=== PATIENT | male | born 1945 | race Caucasian/White ===

== ENCOUNTER 2024-10-06 10:55 | Outpatient (AMB) | payer MEDICARE, MEDICAID, SELFPAY ==
--- NOTE | 2024-10-06 10:57 | A.OFFPC_ITS ---
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 Note: patient here for new patient visit Feather Separator Required: No Accompanied by: Sister Allergies latex Allergy (Intermediate, Verified 10/06/24 11:12) Rash Penicillins Allergy (Intermediate, Verified 10/06/24 11:12) Swelling Medication List - Last Reviewed 10/06/24 by Erika Chicas MA albuterol sulfate 90 mcg/actuation 2 puffs inhalation Q4-6H PRN atorvastatin 80 mg PO DAILY benzonatate 100 mg PO BID PRN cetirizine (All Day Allergy (cetirizine)) 10 mg PO DAILY esomeprazole magnesium (Nexium) 40 mg PO DAILY fluoxetine (Prozac) 20 mg PO DAILY lorazepam 0.5 mg PO BID PRN pregabalin (Lyrica) 75 mg PO BID sucralfate 1 g PO DAILY tamsulosin 0.4 mg PO DAILY Tobacco use date assessed: 10/06/24 Fall risk assessment: 2 + Falls in past year Last assessed Fall Risk: 10/06/24 Dental Screening Dental Screen Date: 10/06/24 Did you have a dental visit in the last 12 months?: Yes Did you have a dental problem in the last 6 months where you did not have access to dental care?: No Was dental information given to patient?: Patient has dentist HPI HPI Comments History of Present Illness Details 79-year-old male, accompanied by his sis angel, presents to [facility]. He was followed by the [place] in [place] but does not recall the last time he was seen. Prior PCP? - Dr. Ortiz, [facility] Last office visit - 20 years ago Last CPE - About 1.5 years ago Last labs - 6-7 months ago Acute issue(s) - Hyperlipidemia: He is on atorvastatin 80 mg daily. - GERD: He is Nexium 40 mg daily and suc ralfate 1 g daily. - BPH: He is on tamsulosin 0.4 mg daily. - BLE neuropathy: He is on pregabalin 75 mg twice daily. - Anxiety and depression: He is on fluox etine 20 mg daily and lorazepam 0.5 mg twice daily as needed. He is followed a psychiatrist every 6 months. - Seasonal allergies: He is on cetirizin e 10 mg daily and Flonase 2 spray in each nostril daily. He is on albuterol inhaler for difficulty breathing during an allergy flare. He has been experiencing frontal headache, runny nose, and cough since yesterday. - Sleep apnea: He is on CPAP. - Chronic low back pain. He had L4-5 fus ion. He takes Tylenol as needed. He did not want opioid prescribed. - Unsteady gait: He uses cane and walker for ambulation. Past Medical History - Hyperlipidemia, GERD, sinusitis, back disorder, BPH, brain aneurysm (2mm), BLE neuropathy, unsteady gait, sleep apnea, anxiety, depression Surgical History - Rotator cuff repair bilateral shoulder , left ankle repair with metal plate, laminectomy with L4-5 fusion, cervical spine fusion Family History - PGF: Alcohol abuse - MGF: Committed suicide Social History - Former smoker, smoked 1/2 pack daily x 15 years. Does not vape. Does not drink alcohol. Denies recreational drug use - Has been making healthy dietary choice s. Exercises routinely. Generally sleep well Health maintenance - Last eye exam was 4 months ago with dieudonne SCHOFIELD in [place]. He was on a release for his PCP to obtain his ophthalmology record - Last dental visit was 6 moths ago - He has never had a tetanus vaccine; he will schedule an appointment for Tdap vaccine when he comes in for blood work - He notes that he is up-date on the isa ngles and pneumonia vaccines. He will obtain his immunization record for his PCP to review - HE notes that he is up-to-date on the flu vaccine - Last colonoscopy was 12 years ago: rob mal. [place] [facility] [place] a [place] Specialists - [facility] Neurology (aneurysm and spine issu es) - Dr. Cedric Paul, psychiatrist [facility] Medical History (Updated 10/06/24 @ 12:21 by Denver Mckinley CNP) Brain aneurysm Depression Anxiety Imbalance Neuropathy Enlarged prostate Acid reflux Back disorder High cholesterol Sinusitis Surgical History (Updated 10/06/24 @ 14:10 by Denver Mckinley CNP) Status post ORIF of fracture of ankle History of repair of left rotator cuff History of repair of right rotator cuff History of laminectomy Family History (Updated 10/06/24 @ 12:55 by Erika Chicas MA) Paternal Grandfather Alcohol abuse Maternal Grandfather Suicide Social History Housing: House Patient Tobacco Use Status: Former Tobacco user Cigarette Packs Per Day: 0.5 Cigarettes Per Day: 10 Years Smoked: 15 e-Cigarette/Vaping Use: Never Used Second Hand Smoke Exposure: No service: No Current occupational status: disabled Current occupational exposures/hazards: No Cognitive needs: Yes (cane) Hearing needs: No Vision needs: Yes Questionnaire PHQ-9 Over the last 2 weeks, how often have you been bothered by any of the following problems? 1. Little interest or pleasure in doing things: not at all 2. Feeling down, depressed, or hopeless: not at all 3. Trouble falling or staying asleep, or sleeping too much: not at all 4. Feeling tired or having little energy: not at all 5. Poor appetite or overeating: not at all 6. Feeling bad about yourself - or that you are a failure or have let yourself or your family down: not at all 7. Trouble concentrating on things, such as reading the newspaper or watching television: not at all 8. Moving or speaking so slowly that other people could have noticed. Or the opposite - being so fidgety or restless that you have been moving around a lot more than usual: not at all 9. Thoughts that you would be better off or of hurting yourself in some way: not at all Total score: 0 Depression Screening Interpretation: Negative Depression Screening Done: Yes 14151 - PHQ-9 Billing: Yes Source: Developed by Drs. Orlando Bowen, Dorys Monae, Luan Bonilla and colleagues, with an educational josé miguel from [email or web address]. Thrive Questionnaire Date Thrive assessed: 10/06/24 I am a: Patient What is your living situation today?: I have a steady place to live Within the past 12 months, did the food you bought not last and you didn't have the money to get more?: Never true Within the past 12 months, did you worry whether your food would run out before you got money to buy more?: Never true Do you have trouble paying for medicines?: No Do you have trouble getting transportation to medical appointments?: No Do you have trouble paying your heating and electricity bill?: No Do you have trouble taking care of your child, family member or friend?: No Do you have trouble with day-to-day activities such as bathing, preparing meals, shopping, managing finances, etc.?: Yes Are you currently unemployed and looking for a job?: No Are you interested in more education?: No Please select the resources that you would like help with: None Currently or been in a relationship where the following occur: No concerns reported THRIVE Score: 0 AUDIT C Alcohol Use Questionnaire (AUDIT-C) 1. How often do you have a drink containing alcohol?: Never 2. How many drinks containing alcohol do you have on a typical day when you are drinking?: 1 or 2 3. How often do you have six or more drinks on one occasion?: Never Total Score: 0 Score Reviewed/Action Taken: Yes TUAN-7 AMB Questionnaire TUAN-7 Date TUAN - 7 assessed: 10/06/24 Feeling nervous, anxious, or on edge: 0 = Not at all Not being able to stop or control worryin = Not at all Worrying too much about different things: 0 = Not at all Trouble relaxin = Not at all Being so restless that it is hard to sit still: 0 = Not at all Becoming easily annoyed or irritable: 0 = Not at all Feeling afraid as if something awful might happen: 0 = Not at all Total TUAN-7 score (0-4 normal; 5-9 mild; 10-14 moderate; 15-21 severe): 0 Source: Developed by Drs. Orlando Bowen, Dorys Monae, Luan Bonilla and colleagues, with an educational josé miguel from [email or web address]. TUAN-7 Assessment Billing TUAN-7 Assessment Tool: TUAN-7 Assessment 83177 Review of Systems Const Details: Denies chills, Denies fatigue, Denies fever(s), Reports headache(s) and Denies weakness HEENT Denies change in vision, Denies dizziness, Reports headache(s), Denies hearing loss, Denies nasal congestion, Denies sinus pain, Denies sinus pressure and Den ies sore throat Card Denies chest pain, Denies lightheadedness, Denies dyspnea and Denies other (palpitations) Resp Reports cough, Denies dyspnea and Denies wheezing GI Denies abdominal pain, Denies melena, Denies hematochezia, Denies change in bowel habits, Denies dyspepsia and Denies nausea Denies hematuria and Denies dysuria Musc Reports low back pain, Denies abnormal gait, Denies numbness and Denies tingling Skin/Breast Denies rash, Denies unusual bruising and Denies wounds Neuro Reports abnormal gait, Denies dizziness, Reports headache(s), Denies memory loss, Denies numbness, Denies Sensory deficit (Neuro), Denies tingling and Denies weakness Psych Denies anxiety, Denies depression and Denies memory loss Endo Denies cold intolerance, Denies fatigue, Denies heat intolerance, Denies polydipsia and Denies polyuria Jayce/Lymph Denies easy bleeding and Denies easy bruising Aller/Immun Denies wheezing Physical exam (Primary Care) Vital Signs: Last Vital Signs Temp 97.7 F 10/06/24 11:11 Pulse 66 10/06/24 11:11 Resp 16 10/06/24 11:11 BP 129/61 10/06/24 11:11 Pulse Ox 96 10/06/24 11:11 Oxygen Delivery Method Room Air 10/06/24 11:11 BMI result Body Mass Index 28.2 Tobacco/Smoking Status: Tobacco use Status Tobacco use date assessed 10/06/24 10/06/24 11:11 Patient Tobacco Use Status Never used Tobacco 10/06/24 11:11 e-Cigarette/Vaping Use Never Used 10/06/24 11:11 PHQ-9: PHQ-9 Score PHQ-9: Total score 0 10/06/24 12:11 Depression Screening Interpretation: Negative Thrive Assessment: Date of Thrive Assessment Date Thrive assessed 10/06/24 10/06/24 11:00 Currently or been in a relationship where the following occur: No concerns reported Const Other: General: no acute distress, well developed, alert and awake Nutritional Appearance: well nourished Orientation/consciousness: patient oriented x3 HENMT Head: Yes normocephalic and Yes atraumatic Ears: hearing grossly normal bilaterally and TM's normal bilaterally General nose exam: Normal external nose present and Normal nares present Mouth: Normal oral and palatal mucosa present and moist mucous membranes Teeth and gingiva: Full top and bottom denture Throat: Yes oropharynx normal Eyes Pupils: Equal, round and reactive pupils present and Pupil accommodation reflex normal EOM: EOMs intact bilaterally Neck Neck: Yes normal visual inspection, Yes no lymphadenopathy and Yes trachea midline Thyroid: Thyroid normal Carotids: no bruits Lymphatic: no lymphadenopathy noted Chest Chest palpation & inspection: normal inspection of the chest Resp Effort & Inspection: normal respiratory effort Auscultation: clear to auscultation bilaterally Cardio Rate: regular rate Rhythm: regular rhythm Heart sounds: S1 normal heart sound present, S2 normal heart sound present, no gallops, no murmurs and no rubs Bruits: no abdominal aortic bruits and no carotid bruits GI Palpation (GI): No Abdominal aortic bruit present, Soft to palpation, nontender, No hepatosplenomegaly present and No Rebound tenderness present Auscultation: normal bowel sounds General: Yes no CVA tenderness Back/Spine/Pelvis Back: no CVA tenderness Cervical Spine: cervical ROM normal and No Cervical spine tenderness Thoracic/Lumbar Spine: thoraco-lumbar ROM normal, No pain with thoraco-lumbar ROM, No thoracic spinal tenderness and positive lumbar spinal tenderness Skin General: warm and dry. Normal skin color. Normal skin turgor Lesions: no lesions Rashes: no rashes Trauma: no lacerations or abrasions Wounds: no wounds Nails: normal Neuro General: patient oriented x3, gait normal and CN's II-XI intact bilaterally Cranial nerves: Yes Equal, round and reactive pupils present Cognition (Neuro): normal cognition Gait exam (Neuro): Normal gait present Motor exam (neuro): 5/5 motor strength present throughout Sensory Exam: No Sensory deficit (Neuro) Deep tendon reflexes (DTR's): Right patellar reflex intensity grade: 2+ and Left patellar reflex intensity grade: 2+ Extrem General: Yes normal to inspection, No edema and No calf tenderness Psych Appearance: grossly normal Affect: normal affect Attitude: cooperative Thought process: Normal thought process present Coding Level of Care Code New Pt Level 3 (02813) New Pt Prev Care >65yr (58397) Diagnoses Normal physical examination, routine Z00.00 High cholesterol E78.00 Acid reflux K21.9 Enlarged prostate N40.0 Neuropathic pain of both legs G57.93 Unsteady gait R26.81 Brain aneurysm I67.1 Sleep apnea treated with continuous positive airway pressure (CPAP) G47.30 Anxiety F41.9 Depression F32.A Viral upper respiratory illness J06.9 Chronic low back pain M54.50; G89.29 Prostate cancer screening Z12.5 Colon cancer screening Z12.11 Laboratory tests ordered as part of a complete physical exam (CPE) Z00.00 Additional Codes TUAN-7 Assessment Billing - TUAN-7 Assessment Tool: TUAN-7 Assessment 15638 ([id number]) PHQ-9 - 22129 - PHQ-9 Billing: Yes ([id number]) Assessment & Plan Assessment & Plan (1) Normal physical examination, routine: Code(s): Z00.00 - Encounter for general adult medical examination without abnormal findings Category: Medical Plan: Normal physical exam except for positive tandem gait using his cane. Encouraged to use his assistive devices at all times for ambulation. Continue current treatment regimen. Perform lab work 2-3 days before next visit. Follow-up for telehealth visit in 2-3 weeks for labs review or sooner with symptoms or concerns. Verbalized understanding and agreed with treatment plan. (2) High cholesterol: Code(s): E78.00 - Pure hypercholesterolemia, unspecified Category: Medical Plan: He is on atorvastatin 80 mg daily. Will check lipid panel levels and make changes as needed. (3) Acid reflux: Code(s): K21.9 - Gastro-esophageal reflux disease without esophagitis Category: Medical Plan: He is Nexium 40 mg daily sucralfate 1 g daily. Follow-up with symptoms or concerns. Verbalized understanding and agreed with the plan. (4) Enlarged prostate: Code(s): N40.0 - Benign prostatic hyperplasia without lower urinary tract symptoms Category: Medical Plan: He is on tamsulosin 0.4 mg daily. Follow-up with symptoms or concerns. Verbalized understanding and agreed with the plan. (5) Neuropathic pain of both legs: Code(s): G57.93 - Unspecified mononeuropathy of bilateral lower limbs Category: Medical Plan: He is pregabalin 75 mg twice daily. Encouraged to use assistive devices for ambulation to prevent fall. Follow-up as needed. Verbalized understanding and agreed with treatment plan. (6) Unsteady gait: Code(s): R26.81 - Unsteadiness on feet Category: Medical Plan: Likely related to bilateral lower extremity neuropathy. Continue to take pregabalin as prescribed. Encouraged to use assistive devices for ambulation at all times. Verbalized understanding and agreed with treatment plan. (7) Brain aneurysm: Code(s): I67.1 - Cerebral aneurysm, nonruptured Category: Medical Plan: Reports 2 mm brain aneurysm. No acute symptoms at this time. Followed by [facility] Neu[facility]. (8) Sleep apnea treated with continuous positive airway pressure (CPAP): Code(s): G47.30 - Sleep apnea, unspecified Category: Medical Plan: Continue current treatment regimen. Follow-up as needed. Verbalized understanding and agreed with the plan. (9) Anxiety: Code(s): F41.9 - Anxiety disorder, unspecified Category: Medical Plan: Controlled anxiety and depressive symptoms. PHQ-9 and TUAN-7 scores are normal. Continue to take fluoxetine and lorazepam as prescribed. Routine exercise encouraged. Follow-up with psychiatrist as planned. Verbalized understanding and agreed with treatment plan. (10) Depression: Code(s): F32.A - Depression, unspecified Category: Medical Plan: Plan as above. (11) Viral upper respiratory illness: Code(s): J06.9 - Acute upper respiratory infection, unspecified Category: Medical Plan: Likely viral illness though possibly allergies No exam evidence of bacterial infection Viral illness There is no antibiotic medication for viruses.? They must run their course.? Most average 5-7 days but 7-10 days is not uncommon and up to 14 days is still possible.? A cough is often the last symptom to resolve and this can last for weeks in some cases. Rest Hydrate well -? Drink plenty of fluids.? Especially water. Tylenol or ibuprofen for muscle aches, headache, fever/discomfort Benzonatate as prescribed for cough. Cannot rule out COVID-19/RSV/Flu infection Nasal swab acquired and will be sent to the lab Return for new or worsening symptoms Verbalized understanding and agreed with treatment plan. (12) Chronic low back pain: Code(s): M54.50 - Low back pain, unspecified; G89.29 - Other chronic pain Category: Medical Plan: Reports chronic low back pain. He had L4-5 fusion. He takes Tylenol as needed. He did not want opioid prescribed. Lumbar spine tenderness to palpation. Continue to take Tylenol as needed. Warm/cool compresses encouraged. Follow-up with Neurology as planned. Verbalized understanding and agreed with treatment plan. (13) Prostate cancer screening: Code(s): Z12.5 - Encounter for screening for malignant neoplasm of prostate Category: Medical Plan: PSA lab ordered. (14) Colon cancer screening: Code(s): Z12.11 - Encounter for screening for malignant neoplasm of colon Category: Medical Plan: Last colonoscopy was 12 years ago: normal. [place] [facility] [place]. (15) Laboratory tests ordered as part of a complete physical exam (CPE): Code(s): Z00.00 - Encounter for general adult medical examination without abnormal findings Category: Medical Plan: Fasting labs ordered as part of a complete physical exam. Advised to fast for at least 10 hours before getting labs drawn. May drink water Verbalized understanding and agreed with treatment plan. Orders: Orders Complete Blood Count Auto Diff Today Z00.00 - Encounter for general adult medical examination without abnormal findings Vitamin D 25-OH Total Today Z00.00 - Encounter for general adult medical examination without abnormal findings Comprehensive [place]. Panel Fast Today Z00.00 - Encounter for general adult medical examination without abnormal findings Lipid Panel Today Z00.00 - Encounter for general adult medical examination without abnormal findings Microalbumin, Random (w Creat) Today Z00.00 - Encounter for general adult medical examination without abnormal findings PSA, Ultra Sensitive Today Z00.00 - Encounter for general adult medical examination without abnormal findings TSH reflex Free T4 Today Z00.00 - Encounter for general adult medical examination without abnormal findings UA CC w/rflx Micro + Cult Today Z00.00 - Encounter for general adult medical examination without abnormal findings SARS-CoV2/FLU/RSV Today J06.9 - Acute upper respiratory infection, unspecified Referrals Gastroenterology Referral Z12.11 - Encounter for screening for malignant neoplasm of colon Medications: New benzonatate 100 mg PO BID PRN 10 caps 0RF cough
[2024-10-06 11:11] VITALS: BP 129/61; PULSE 66; RESP 16; TEMP 36.5; O2SAT 96; BMI 28.2
== END 2024-10-06 12:08 | disposition home or self-care (01) ==
LOC: HO.HMCFM 10:56
PROVIDERS: PCP Nurse Practitioner Family; Visit Provider Nurse Practitioner Family
DX: Z00.00 Encounter for general adult medical examination without abnormal findings (principal); E78.00 Pure hypercholesterolemia, unspecified; K21.9 Gastro-esophageal reflux disease without esophagitis; N40.0 Benign prostatic hyperplasia without lower urinary tract symptoms; G57.93 Unspecified mononeuropathy of bilateral lower limbs; R26.81 Unsteadiness on feet; I67.1 Cerebral aneurysm, nonruptured; G47.30 Sleep apnea, unspecified; F41.9 Anxiety disorder, unspecified; F32.A Depression, unspecified; J06.9 Acute upper respiratory infection, unspecified; M54.50 Low back pain, unspecified

== ENCOUNTER 2024-10-06 10:55 | Outpatient (REF) | payer MEDICARE, MEDICAID, SELFPAY ==
[2024-10-06 16:45] LABS: Influenza A PCR NEGATIVE (Negative); Influenza B PCR NEGATIVE (Negative); Resp Syncy Virus RNA Qual PCR NEGATIVE (Negative); SARS COV2 PCR INHOUSE NEGATIVE (Negative)
== END 2024-10-06 10:56 | disposition home or self-care (01) ==
LOC: HO.LAB 10:55
PROVIDERS: PCP Nurse Practitioner Family; Visit Provider Nurse Practitioner Family
DX: Z00.00 Encounter for general adult medical examination without abnormal findings (principal); J06.9 Acute upper respiratory infection, unspecified; E78.00 Pure hypercholesterolemia, unspecified; K21.9 Gastro-esophageal reflux disease without esophagitis; N40.0 Benign prostatic hyperplasia without lower urinary tract symptoms; G57.93 Unspecified mononeuropathy of bilateral lower limbs; R26.81 Unsteadiness on feet; I67.1 Cerebral aneurysm, nonruptured; G47.30 Sleep apnea, unspecified; F41.9 Anxiety disorder, unspecified; F32.A Depression, unspecified; M54.50 Low back pain, unspecified; G89.29 Other chronic pain; Z79.899 Other long term (current) drug therapy
CPT/HCPCS: 0241U; 96127; 99202; 99387

== ENCOUNTER 2024-10-07 10:01 | Outpatient (REF) | payer MEDICARE, MEDICAID, SELFPAY ==
[2024-10-07 11:28] LABS: MANUAL DIFF FLAG NO
[2024-10-07 11:42] LABS: Basophils Percent Auto 0.3 % (0-2); Eosinophils Absolute Auto 0.2 X10*3/uL (0.0-0.4); Eosinophils Percent Auto 3.3 % (0-4); Hematocrit 32.8 % (42.0-52.0); Hemoglobin 10.7 g/dl (14.0-18.0); Imm Gran Abs Auto 0.02 X10*3/uL (0.00-0.03); Imm Gran Pct Auto 0.3 % (0.0-0.4); Lymphocytes Absolute Auto 1.9 X10*3/uL (1.2-4.9); Lymphocytes Percent Auto 29.4 % (20-40); Mean Corpuscular HGB Conc 32.6 g/dl (31.0-36.0); Mean Corpuscular Hemoglobin 26.2 pg (27.0-33.0); Mean Corpuscular Volume 80.4 fL (80.0-98.0); Mean Platelet Volume 9.9 fL (9.4-12.4); Monocytes Absolute Auto 0.7 X10*3/uL (0.1-1.2); Monocytes Percent Auto 11.3 % (2-11); Neutrophils Absolute Auto 3.5 x10*3/uL (2.0-8.3); Neutrophils Percent Auto 55.4 % (45-73); Platelet Count 269 X10*3/uL (160-400); Red Blood Count 4.08 X10*6/uL (4.60-5.80); Red Cell Distribution Width 14.5 % (11.0-16.0); White Blood Count 6.3 X10*3/uL (4.8-10.8)
[2024-10-07 12:35] LABS: Alanine Aminotransferase 18 U/L (0-40); Albumin Level 3.9 g/dL (3.5-5.0); Alkaline Phosphatase 70 U/L (39-117); Anion Gap 11 (12-20); Aspartate Amino Transferase 31 U/L (5-37); Bilirubin Total 0.4 mg/dL (0.0-1.0); Blood Urea Nitrogen 15 mg/dL (9-16); Calcium 9.2 mg/dL (8.4-10.2); Carbon Dioxide 26 mmol/L (22-29); Chloride 109 mmol/L (96-108); Cholesterol 154 mg/dL (<200); Estimated Glomerular Filt Rate > 60; Glucose Fasting 87 mg/dL (60-99); HDL Cholesterol 37 mg/dL (>40); LDL Cholesterol Calculated 94 mg/dL (<100); Sodium 142 mmol/L (135-145); Total Protein 7.7 g/dL (6.5-8.0); Triglycerides 119 mg/dL (<150)
[2024-10-07 12:40] LABS: TSH reflex Free T4 1.21 uIU/mL (0.32-4.0); Vitamin D 25-OH Total 31.6 ng/mL (>30)
[2024-10-07 14:36] LABS: Appearance Urine Clear; Color Urine Yellow; Glucose Urine UA Negative (Negative); Leukocyte Esterase Urine Negative (Negative); Nitrite Urine Negative (Negative); Specific Gravity - Urine 1.015 (1.005-1.025); Urine Blood Negative (Negative); Urine Ketones Negative (Negative); Urine Protein Negative (Neg-Trace)
[2024-10-07 15:15] LABS: Creatinine Urine 124.62 mg/dL
== END 2024-10-07 10:02 | disposition home or self-care (01) ==
LOC: HO.WFDLDS 10:01
PROVIDERS: Visit Provider Nurse Practitioner Family
DX: Z00.00 Encounter for general adult medical examination without abnormal findings (principal); Z12.5 Encounter for screening for malignant neoplasm of prostate; Z13.29 Encounter for screening for other suspected endocrine disorder; Z13.220 Encounter for screening for lipoid disorders; Z13.1 Encounter for screening for diabetes mellitus; Z13.228 Encounter for screening for other metabolic disorders
CPT/HCPCS: 36415; 80053; 80061; 81003; 82043; 82306; 82570; 84153; 84443; 85025

== ENCOUNTER 2024-10-11 08:55 | Outpatient (AMB) | payer MEDICARE, MEDICAID, SELFPAY ==
--- NOTE | 2024-10-11 09:07 | AM.OFFVISNUR ---
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 Maker Required: No Accompanied by: Self / Same As Patient Allergies latex Allergy (Intermediate, Verified 10/06/24 11:12) Rash Penicillins Allergy (Intermediate, Verified 10/06/24 11:12) Swelling Immunizations Boostrix Tdap 2.5 Lf unit-8 mcg-5 Lf/0.5 mL intramuscular syringe Performing Provider: Denver Mckinley CNP Performing Location: [facility] [place] Administered by: Katie Patterson RN on 10/11/24 09:07 Dose Route Admin Location Dispensed Lot Number Expiration Date [employer] Power Transformer Repairer 0.5 mL IM Left Deltoid 0.5 mL [id number] 05/17/25 [id number] Berg VIS Given Date VIS Provided VIS Publication Date 10/11/24 Single Vaccine 21 Eligibility Eligibility Date Funding Source Not [facility] Eligible 10/11/24 Private Assessment & Plan Assessment & Plan Orders: Orders TDaP Immunization Today Z23 - Encounter for immunization Medications: New Boostrix Tdap (diphth,pertus(acell),tetanus) 0.5 mL IM ONCE 0.5 mL 0RF NS Z23 - Encounter for immunization Coding Level of Care Code Established Pt Est Pt Level 1 (65249) Patient Type Established History Problem Focused Exam Problem Focused Medical Decision Making Straight Forward Time Spent (min) 5
== END 2024-10-11 09:09 | disposition home or self-care (01) ==
LOC: HO.HMCFM 08:55
PROVIDERS: PCP Nurse Practitioner Family; Visit Provider Nurse Practitioner Family
DX: Z23 Encounter for immunization (principal)

== ENCOUNTER → 2024-10-11 08:55 | Outpatient (BNVA) | payer MEDICARE, MEDICAID, SELFPAY | PROVIDERS: PCP Nurse Practitioner Family; Visit Provider Nurse Practitioner Family | DX: Z23 Encounter for immunization (principal) | CPT/HCPCS: 90471; 90715; 99211 ==

== ENCOUNTER 2024-10-20 08:14 | Outpatient (REF) | payer MEDICARE, MEDICAID, SELFPAY ==
--- OUTSIDE RECORDS SUMMARY | 2024-10-20 08:23 | XMS_ITS | Clinical Summary ---
Author Organization [facility] Address [address] [place] [address] Care Team Providers Care Sexual Abuse Counsellor Name Role Phone Ernie Ortiz MD Primary Care Provider [phone] Allergies Active Allergy Reactions Severity Noted Date Comments Latex 12/10/2012 Penicillin G 12/10/2012 Medications Medication Sig Dispensed Refills Start Date End Date Status diazepam (VALIUM) 5 MG tablet Take 5 mg by mouth every 8 hours as needed. 0 Active atorvastatin (LIPITOR) 40 MG tablet Take 40 mg by mouth daily. 0 Active Probiotic Product (PRO-BIOTIC BLEND OR) Take by mouth. 0 Active paroxetine (PAXIL) 20 MG tablet Take 20 mg by mouth every morning. 0 Active omeprazole (PRILOSEC) 20 MG capsule TAKE 1 CAPSULE BY MOUTH 2 TIMES DAILY. 60 Cap 2 09/18/2016 Active Active Problems Problem Noted Date Neuropathy 08/10/2015 Overview: Both legs. Martin to be spinal stenosis and neuropathy GERD (gastroesophageal reflux disease) 0 08/10/2015 Vitamin D deficiency 11/23/2014 Tobacco use 09/13/2014 Overview: 1 ppd x 50 yrs. Stopped 08/03 Screening for AAA (abdominal aortic aneu rysm) 09/13/2014 Overview: [facility]. Hypercholesteremia 09/13/2014 Colon cancer screening 09/13/2014 Overview[facility]. Repeat 10 yrs Spinal stenosis 12/10/2013 Overview: [facility]. Multilevel degenerative changes with spinal canal stenosis, most severe L4-5. Similar to 2014 Obesity, unspecified 12/11/2012 Social History Tobacco Use Types Packs/Day Years Used Date Smoking Tobacco: Former Cigarettes 1 45 Q uit: 07/25/2013 Comments:quit 3 months ago Alcohol Use Standard Drinks/Week Comments Yes 0 (1 standard drink = 0.6 oz pur e alcohol) occ Sex Assigned at Date Recorded Not on file Last Filed Vital Signs Vital Sign Reading Time Taken Comments Blood Pressure 130/68 11/14/2015 1:01 PM EDT Pulse 70 11/14/2015 1:01 PM EDT Temperature 36.6 ??C (97.8 ??F) 10/16/2015 10:48 AM E DT Respiratory Rate 14 10/16/2015 10:48 AM EDT Oxygen Saturation - - Inhaled Oxygen Concentration - - Weight 91.4 kg (201 lb 6.4 oz) 11/14/2015 1:01 P M EDT Height 167.6 cm (5' 6 ) 11/14/2015 1:01 PM EDT Body Mass Index 32.51 11/14/2015 1:01 PM EDT Plan of Treatment Health Maintenance Due Date Last Done Comments Covid-19 Vaccine (#1) 1945 HEPATITIS C SCREENING 1965 TOBACCO CHECK/ADVISE 1965 DTAP/TDAP/TD (1 - Tdap) 1966 SHINGLES VACCINE (1 of 2) 1997 Lung Cancer Screening (Low Dose CT) 2002 PNEUMOCOCCAL VACCINE (1 - PCV) 2012 CHOLESTEROL SCREENING 08/10/2020 08/10/2015 BMI CHECK/ADVISE 07/21/2024 INFLUENZA (Season Ended) 2025 Care Teams Sexual Abuse Counsellor Relationship Specialty Start Date End Date Ernie Ortiz MD [address] [place] [address] PCP - General Internal Medicine 04/12/14
--- OUTSIDE RECORDS SUMMARY | 2024-10-20 08:23 | XMS_ITS | Encounter Summary ---
Author Name [facility] [place] [facility] [place] [facility] [place] Address [address] [place] [address] Care Team Providers Care Ui Programmer Name Role Phone RICHARD OTOOLE Primary Care Provider Unavailabl e Insurance Providers: All historical and current Section Date Range: From patient's date of to the date document was created. This section includes the names of all active insurance providers for the patient. Insurance Provider Type of Coverage Plan Name Start of Policy Coverage End of Policy Coverage Group Number Member ID Insurance Provider's Telephone Number Policy Ascencio's Name Patient's Relationship to Policy Ascencio [facility] MEDICAID MEDICAID [facility] Jul 21, 2020 [id number] MARITZA POZO PATIENT [facility]ICAID [facility] Jul 21, 2020 [id number] MARITZA POZO PATIENT MEDICAID MEDICAID [facility] Jul 21, 2012 MEDICAI D [id number] MARITZA POZO PATIENT MEDICARE (WNR) MEDICARE (M) PART A Mar 21, 1997 PART A [id number] MARITZA POZO PATIENT MEDICARE (WNR) MEDICARE (M) PART B Mar 21, 1997 PART B [id number] [phone] MARITZA POZO PATIENT MEDICARE (WNR) MEDICARE (M) PART A Mar 21, 1997 PART A [id number] MARITZA POZO PATIENT MEDICARE (WNR) MEDICARE (M) PART B Mar 21, 1997 PART B [id number] MARITZA POZO PATIENT MEDICARE (WNR) MEDICARE (M) PART A Mar 21, 1997 PART A [id number] MARITZA POZO PATIENT MEDICARE (WNR) MEDICARE (M) PART B Mar 21, 1997 PART B [id number] MARITZA POZO PATIENT MEDICARE (WNR) MEDICARE (M) PART B Mar 21, 1997 PART B [id number] MARITZA POZO PATIENT MEDICARE (WNR) MEDICARE (M) PART A Mar 21, 1997 PART A [id number] MARITZA POZO PATIENT MEDICARE (WNR) MEDICARE (M) PART B Mar 21, 1997 PART B [id number] MARITZA POZO PATIENT Selected Encounter This section includes the information on record at [place] for the Encounter. Date/Time Encounter Type Encounter Description Reason Pro vider Source Oct 18, 2024 12:00 AM Outpatient Encounter EVENT (HISTORICAL) I[facility] Encounter Template Text not used by [place] Plan of Treatment: Future Appointments (+ 6 months) and Future Tests (+/- 45 days) The Plan of Treatment section includes future care activities for the patient from all [place] treatmentfacilities. This section includes future appointments and future orders which are active, pending or scheduled. Future Appointments This section includes appointments that were scheduled to occur 6 months from the date of the Encounter, up to a maximum of 20 appointments. The data comes from all [place] treatment facilities. Appointment Date/Time Appointment Type Appointme nt Facility Name Nov 09, 2024 09:30 AM AMBULATORY - PSYCHIATRY [facility] December 16, 2024 01:00 PM AMBULATORY - MEDICINE [facility] Social History: Smoking Status (Most current) and Tobacco Use (All prior to encounter date) This section includes the most current, and the historical, smoking and tobacco- related health factors from the [facility] facility where the Encounter took place. Current Smoking Status This section includes the most current smoking, or tobacco-related health factor, from the [place] facility where the Encounter took place. Date/Time Current Smoking Status Comment Facil ity Mar 23, 2021 09:02 AM VA-TOBACCO FORMER USER [facility] Tobacco Use History This section includes a history of the smoking, or tobacco-related health factors, that were collected on or before the date of the Encounter. The data comes from the [place] facility where the Encounter took place. Date/Time Smoking Status/Tobacco Use Comment F acility Mar 23, 2021 09:02 AM [place]-TOBACCO QUIT 5 TO < 15 YRS [facility]
--- OUTSIDE RECORDS SUMMARY | 2024-10-20 08:24 | XMS_ITS | Clinical Summary ---
Author Organization [address] [facility] Address [address] [place] [address] Phone Care Team Providers Care Food Safety Field Specialist Name Role Phone Jovany Watkins Primary Care Provider [phone] Allergies Active Allergy Reactions Criticality Noted Date Comments Latex 12/10/2012 Penicillin G 12/10/2012 Medications omeprazole (PriLOSEC) [address] capsule Take 1 capsule (20 mg total) by mouth 2 (two) times a day. 09/18/2016 Active L.acid/L.casei/ B.bif/B.melissa/FOS (PROBIOTIC BLEND ORAL) Take by mouth. Active PARoxetine (PAXIL) 20 mg tablet Take 1 tablet (20 mg total) by mouth 1 (one) time each day in the morning. Active atorvastatin (LIPITOR) 40 mg tablet Take 1 tablet (40 mg total) by mouth 1 (one) time each day. Active diazePAM (VALIUM) 5 mg tablet Take 1 tablet (5 mg total) by mouth every 8 (eight) hours if needed. Max Daily Amount: 15 mg Active FLUoxetine (PROzac) 20 mg capsule Take 1 capsule (20 mg total) by mouth 1 (one) time each day. Active pantoprazole (PROTONIX) 40 mg EC tablet Take 1 tablet (40 mg total) by mouth 1 (one) time each day before breakfast. Do not crush, chew, or split. Active LORazepam (ATIVAN) 0.5 mg tablet Take 1 tablet (0.5 mg total) by mouth every 6 (six) hours if needed for anxiety. Max Daily Amount: 2 mg Active esomeprazole (NexIUM) [address] capsule Take 1 capsule (40 mg total) by mouth 1 (one) time each day before breakfast. Do not open capsule. 30 each 3 08/16/2024 Active Active Problems Problem Noted Date Diagnosed Date GERD (gastroesophageal reflux disease) 6 Neuropathy 08/10/2015 Overview (08/03/2024): Both legs. [place] to be spinal stenosis and neuropathy Vitamin D deficiency 11/23/2014 Hypercholesteremia 09/13/2014 Spinal stenosis 12/10/2013 Overview (08/03/2024): [facility] Multilevel degenerative changes with spinal canal stenosis, most severe L4-5. Similar to 2013 Obesity, unspecified 12/11/2012 Encounters Date Type Department Care Team Description 08/18/2024 8:19 AM EST - 08/18/2024 11:59 PM EST Hospital Encounter [facility] Xray [address] [place] [phone] Gastroesophageal reflux disease, unspecified whether esophagitis present Discharge Disposition: Home or Self Care 08/16/2024 9:20 AM EST Consult Gastroenterology - [place] 175 [facility] [address] [phone] Mishel Chang PA Gastroesophageal reflux disease, unspecified whether esophagitis present (Primary Dx) 08/11/2024 Telephone Gastroenterology [facility] 175 [facility] [address] [phone] Madiha Humphreys MD Appointment from Last 3 Months Social History Tobacco Use Types Packs/Day Years Used Date Smoking Tobacco: Never Assessed Sex and Gender Information Value Date Recorded Sex Assigned at Male 08/17/2024 3:27 PM EST Legal Sex Male 1:11 PM EST Gender Identity Male 08/17/2024 3:27 PM EST Sexual Orientation Straight 08/17/2024 3: 27 PM EST Last Filed Vital Signs Vital Sign Reading Time Taken Comments Blood Pressure 122/82 08/16/2024 9:15 AM EST Pulse 78 08/16/2024 9:15 AM EST Temperature - - Respiratory Rate - - Oxygen Saturation - - Inhaled Oxygen Concentration - - Weight 87.1 kg (192 lb) 08/16/2024 9:15 AM EST Height 175.3 cm (5' 9 ) 08/16/2024 9:15 AM EST Body Mass Index 28.35 08/16/2024 9:15 AM EST Plan of Treatment Upcoming Encounters Date Type Department Care Team (Late st Contact Info) Description 11/17/2024 10:30 AM EDT Office Visit Gastroenterology - [place] [address] [place] [phone] Mishel Chang PA [address] [place] [address] Health Maintenance Due Date Last Done Comments RSV Immunization Adult Patients (1 - 1-dose 75+ series) 2022 Cholesterol Screening (Lipid Panel) 06/18/2022 08/10/2015 Depression Screening 06/18/2022 Falls Risk Assessment 06/18/2022 Hepatitis C Screening 06/18/2022 Lung Cancer Screening (Low Dose CT) 06/18/2022 Social Influencers of Health Screening 06/18/2022 DTaP,Tdap,and Td Vaccines (4 - Td or Tdap) 03/23/2031 03/23/2021, 02/04/2011, 05/07/2006 Zoster Vaccines Completed 10/19/2021, 09/2020, 04/01/2012 Pneumococcal Vaccine: 50+ Years Completed 01/23/2022, 06/20/2015, 06/08/2013 COVID-19 Vaccine Completed 04/21/2024, , 04/29/2022, Additional history exists Influenza Vaccine Completed 04/23/2024, , 04/20/2023, Additional history exists HIB Vaccines Aged Out No longer eligi ble based on patient's age to complete this topic HPV Vaccines Aged Out No longer eligi ble based on patient's age to complete this topic Hepatitis A Vaccines Aged Out No long er eligible based on patient's age to complete this topic Hepatitis B Vaccines Aged Out No long er eligible based on patient's age to complete this topic IPV Vaccines Aged Out No longer eligi ble based on patient's age to complete this topic MMR Vaccines Aged Out No longer eligi ble based on patient's age to complete this topic Meningococcal ACWY Vaccine Aged Out N o longer eligible based on patient's age to complete this topic Meningococcal B Vacine Aged Out No lo nger eligible based on patient's age to complete this topic RSV Immunization Patients Under 20 months Aged Out No longer eligible based on patient's age to complete this topic Varicella Vaccines Aged Out No longer eligible based on patient's age to complete this topic Procedures Procedure Name Priority Date/Time Associated Diagnosis Comments XR UGI W AIR CONTRAST Routine 08/18/2024 10:04 AM EST Gastroesophageal reflux disease, unspecified whether esophagitis present LIPID PANEL Routine 08/10/2015 from Last 3 Months or Most Recently Relevant to Health Maintenance Results * XR UGI w Air Contrast (08/18/2024 10:04 AM EST) Anatomical Region Laterality Modality Body Radiographic Ana ging 08/18/2024 11:5 8 AM EST Impressions 08/18/2024 12:02 PM EST Mild distal esophageal dysmotility with small sliding hiatal hernia. -------- FINAL REPORT -------- Dictated By: Koki Samano Dictated Date: 08/18/2024 11:58 ET Assigned Physician: Koki Samano Reviewed and Electronically Signed By: Koki Samano Signed Date: 08/18/2024 12:02 ET Workstation ID: [id number] Transcribed By: Self Edit Transcribed Date: 08/18/2024 11:58 ET Narrative 08/18/2024 12:02 PM EST INDICATION: Abdominal pain FINDINGS: Double-contrast upper GI examination was performed. CT scan of the abdomen and pelvis from March 10, 2023 reviewed. Esophagus: Normal distensibility and mucosal pattern. Mild dysmotility noted along the distal esophagus. There is no evidence of obstruction or hiatal hernia. Stomach: Normal distensibility and motility. Prompt passage of contrast from the stomach into the duodenal bulb and sweep. No gastric mass or ulceration. With the patient prone a small sliding hiatal hernia is noted. With the patient upright there is mild esophageal retention with partial decompression of the sliding hernia. Gastroesophageal reflux: Not visualized during the examination. Total patient dose: 72 mGy Procedure Note Koki Samano MD - 08/18/2024 INDICATION: Abdominal pain FINDINGS: Double-contrast upper GI examination was performed. CT scan ofthe abdomen and pelvis from March 10, 2023 reviewed. Esophagus: Normal distensibility and mucosal pattern. Mild dysmotilitynoted along the distal esophagus. There is no evidence of obstruction orhiatal hernia. Stomach: Normal distensibility and motility. Prompt passage of contrastfrom the stomach into the duodenal bulb and sweep. No gastric mass orulceration. With the patient prone a small sliding hiatal hernia isnoted. With the patient upright there is mild esophageal retention with partialdecompression of the sliding hernia. Gastroesophageal reflux: Not visualized during the examination. Total patient dose: 72 mGy IMPRESSION: Mild distal esophageal dysmotility with small sliding hiatal hernia. -------- FINAL REPORT -------- Dictated By: Koki Samano Dictated Date: 08/18/2024 11:58 ET Assigned Physician: Koki Samano Reviewed and Electronically Signed By: Koki Samano Signed Date: 08/18/2024 12:02 ET Workstation ID: [id number] Transcribed By: Self Edit Transcribed Date: 08/18/2024 11:58 ET Mishel [facility] IMG FLUOROSCOPY PROCEDURES Fi nal Result * (ABNORMAL) Lipid panel (08/10/2015) LDL/HDL Ratio 5(A) 0 - 4 Triglycerides 334(A) 0 - 150 mg/dL Cholesterol 199(A) 0 - 0 mg/dL HDL 44 >=40 mg/dL LDL Cholesterol 89 0 - 100 mg/dL Blood Venous blood specimen / Unknown Historical Provider LAB BLOOD ORDERABLES Tammy l Result from Last 3 Months or Most Recently Relevant to Health Maintenance Insurance [facility] Care Teams Food Safety Field Specialist Relationship Specialty Start Date End Date Jovany Watkins PA [address] [place] [phone] PCP - General Internal Medicine 08/11/24
--- OUTSIDE RECORDS SUMMARY | 2024-10-20 08:24 | XMS_ITS | Encounter Summary ---
Author Organization [facility] Address [address] [place] [address] Care Team Providers Care Lacquerer Name Role Phone Ernie Ortiz MD Primary Care Provider [phone] Encounter Details Date Type Department Care Team Description 09/12/2014 [facility] Report Medical Records [address] [place] [address] Abstract, Provider Social History Tobacco Use Types Packs/Day Years Used Date Smoking Tobacco: Former Cigarettes Q uit: 07/25/2013 Comments:quit 3 months ago Alcohol Use Standard Drinks/Week Comments Not Asked 0 (1 standard drink = 0.6 oz pur e alcohol) Sex Assigned at Date Recorded Not on file documented as of this encounter Plan of Treatment Not on file documented as of this encounter Visit Diagnoses Not on filedocumented in this encounter Care Teams Lacquerer Relationship Specialty Start Date End Date Ernie Ortiz MD [address] [place] [id number] PCP - General Internal Medicine 04/12/14 documented as of this encounter
--- OUTSIDE RECORDS SUMMARY | 2024-10-20 08:24 | XMS_ITS | Encounter Summary ---
Author Name [facility] Organization [facility] Address [address] [place] [id number] Care Team Providers Care Music Therapist Name Role Phone RICHARD WATKINS Primary Care Provider Unavailabl e Insurance Providers: [...] Ascencio's Name Patient's Relationship to Policy Ascencio [facility] MEDICAID MEDICAID [facility] Jul 21, 2020 [id number] MARITZA POZO PATIENT [facility]ICAID [facility] Jul 21, 2020 [id number] MARITZA POZO PATIENT MEDICAID MEDICAID [facility] Jul 21, 2012 MEDICAI D [id number] MARITZA POZO PATIENT MEDICARE (WNR) MEDICARE (M) PART A Mar 21, 1997 PART A [id number] MARITZA POZO PATIENT MEDICARE (WNR) MEDICARE (M) PART B Mar 21, 1997 PART B [id number] [phone] MARITZA POZO PATIENT MEDICARE (WNR) MEDICARE (M) PART A Mar 21, 1997 PART A [id number] [id number] MARITZA POZO PATIENT MEDICARE (WNR) MEDICARE (M) PART B Mar 21, 1997 PART B [id number] [phone] [id number] MARITZA POZO MEDICARE (WNR) MEDICARE (M) PART A Mar 21, 1997 PART A [id number] MARITZA POZO PATIENT MEDICARE (WNR) MEDICARE (M) PART B Mar 21, 1997 PART B [id number] MARITZA POZO PATIENT MEDICARE (WNR) MEDICARE (M) PART B Mar 21, 1997 PART B [id number] MARITZA POZO PATIENT MEDICARE (WNR) MEDICARE (M) PART A Mar 21, 1997 PART A [id number] MARITZA POZO MEDICARE (WNR) MEDICARE (M) PART B Mar 21, 1997 PART B [id number] [phone] MARITZA POZO PATIENT Selected Encounter This section includes the information on record at [place] for the Encounter. Date/Time Encounter Type Encounter Description Reason Provider Source Aug 04, 2024 10:00 AM OFFICE O/P EST MOD 30 MIN PRIMARY CARE/MEDICINE ICD-10-CM K21.00 Gastro-esophag eal reflux dis with esophagitis, without bleed RICHARD WATKINS [place] Encounter Template Text not used by [place] Assessments - Encounter Diagnoses This section includes the primary and secondary diagnoses documented for the Encounter. Date/Time Primary/Secondary Diagnosis Diagnosis Name Provider Source Aug 04, 2024 10:28 AM PRIMARY Gastro-esophageal reflux dis with esophagitis, without bleed RICHARD WATKINS [place] Plan of Treatment: Future Appointments (+ 6 months) and Future Tests (+/- 45 days) The Plan of Treatment section includes future care activities for the patient from all [place] treatmentfacilities. This section includes future appointments and future orders which are active, pending or scheduled. Future Appointments This section includes appointments that were scheduled to occur 6 months from the date of the Encounter, up to a maximum of 20 appointments. The data comes from all [place] treatment facilities. Appointment Date/Time Appointment Type Appointme nt Facility Name Aug 16, 2024 09:20 AM AMBULATORY - [place]ICINE [place] [facility] [facility] Aug 23, 2024 01:00 PM AMBULATORY - NONE [place] Nov 09, 2024 09:30 AM AMBULATORY - PSYCHIATRY [facility] December 16, 2024 01:00 PM AMBULATORY - MEDICINE [facility] Vital Signs: All taken on the encounter date This section contains inpatient and outpatient Vital Signs collected on the date of the Encounter. Date/Time Temperature Pulse Blood Pressure Respiratory Rate SP02 Pain Height Weight Body Mass Index Source Aug 04, 2024 10:17 AM 97 79 148/73 [address] [facility] [place] Social History: Smoking Status (Most current) and Tobacco Use (All prior to encounter date) This section includes the most current, and the historical, smoking and tobacco- related health factors from the [place] facility where the Encounter took place. Current Smoking Status This section includes the most current smoking, or tobacco-related health factor, from the [place] facility where the Encounter took place. Date/Time Current Smoking Status Comment [place] May 19, 2024 01:00 PM VA-TOBACCO NEVER USED [place] Tobacco Use History This section includes a history of the smoking, or tobacco-related health factors, that were collected on or before the date of the Encounter. The data comes from the [place] facility where the Encounter took place. Date/Time Smoking Status/Tobacco Use Comment F acility May 28, 2023 10:00 AM VA-TOBACCO NEVER USED [place] Apr 24, 2022 09:00 AM VA-TOBACCO FORMER USER [place] Apr 24, 2022 09:00 AM VA-TOBACCO QUIT 15 YRS OR MORE [place] Mar 23, 2021 09:00 AM VA-TOBACCO FORMER USER [place] Mar 23, 2021 09:00 AM VA-TOBACCO QUIT 15 YRS OR MORE [place] Apr 04, 2020 01:00 PM VA-TOBACCO NEVER USED [place] Apr 14, 2019 11:41 AM VA-TOBACCO FORMER USER [place] Apr 14, 2019 11:41 AM VA-TOBACCO QUIT 1 TO < 5 YRS [place] Apr 14, 2019 11:41 AM VA-TOBACCO QUIT 15 YRS OR MORE [place] Feb 27, 2018 02:04 PM QUIT TOBACCO USE 1 -7 YEARS AGO [place] Sep 22, 2017 09:24 AM QUIT TOBACCO USE 1 -7 YEARS AGO [place] Oct 09, 2016 10:57 AM QUIT TOBACCO USE > 7 YEARS AGO [place] Jan 15, 2016 01:07 PM QUIT TOBACCO USE 1 -7 YEARS AGO [place] Jun 20, 2015 02:04 PM QUIT TOBACCO USE I N PAST YEAR [place] Jul 22, 2014 10:51 AM CURRENT SMOKER advise stop [place] Jul 22, 2014 10:51 AM V1-PT DECLINES REF TO TOBACCO CESS [facility] Jul 22, 2014 10:51 AM V1-PT THINKING ABO UT QUIT TOBACCO USE [place] Aug 10, 2013 10:58 AM V1-PT DECLINES REF TO TOBACCO CESS [facility] Aug 10, 2013 10:58 AM V1-PT THINKING ABO UT QUIT TOBACCO USE [place] Feb 22, 2013 08:20 AM CURRENT SMOKER Pt. stated he smokes half a pack a day. [place] Aug 04, 2012 03:41 PM V1-PT DECLINES REF TO TOBACCO CESS [facility] Aug 04, 2012 03:41 PM V1-PT DECLINES TOB ACCO CESSATION [facility] Aug 04, 2012 03:41 PM V1-PT THINKING ABO UT QUIT TOBACCO USE [place] Feb 21, 2012 08:52 AM CURRENT SMOKER Pt. stated he is down to half a pack a day! [place] Feb 21, 2012 08:52 AM QUIT TOBACCO USE I N PAST YEAR [place] Aug 23, 2011 02:42 PM V1-PT DECLINES REF TO TOBACCO CESS [facility] Aug 23, 2011 02:42 PM V1-PT DECLINES TOB ACCO CESSATION [facility] Aug 23, 2011 02:42 PM V1-PT THINKING ABO UT QUIT TOBACCO USE [place] Feb 04, 2011 01:41 PM CURRENT SMOKER half a pack a day [place] Feb 04, 2011 01:41 PM V1-PT DECLINES REF TO TOBACCO CESS [facility] Feb 04, 2011 01:41 PM V1-PT DECLINES TOB ACCO CESSATION [facility] Feb 04, 2011 01:41 PM V1-PT THINKING ABO UT QUIT TOBACCO USE [place] Jun 22, 2010 09:51 AM V1-PT DECLINES REF TO TOBACCO CESS [facility] Jun 22, 2010 09:51 AM V1-PT DECLINES TOB ACCO CESSATION [facility] Jun 22, 2010 09:51 AM V1-PT NOT INTEREST ED IN QUIT TOBACCO USE [place] Oct 02, 2009 02:48 PM QUIT TOBACCO USE I N PAST YEAR [place] Dec 23, 2008 02:56 PM CURRENT SMOKER Pt. smokes les then a pack a day!! [place] Dec 23, 2008 02:56 PM V1-PT DECLINES REF TO [facility]BACCO [facility] Dec 23, 2008 02:56 PM V1-PT DECLINES TOB ACCO CESSATION [facility] Dec 23, 2008 02:56 PM V1-PT THINKING ABO UT QUIT TOBACCO USE [place] Apr 11, 2008 08:04 AM V1-PT DECLINES REF TO TOBACCO CESS [facility] Apr 11, 2008 08:04 AM V1-PT DECLINES TOB ACCO CESSATION [facility] Apr 11, 2008 08:04 AM V1-PT NOT INTEREST ED IN QUIT TOBACCO USE [place] May 22, 2007 09:25 AM CURRENT SMOKER patient currently smokes 1 pk cigarettes daily. [place] Mar 26, 2007 08:47 AM V1-PT THINKING ABO UT QUIT TOBACCO USE [place] Aug 21, 2006 08:11 AM V1-PT THINKING ABO UT QUIT TOBACCO USE [place] May 07, 2006 10:39 AM CURRENT SMOKER pt. a smoker for 45 years. [place] Jul 31, 2004 10:48 AM CURRENT SMOKER [id number] [place] Mar 17, 2003 02:07 PM CURRENT SMOKER Less than a pack a day [place] Encounter Notes: All associated encounter notes This section contains the clinical notes associated to the Encounter. Date/Time Encounter Note(s) Provider Source Oct 18, 2024 10:58 AM PREVENTIVE MEDICIN E NURSING NOTE: LOCAL TITLE: CLINICAL REMINDERS/NURSING STANDARD TITLE: PREVENTIVE MEDICINE NURSING NOTE DATE OF NOTE: OCT 18, 2024@10:58 ENTRY DATE: OCT 18, 2024@10:59:01 AUTHOR: NATO PATRICIO EXP COSIGNER: URGENCY: STATUS: COMPLETED Colonoscopy GAP Reminder: Recommendations are needed in the clinical reminder system following the patient's most recent colorectal cancer screening/surveillance test (Colonoscopy, Sigmoidoscopy or CT Colonography) Colonoscopy reminder set 5 years from OCT 18, 2024. Comments (optional): Colonoscopy due 04/19/2030 if benefits outweigh risk per Dr Spicer Avg Risk Colorectal Cancer Screen: AVERAGE RISK colorectal cancer screening is due based on information available to this clinical reminder Prior/outside colonoscopy results: ..due 04/19/2030 if benefits outweigh risk per Dr Spicer Date: April 19, 2020 Colonoscopy reminder set 5 years from OCT 18, 2024. /david/ Nato Patricio RN Registered Nurse (RN) Signed: 10/18/2024 11:03 NATO PATRICIO Oct 06, 2024 08:41 AM ADDENDUM: LOCAL TITLE: Addendum STANDARD TITLE: ADDENDUM DATE OF NOTE: OCT 06, 2024@08:41:13 ENTRY DATE: OCT 06, 2024@08:41:14 AUTHOR: NATO PATRICIO EXP COSIGNER: URGENCY: STATUS: COMPLETED PCP--I do not see that this medication was previously prescribed, A1C is 5.0 on 05/17/24, no Dx of DM or CHF. Please advise. Thanks /david/ Nato Patricio RN Registered Nurse (RN) Signed: 10/06/2024 08:44 Receipt Acknowledged By: 10/06/2024 09:55 /es/ RICHARD WATKINS PA-C STAFF PHYSICIAN COMPOSITION MIXER --- Original Document --- 10/05/24 ADMINISTRATIVE NOTE: [facility] contacted by patient via [employer] re: (X) Preferred modality: Face 2 Face (X) Appointment Request: To go over my medications (X) Preferred dates: 10/15/2024 PM Action taken: (X) Message to [facility] for scheduling PATIENT PHONE - PHONE NUMBER [CELLULAR] - Upcoming Appointment: 11/09/2024 09:30 [facility] CERTIFIED ENDOSCOPY TECHNICIAN 1 12/16/2024 13:00 SPR PACT 3 PA WH 07/05/2025 15:30 [facility] OPTOMETRY 2 PM /es/ Dagmar Rowell Lead Radiation Protection Technician Signed: 10/05/2024 09:32 Receipt Acknowledged By: * AWAITING SIGNATURE * PARMENTIER,GABINO S 10/05/2024 ADDENDUM STATUS: COMPLETED Wound Care Physician left voice message with daughter Michell, pt will cb to schedule appt /es/ GABINO LITTLE Advanced Radiation Protection Technician Signed: 10/05/2024 10:17 10/05/2024 ADDENDUM STATUS: COMPLETED Patient returned writers call Patient stated that he is receiving medication EMPAGLIFLOZIN 10mg and does not know why because he does on not have diabetes Patient advise he is prescribed TAMSULOSIN for an enlarged prosate and TOLTERODINE TARTRATE for frequent urination Patient requesting call from RN to explain the reason for these medications , instead of scheduling an appt /es/ GABINO LITTLE Advanced Radiation Protection Technician Signed: 10/05/2024 10:46 Receipt Acknowledged By: * AWAITING SIGNATURE * NATO PATRICIO 10/06/2024 ADDENDUM STATUS: COMPLETED i called spoke to pt is ok to stop empagliflozin is ok to just take tamsulosin may stop tolterodine /es/ RICHARD WATKINS PA-C STAFF PHYSICIAN COMPOSITION MIXER Signed: 10/06/2024 09:51 NATO PATRICIO Oct 05, 2024 10:41 AM ADDENDUM: LOCAL TITLE: Addendum STANDARD TITLE: ADDENDUM DATE OF NOTE: OCT 05, 2024@10:41:42 ENTRY DATE: OCT 05, 2024@10:41:42 AUTHOR: TORRI LITTLE EXP COSIGNER: URGENCY: STATUS: COMPLETED Patient returned writers call Patient stated that he is receiving medication EMPAGLIFLOZIN 10mg and does not know why because he does on not have diabetes Patient advise he is prescribed TAMSULOSIN for an enlarged prosate and TOLTERODINE TARTRATE for frequent urination Patient requesting call from RN to explain the reason for these medications , instead of scheduling an appt /es/ GABINO LITTLE Advanced Radiation Protection Technician Signed: 10/05/2024 10:46 Receipt Acknowledged By: 10/06/2024 11:12 /david/ Nato Patricio RN Registered Nurse (RN) --- Original Document --- 10/05/24 ADMINISTRATIVE NOTE: [facility] contacted by patient via JESSICA re: (X) Preferred modality: Face 2 Face (X) Appointment Request: To go over my medications (X) Preferred dates: 10/15/2024 PM Action taken: (X) Message to [facility] for scheduling PATIENT PHONE - PHONE NUMBER [CELLULAR] - Upcoming Appointment: 11/09/2024 09:30 [facility] CERTIFIED ENDOSCOPY TECHNICIAN 1 12/16/2024 13:00 SPR PACT 3 PA WH 07/05/2025 15:30 [facility] OPTOMETRY 2 PM /es/ Dagmar Rowell Lead Radiation Protection Technician Signed: 10/05/2024 09:32 Receipt Acknowledged By: * AWAITING SIGNATURE * GABINO LITTLE 10/05/2024 ADDENDUM STATUS: COMPLETED Wound Care Physician left voice message with daughter Michell, pt will cb to schedule appt /david/ GABINO LITTLE Advanced Radiation Protection Technician Signed: 10/05/2024 10:17 10/06/2024 ADDENDUM STATUS: COMPLETED PCP--I do not see that this medication was previously prescribed, A1C is 5.0 on 05/17/24, no Dx of DM or CHF. Please advise. Thanks /es/ Nato Patricio, LENORA Registered Nurse (RN) Signed: 10/06/2024 08:44 Receipt Acknowledged By: 10/06/2024 09:55 /david/ RICHARD WATKINS PA-C STAFF PHYSICIAN COMPOSITION MIXER 10/06/2024 ADDENDUM STATUS: COMPLETED i called spoke to pt is ok to stop empagliflozin is ok to just take tamsulosin may stop tolterodine /david/ RICHARD WATKINS PA-C STAFF PHYSICIAN COMPOSITION MIXER Signed: 10/06/2024 09:51 GABINO LITTLE Oct 05, 2024 09:30 AM ADMINISTRATIVE NOT E: LOCAL TITLE: ADMINISTRATIVE NOTE STANDARD TITLE: ADMINISTRATIVE NOTE DATE OF NOTE: OCT 05, 2024@09:30 ENTRY DATE: OCT 05, 2024@09:30:15 AUTHOR: DAGMAR ROWELL EXP COSIGNER: URGENCY: STATUS: COMPLETED ADMINISTRATIVE NOTE Has ADDENDA [facility] contacted by patient via JESSICA re: (X) Preferred modality: Face 2 Face (X) Appointment Request: To go over my medications (X) Preferred dates: 10/15/2024 PM Action taken: (X) Message to [facility] for scheduling PATIENT PHONE - PHONE NUMBER [CELLULAR] - Upcoming Appointment: 11/09/2024 09:30 [facility] CERTIFIED ENDOSCOPY TECHNICIAN 1 12/16/2024 13:00 SPR PACT 3 PA WH 07/05/2025 15:30 NHM OPTOMETRY 2 PM /david/ Dagmar Rowell Lead Radiation Protection Technician Signed: 10/05/2024 09:32 Receipt Acknowledged By: 10/08/2024 14:15 /david/ GABINO LITTLE Advanced Radiation Protection Technician 10/05/2024 ADDENDUM STATUS: COMPLETED Wound Care Physician left voice message with daughter Michell, pt will cb to schedule appt /david/ GABINO LITTLE Advanced Radiation Protection Technician Signed: 10/05/2024 10:17 10/05/2024 ADDENDUM STATUS: COMPLETED Patient returned writers call Patient stated that he is receiving medication EMPAGLIFLOZIN 10mg and does not know why because he does on not have diabetes Patient advise he is prescribed TAMSULOSIN for an enlarged prosate and TOLTERODINE TARTRATE for frequent urination Patient requesting call from RN to explain the reason for these medications , instead of scheduling an appt /es/ GABINO LITTLE Advanced Radiation Protection Technician Signed: 10/05/2024 10:46 Receipt Acknowledged By: 10/06/2024 11:12 /david/ Nato Patricio RN Registered Nurse (RN) 10/06/2024 ADDENDUM STATUS: COMPLETED PCP--I do not see that this medication was previously prescribed, A1C is 5.0 on 05/17/24, no Dx of DM or CHF. Please advise. Thanks /david/ Nato Patricio RN Registered Nurse (RN) Signed: 10/06/2024 08:44 Receipt Acknowledged By: 10/06/2024 09:55 /david/ RICHARD WATKINS PA-C STAFF PHYSICIAN COMPOSITION MIXER 10/06/2024 ADDENDUM STATUS: COMPLETED i called spoke to pt is ok to stop empagliflozin is ok to just take tamsulosin may stop tolterodine /david/ RICHARD WATKINS PA-C STAFF PHYSICIAN COMPOSITION MIXER Signed: 10/06/2024 09:51 DAGMAR ROWELL Sep 17, 2024 08:25 AM ACCOUNTING OF DISC LOSURES NOTE: LOCAL TITLE: STATE PRESCRIPTION DRUG MONITORING PROGRAM STANDARD TITLE: ACCOUNTING OF DISCLOSURES NOTE DATE OF NOTE: SEP 17, 2024@08:25:22 ENTRY DATE: SEP 17, 2024@08:25:22 AUTHOR: NATO PATRICIO EXP COSIGNER: RICHARD WATKINS URGENCY: STATUS: COMPLETED This PDMP query was submitted by Nato Patricio on behalf of Richard Watkins. The clinical justification for this PDMP query is to review controlled substances prescribed outside of the [facility], and any additional information that may become available, as an important component of standard clinical care, and in accordance with [facility] policy. Patient information was shared with the PDMP [place]. The VA prescriber, for which I am a delegate, will be alerted of these PDMP findings through co-signature of this progress note. No prescription(s) for controlled substances outside the [facility] were found in the last 90 days. /jos Patricio RN Registered Nurse (RN) Signed: 09/17/2024 08:25 /david/ RICHARD WATKINS PA-C STAFF PHYSICIAN COMPOSITION MIXER Cosigned: 09/17/2024 08:32 NATO PATRICIO Aug 04, 2024 10:14 AM PREVENTIVE MEDICIN E NURSING NOTE: LOCAL TITLE: CLINICAL REMINDERS/NURSING STANDARD TITLE: PREVENTIVE MEDICINE NURSING NOTE DATE OF NOTE: AUG 04, 2024@10:14 ENTRY DATE: AUG 04, 2024@10:14:58 AUTHOR: DANAMAGDALENA F EXP COSIGNER: URGENCY: STATUS: COMPLETED RSV Immunization: Defer due to a PRECAUTION Reason: URI and stomach viral /es/ MAGDALENA CORTEZ LPN LICENSED PRACTICAL NURSE Signed: 08/04/2024 10:15 MAGDALENA CORTEZ [place] Aug 04, 2024 10:00 AM PHYSICIAN ASSISTAN T NOTE: LOCAL TITLE: PA NOTE STANDARD TITLE: PHYSICIAN COMPOSITION MIXER NOTE DATE OF NOTE: AUG 04, 2024@10:00 ENTRY DATE: AUG 04, 2024@10:00:44 AUTHOR: RICHARD WATKINS EXP COSIGNER: URGENCY: STATUS: COMPLETED S - c/o abd few days ago; went away but still has some burning epigastrum and migrates proximally to chest and throat +/- bolus sensation when swallowing pain was/is not sharp and not dull not referred elsewhere appetite unaffected and no wt loss no n/v/d no hematemesis some functional constipation no hematochezia or melena on PPI for GERD but, no so effective anymore regarding dyspepsia O - coop A&Ox3 NAD W-N/H/D LUNGS: resp full reg unlabored; CTA b/l COR: RRR, no M ABD: no diatention no guard or rigidity mild TTP epigastrum no rebound or other peritoneal signs no mass/megaly A/P - 1) Not Acute ABD 2) Not Surg ABD 3) GERD That is Worsening 4) I Doubt a Visceral Disease 5) I Doubt Ischemia, Inflammation or, Peritonitis - cont PPI BID - add Sucralfate Tab, Once Day - avoid offending foods (if any) - CON: Diagnost EGD RTC prn this issue Falls & Incontinence Screen: Falls Screen: 4. No falls within the past year. Incontinence Screen No incontinence. Medication Reconciliation: Outpatient: Has the patient been taking medications as documented in the EMLR? YES: The patient has been taking medications as documented in the EMLR. Essential Medication List for Review used to complete this medication reconciliation. INCLUDED IN THIS LIST: Alphabetical list of active outpatient prescriptions dispensed from this [place] (local) and dispensed from another VA or [facility]D facility (remote) as well as inpatient orders (local, pending and active), local clinic medications, locally documented non-VA medications, and local prescriptions that have or been discontinued in the past 90 days. - All changes in medications, including all non-VA/Herbal/OTC medications were entered into [facility]. Changes: nt - If there were any medications the patient should no longer take, they were discontinued. - The patient/caregiver was instructed to update this list, discard old lists, and take this list to the next appointment, whether with a VA or non-VA provider. /david/ RICHARD WATKINS PA-C STAFF PHYSICIAN COMPOSITION MIXER Signed: 08/04/2024 10:28 RICHARD WATKINS
--- OUTSIDE RECORDS SUMMARY | 2024-10-20 08:24 | XMS_ITS | Continuity of Care Document ---
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 PLASMA 165 ng/mL 20 - 300 05/17 Specimen Type: SERUM No comment entered. Ordering Provider: RICHARD OTOOLE Report Released Date/Time: May 11, 2024 02:17 PM Reporting Lab: [address] [address] Performing Lab: [facility] [address] [address] [place] TSH THYROTROPIN [UNITS/VOLU ME] IN SERUM OR PLASMA 2.38 u[IU]/ mL 0.35 - 5.00 05/17 Specimen Type: SERUM No comment entered. Ordering Provider: RICHARD OTOOLE Report Released Date/Time: May 11, 2024 02:17 PM Reporting Lab: [address] [address] Performing Lab: [address] [address] [place] LIPID PANEL FASTING CHOLESTEROL [MASS/VOLUM E] IN SERUM OR PLASMA 197 mg/dL 05/17 Specimen Type: SERUM No comment entered. Ordering Provider: RICHARD OTOOLE Report Released Date/Time: May 11, 2024 02:17 PM Reporting Lab: [address] [address] Performing Lab: [address] [address] [place] LIPID PANEL FASTING TRIGLYCERID E [MASS/VOLUM E] IN SERUM OR PLASMA 226 mg/dL 0 - 150 05/17 H Specimen Type: SERUM No comment entered. Ordering Provider: RICHARD OTOOLE Report Released Date/Time: May 11, 2024 02:17 PM Reporting Lab: [address] [address] Performing Lab: [address] [address] [place] LIPID PANEL FASTING CHOLESTEROL IN LDL [MASS/VOLUM E] IN SERUM OR PLASMA BY CALCULATION 89 mg/dL 0 - 129 05/17 Specimen Type: SERUM No comment entered. Ordering Provider: RICHARD OTOOLE Report Released Date/Time: May 11, 2024 02:17 PM Reporting Lab: [address] [address] Performing Lab: [address] [address] [place] LIPID PANEL FASTING CHOLESTEROL .TOTAL/CHOL ESTEROL IN HDL [MASS RATIO] IN SERUM OR PLASMA 3.1 05/17 Specimen Type: SERUM No comment entered. Ordering Provider: RICHARD OTOOLE Report Released Date/Time: May 11, 2024 02:17 PM Reporting Lab: [facility] [address] [facility] [address] Performing Lab: [address] [address] [place] LIPID PANEL FASTING CHOLESTEROL IN HDL [MASS/VOLUM E] IN SERUM OR PLASMA 63 mg/dL 40 - 60 05/17 H Specimen Type: SERUM No comment entered. Ordering Provider: RICHARD OTOOLE Report Released Date/Time: May 11, 2024 02:17 PM Reporting Lab: [address] [address] Performing Lab: [address] [address] [place] LIVER FUNCTION PROTEIN [MASS/VOLUM E] IN SERUM OR PLASMA 7.7 g/dL 6.0 - 8.3 05/17 Specimen Type: SERUM No comment entered. Ordering Provider: RICHARD OTOOLE Report Released Date/Time: May 11, 2024 02:17 PM Reporting Lab: [address] [address] Performing Lab: [address] [address] [place] LIVER FUNCTION ALBUMIN [MASS/VOLUM E] IN SERUM OR PLASMA 4.1 g/dL 3.5 - 5.0 05/17 Specimen Type: SERUM No comment entered. Ordering Provider: RICHARD OTOOLE Report Released Date/Time: May 11, 2024 02:17 PM Reporting Lab: [address] [address] Performing Lab: [address] [address] [place]IVER FUNCTION ALKALINE PHOSPHATASE [ENZYMATIC ACTIVITY/VO LUME] IN SERUM OR PLASMA 72 U/L 40 - 150 05/17 Specimen Type: SERUM No comment entered. Ordering Provider: RICHARD OTOOLE Report Released Date/Time: May 11, 2024 02:17 PM Reporting Lab: [facility]TR[facility] [address] [facility] [address] Performing Lab: [facility]ITALRATHENS-[facility]IMESTONE HOSPITALN [facility] [address] [facility] [address] [place] LIVER FUNCTION ASPARTATE AMINOTRANSF ERASE [ENZYMATIC ACTIVITY/VO LUME] IN SERUM OR PLASMA 26 U/L 5 - 34 05/17 Specimen Type: SERUM No comment entered. Ordering Provider: RICHARD OTOOLE Report Released Date/Time: May 11, 2024 02:17 PM Reporting Lab: [facility] [address] [address] Performing Lab: [facility]ITALRATHENS-[facility]IMEST[facility] HOSPITALN [address] [address] [place] LIVER FUNCTION ALANINE AMINOTRANSF ERASE [ENZYMATIC ACTIVITY/VO LUME] IN SERUM OR PLASMA 17 U/L 05/17 Specimen Type: SERUM No comment entered. Ordering Provider: RICHARD OTOOLE Report Released Date/Time: May 11, 2024 02:17 PM Reporting Lab: [facility] [address] [address] Performing Lab: [facility]ITALRATHENS-[facility]ST[facility] HOSPITALN [address] [address] [place] LIVER FUNCTION BILIRUBIN.T OTAL [MASS/VOLUM E] IN SERUM OR PLASMA 0.5 mg/dL 0.2 - 1.2 05/17 Specimen Type: SERUM No comment entered. Ordering Provider: RICHARD OTOOLE Report Released Date/Time: May 11, 2024 02:17 PM Reporting Lab: [facility]ITALRATHENS-[facility]IMEST[facility]OSPITALN [address] [address] Performing Lab: [address] [address] [place] BASIC METABOLIC PANEL (fasting) UREA NITROGEN [MASS/VOLUM E] IN SERUM OR PLASMA 13 mg/dL 7 - 25 05/17 Specimen Type: SERUM No comment entered. Ordering Provider: RICHARD OTOOLE Report Released Date/Time: May 11, 2024 02:17 PM Reporting Lab: [facility]ITALRST[facility] VINCENT[facility] CHILTONTRN [facility]ITALUSETS [facility] [address] [facility] [address] Performing Lab: [facility]ITALRATHENS-LIMESTONE HOSPITALN [facility]ITALUSEMEDISYS [facility] [address] [facility] [address] [place] BASIC METABOLIC PANEL (fasting) GLUCOSE [MASS/VOLUM E] IN SERUM OR PLASMA 101 mg/dL 65 - 100 05/17 H Specimen Type: SERUM No comment entered. Ordering Provider: RICHARD OTOOLE Report Released Date/Time: May 11, 2024 02:17 PM Reporting Lab: [facility] [address] [facility] [address] Performing Lab: [facility]ITALRATHENS-LIMESTONE HOSPITALN [facility]PITALUSEMEDISYS [facility] [address] [facility] [address] [place] BASIC METABOLIC PANEL (fasting) SODIUM [MOLES/VOLU ME] IN SERUM OR PLASMA 140 mmol/L 135 - 145 05/17 Specimen Type: SERUM No comment entered. Ordering Provider: RICHARD OTOOLE Report Released Date/Time: May 11, 2024 02:17 PM Reporting Lab: [facility]PITALUSEMEDISYS [facility] [address] [facility] [address] Performing Lab: [facility]ITALRATHENS-LIMESTONE HOSPITALN [facility]ITALUSEMEDIS[facility] [address] [facility] [address] [place] BASIC METABOLIC PANEL (fasting) POTASSIUM [MOLES/VOLU ME] IN SERUM OR PLASMA 4.5 mmol/L 3.5 - 5.0 05/17 Specimen Type: SERUM No comment entered. Ordering Provider: RICHARD OTOOLE Report Released Date/Time: May 11, 2024 02:17 PM Reporting Lab: [facility]ITALRST[facility] VINCENT'[facility] CHILTONTRN [facility]OSPITALUSEMEDISYS [facility] [address] [facility] [address] Performing Lab: [facility]ITALRATHENS-LIMESTONE HOSPITALN [facility]PITALUSEMEDIS[facility] [address] [facility] [address] [place] BASIC METABOLIC PANEL (fasting) CHLORIDE [MOLES/VOLU ME] IN SERUM OR PLASMA 104 mmol/L 100 - 110 05/17 Specimen Type: SERUM No comment entered. Ordering Provider: RICHARD OTOOLE Report Released Date/Time: May 11, 2024 02:17 PM Reporting Lab: [facility]OSPITALRL [facility] [address] [facility] [address] Performing Lab: [facility] [address] [facility] [address] [place] BASIC METABOLIC PANEL (fasting) CARBON DIOXIDE, TOTAL [MOLES/VOLU ME] IN SERUM OR PLASMA 24 meq/L 20 - 30 05/17 Specimen Type: SERUM No comment entered. Ordering Provider: RICHARD OTOOLE Report Released Date/Time: May 11, 2024 02:17 PM Reporting Lab: [facility] [address] [facility] [address] Performing Lab: [facility] [address] [facility] [address] [place] BASIC METABOLIC PANEL (fasting) CREATININE [MASS/VOLUM E] IN SERUM OR PLASMA 0.92 mg/dL 0.50 - 1.40 05/17 Specimen Type: SERUM No comment entered. Ordering Provider: RICHARD OTOOLE Report Released Date/Time: May 11, 2024 02:17 PM Reporting Lab: [facility] [address] [facility] [address] Performing Lab: [facility]N [facility]OSPITALUSEMEDISYS [facility] [address] [facility] [address] [place] BASIC METABOLIC PANEL (fasting) GLOMERULAR FILTRATION RATE/1.73 SQ M.PREDICTED [VOLUME RATE/AREA] IN SERUM, PLASMA OR BLOOD BY CREATININE- BASED FORMULA (CKD-EPI 2020) 86 mL/min 60 05/17 Specimen Type: SERUM No comment entered. Ordering Provider: RICHARD OTOOLE Report Released Date/Time: May 11, 2024 02:17 PM Reporting Lab: [facility]ITALRATHENS-LIMESTONE HOSPITALN [facility] [address] [facility] [address] Performing Lab: [facility]N [facility] HOSPITALUSE[address] [address] [place] VITAMIN B12 COBALAMIN (VITAMIN B12) [MASS/VOLUM E] IN SERUM OR PLASMA 761 pg/mL 200 - 900 05/17 Specimen Type: SERUM No comment entered. Ordering Provider: RICHARD OTOOLE Report Released Date/Time: May 11, 2024 02:17 PM Reporting Lab: [facility] [address] [facility] [address] Performing Lab: [facility] [address] [facility] [address] [employer] VITAMIN D (25-OH) 25-HYDROXYV ITAMIN D3 [MASS/VOLUM E] IN SERUM OR PLASMA 36 ng/mL 20 - 50 05/17 Specimen Type: SERUM No comment entered. Ordering Provider: RICHARD OTOOLE Report Released Date/Time: May 11, 2024 02:17 PM Reporting Lab: [facility] [address] [facility] [address] Performing Lab: [address] [address] [employer] URIC ACID URATE [MASS/VOLUM E] IN SERUM OR PLASMA 4.1 mg/dL 3.5 - 7.2 05/17 Specimen Type: SERUM No comment entered. Ordering Provider: RICHARD OTOOLE Report Released Date/Time: May 11, 2024 02:17 PM Reporting Lab: [address] [address] Performing Lab: [address] [address] [employer] HEMOGLOBI N A1C PANEL HEMOGLOBIN A1C/HEMOGLO BIN.TOTAL IN BLOOD BY HPLC 5.0 4.0 - 5.6 05/17 Specimen Type: BLOOD Comment: Values obtained from A1C measurement s can vary. For atypical A1C assays, a reported value of 7.0 could actually be between 6.72 and 7.28 if measured by a reference method. A reported value of 9.0 could actually be between 8.73 and 9.27. Ref: http://www. 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 Vital Sign Value Date Comments Source SYSTOLIC BLOOD PRESSURE 148 08/04/2024 10:17:06 [place] DIASTOLIC BLOOD PRESSURE 73 08/04/2024 10:17:06 [place] PULSE OXIMETRY 97 08/04/2024 10:17:06 [place] WEIGHT 170 08/04/2024 10:17:06 [place] BMI 27 kg/m2 08/04/2024 10:17:06 [place] TEMPERATURE 97 08/04/2024 10:17:06 [place] PULSE 79 08/04/2024 10:17:06 [place] RESPIRATION 18 08/04/2024 10:17:06 [facility] SYSTOLIC BLOOD PRESSURE 140 05/19/2024 13:26:31 [place] DIASTOLIC BLOOD PRESSURE 83 05/19/2024 13:26:31 [place] PULSE OXIMETRY 97 05/19/2024 13:26:31 [place] 173 05/19/2024 13:26:31 [place] BMI 27 kg/m2 05/19/2024 13:26:31 [place] PULSE 75 05/19/2024 13:26:31 [place] RESPIRATION 18 05/19/2024 13:26:31 [place] Encounters Combined list of: 1) Encounters from Department of Veterans Affairs facilities going backup to the last 18 months, not all [place] inpatient encounters are included; 2) Encounters from the Department of [facility] facilities going backup to 280 months. Location Location Details Encounter Type Encounter Number Reason For Visit Attending Provider ADM Date DC Date Status Disposition Source [facility] En[facility] [id number] 05/05 [facility] Encounter [id number] 05/07 [facility] [id number] 05/08 [facility] Outpatient Encounter [id number] 05/20 [facility] [place] OFFICE O/P EST LOW 20-29 MIN [id number] Diagnos is: ICD-10- CM 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 JUAN DHILLON OY F 05/20 [place] [facility] EYE EXAM&TX ESTAB PT 1/>VST [id number] Diagnos is: ICD-10- CM Z96.1 Presenc e of intraoc ular lens JONATHONFRANTZ 05/22 [facility] CMPTR OPHTH IMG OPTIC NERVE [id number] Diagnos is: ICD-10- CM H40.013 Open angle with borderl ine finding s, low risk, bilater al JONATHONRI JOE 05/22 [facility] FIT SPECTACLES MONOFOCAL [id number] Diagnos is: ICD-10- CM Z46.0 Encount er for fit/adj st of spectac les and contact lenses JONATHONFRANTZ 05/23 [facility] Outpatient Encounter [id number] 05/26 [facility]/P EST LOW 20-29 MIN [id number] Diagnos is: ICD-10- CM 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 JUAN DHILLON OY F 05/28 [place] [facility] Outpatient Encounter [id number] 07/18 [facility] Outpatient Encounter [id number] 08/11 [facility] Outpatient Encounter [id number] 08/14 [facility] [place] OFF[place] O/P EST LOW 20 MIN [id number] Diagnos is: ICD-10- CM F06.33 Mood disorde r due to known physiol cond w manic feature lissa JUAN DHILLON OY F 08/27 [place] [facility] Outpatient Encounter [id number] 08/27 [facility] [place] [id number] Diagnos is: ICD-10- CM K08.199 Complet e loss of teeth due to oth cause, unspeci fied class RAGHAVENDR A,SANGEETH A 09/01 [facility] O/P EST MOD 30 MIN [id number] Diagnos is: ICD-10- CM 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 TATI OTOOLE 09/28 [place] [facility] Outpatient Encounter [id number] 11/02 [facility] LD OFFICE O/P EST LOW 20 MIN [id number] Diagnos is: ICD-10- CM F06.33 Mood disorde r due to known physiol cond w manic feature lissa JUAN DHILLON OPetey F 11/25 [place] [facility] Outpatient Encounter [id number] 12/29 [facility] [place] OFFICE O/P EST LOW 20 MIN [id number] Diagnos is: ICD-10- CM 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 JUAN Antoine OY F 05/26 [place] [facility] [place] 1 [id number] Diagnos is: ICD-10- CM 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 FRANTZ HOLT 06/22 [facility] FIT SPECTACLES MONOFOCAL [id number] Diagnos is: ICD-10- CM Z46.0 Encount er for fit/adj st of spectac les and contact lenses FRANTZ HOLT 06/22 [facility] EDUCATION NOC INDIVID [id number] Diagnos is: ICD-10- CM G47.[address] AM,VITALY E P 06/28 [place] [facility] Outpatient Encounter [id number] 1.07/05 [facility] COLLJ & INTERPJ DATA EA 30 D [id number] Diagnos is: ICD-10- CM G47.30 Sleep apnea, unspeci fied ANNA DUDLEY A 07/05 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 JUAN DHILLON OY F 07/07 [place] [facility] Outpatient Encounter [id number] 07/12 [facility] COLLJ & INTERPJ DATA EA 30 D [id number] Diagnos is: ICD-10- CM G47.30 Sleep apnea, unspeci fied ST AMANT,VITALY E P 07/13 [facility] Outpatient Encounter [id number] 07/30 [facility] Outpatient Encounter [id number] 08/02 [facility] OFFICE O/P EST MOD 30 MIN [id number] Diagnos is: ICD-10- CM K21.00 Gastro- esophag eal reflux dis with esophag itis, without bleed OTOOLETATI 08/04 [facility] [place] [facility] Encounter [id number] 08/10 [facility] Encounter [id number] 08/10 [facility] Out[facility] Encounter [id number] 08/16 [facility] Encounter [id number] 08/18 [facility] PH1 ASSMT&MGMT NQHP 11-20 [id number] Diagnos is: ICD-10- CM G47.30 Sleep apnea, unspeci fied JARMOLOWIC Z,FRANC 08/19 [facility] En[facility] [id number] 08/20 [facility] Out[facility] Encounter [id number] 08/21 [facility] [place] [id number] Diagnos is: ICD-10- CM K08.199 Complet e loss of teeth due to oth cause, unspeci fied class RAGHAVENDR A,SANGEETH A 08/23 [place] [facility] [place] Outpatient Encounter [id number] 09/16 [facility] [place] [facility] [place] [facility] Outpatient Encounter [id number] 09/23 [facility] [place] [place] Outpatient Encounter [id number] 10/18 [facility] [place] [facility] Social History Combined list of available smoking, tobacco, and other social history from [facility] Defense and [facility] facilities. Social History Type Response Date Comment Source Tobacco smoking status [facility]-TOBACCO NEVER USED 05/19/2024 [place] History of tobacco use [facility]-TOBACCO NEVER USED 05/28/2023 [place] History of tobacco use NM-TOBACCO FORMER USER 04/24/2022 [place] History of tobacco use NM-TOBACCO QUIT 5 TO < 15 YRS 03/23/2021 [facility] [place] [facility] History of tobacco use [facility]-TOBACCO FORMER USER 03/23/2021 [place] History of tobacco use NM-TOBACCO NEVER USED 04/04/2020 [place] History of tobacco use NM-TOBACCO QUIT 15 YRS OR MORE 04/14/2019 [place] History of tobacco use QUIT TOBACCO USE 1-7 YEARS AGO 02/27/2018 [place] History of tobacco use QUIT TOBACCO USE 1-7 YEARS AGO 09/22/2017 [place] History of tobacco use QUIT TOBACCO USE > 7 YEARS AGO 10/09/2016 [place] History of tobacco use QUIT TOBACCO USE 1-7 YEARS AGO 01/15/2016 [place] History of tobacco use QUIT TOBACCO USE IN PAST YEAR 06/20/2015 [place] History of tobacco use CURRENT SMOKER 07/22/2014 advise stop [place] History of tobacco use V1-PT THINKING ABOUT QUIT TOBACCO USE 08/10/2013 [place] History of tobacco use CURRENT SMOKER 02/22/2013 Pt. stated he smokes half a pack a day. [place] History of tobacco use V1-PT DECLINES TOBACCO CESSATION MEDS 08/04/2012 [place] History of tobacco use CURRENT SMOKER 02/21/2012 Pt. stated he is down to half a pack a day! [place] History of tobacco use V1-PT DECLINES TOBACCO CESSATION MEDS 08/23/2011 [place] History of tobacco use CURRENT SMOKER 02/04/2011 half a pack a day [place] History of tobacco use V1-PT DECLINES TOBACCO CESSATION MEDS 06/22/2010 [place] History of tobacco use QUIT TOBACCO USE IN PAST YEAR 10/02/2009 [place] History of tobacco use CURRENT SMOKER 12/23/2008 Pt. smokes les then a pack a day!! [place] History of tobacco use V1-PT DECLINES TOBACCO CESSATION MEDS 04/11/2008 [place] History of tobacco use CURRENT SMOKER 05/22/2007 patient currently smokes 1 pk cigarettes daily. [place] History of tobacco use V1-PT THINKING ABOUT QUIT TOBACCO USE 03/26/2007 [place] History of tobacco use V1-PT THINKING ABOUT QUIT TOBACCO USE 08/21/2006 [place] History of tobacco use CURRENT SMOKER 05/07/2006 pt. a smoker for 45 years. [place] History of tobacco use CURRENT SMOKER 07/31/2004 [id number] [place] History of tobacco use CURRENT SMOKER 03/17/2003 Less than a pack a day [place] Plan of Care List of future care activities from [facility] facilities. Additional future care activities may be listed in the Assessment and Plan section. Date/Time Care Activity Care Activity Detail Facili ty 11/09/2024 AMBULATORY - PSYCHIATRY AMBULATORY - PSYC [facility]
--- OUTSIDE RECORDS SUMMARY | 2024-10-20 08:24 | XMS_ITS | Encounter Summary ---
Author Organization [facility] Address [address] [place] [address] Care Team Providers Care Concrete Handler Name Role Phone Ernie Ortiz MD Primary Care Provider [phone] Reason for Visit * Reason Onset Date Comments TEST RESULTS 03/06/2016 Encounter Details Date Type Department Care Team Description 03/06/2016 Telephone Adult Medicine - [place] [address] [place] [address] Ernie Ortiz MD [address] [place] [address] TEST RESULTS Social History Tobacco Use Types Packs/Day Years Used Date Smoking Tobacco: Former Cigarettes 1 45 Q uit: 07/25/2013 Comments:quit 3 months ago Alcohol Use Standard Drinks/Week Comments Yes 0 (1 standard drink = 0.6 oz pur e alcohol) occ Sex Assigned at Date Recorded Not on file documented as of this encounter Miscellaneous Notes * Telephone Encounter - Fallon Cowan - 03/06/2016 9:08 AM EDT Pt is calling. [facility] States that the hosp faxed results to [phone]. 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 Pt would also like to know if MRI has been sent to Dr. Musa. Please advise. documented in this encounter Plan of Treatment Not on file documented as of this encounter Visit Diagnoses Not on filedocumented in this encounter Care Teams Concrete Handler Relationship Specialty Start Date End Date Ernie Ortiz MD [address] [place] [address] PCP - General Internal Medicine 04/12/14 documented as of this encounter
--- OUTSIDE RECORDS SUMMARY | 2024-10-20 08:24 | XMS_ITS | Encounter Summary ---
Author Organization [facility] Address [address] [place] [address] Care Team Providers Care Fleece Tier Name Role Phone Holly Morgan DO Primary Care Pro vider Unavailable Ernie Ortiz MD Primary Care Provider [phone] Reason for Visit * Reason Onset Date Comments Follow-up Appt Unavailable 03/15/2014 Encounter Details Date Type Department Care Team Description 03/15/2014 Telephone Adult Medicine - [address] [address] Holly Morgan DO Follow-up Appt Unavailable Social History Tobacco Use Types Packs/Day Years Used Date Smoking Tobacco: Former Comments:quit 3 months ago Alcohol Use Standard Drinks/Week Comments Not Asked 0 (1 standard drink = 0.6 oz pur e alcohol) Sex Assigned at Date Recorded Not on file documented as of this encounter Miscellaneous Notes * Telephone Encounter - Sahil Logan - 03/15/2014 12:46 PM EDT Patient called. Would like to be seen lise. He would like to get an assessment on his spine, stating he is unable to work * Telephone Encounter - Malaika Rhodes L.P.N. - 03/15/2014 11:[address] book w/ first avail physical Opening.No guarantee that paperwork will be filled out. ? Should go back to his PCP?? * Telephone Encounter - Flaquita Rogers - 03/15/2014 11:13 AM EDT Follow up appointment not available. Please call patient to book-no open NON PUBLIC SLOTS. Appointment needed PT [facility] [place], he needs a pe too fill out some disability paperwork-pt states he doesn't care who he sees just needs it doneI documented in this encounter Plan of Treatment Not on file documented as of this encounter Visit Diagnoses Not on filedocumented in this encounter Care Teams Fleece Tier Relationship Specialty Start Date End Date Holly Morgan DO PCP - General Internal Medicine 12/09/13 04/11/14 Ernie Ortiz MD [address] [place] [id number] PCP - General Internal Medicine 04/12/14 documented as of this encounter
--- OUTSIDE RECORDS SUMMARY | 2024-10-20 08:24 | XMS_ITS | Encounter Summary ---
Author Organization [facility] Address [address] [place] [address] Care Team Providers Care Systems Eng Name Role Phone Holly Morgan DO Primary Care Pro vider Unavailable Chapis Thomson MD Primary Care Provider Unavaila ble Holly Morgan DO Primary Care Pro vider Unavailable Ernie Ortiz MD Primary Care Provider [phone] Encounter Details Date Type Department Care Team Description 12/15/2012 Release of Information Medical Records [address] [place] [id number] Abstract, Provider Social History Tobacco Use Types [...] on filedocumented in this encounter Care Teams Systems Eng Relationship Specialty Start Date End Date Holly Morgan DO PCP - General Internal Medicine 11/30/12 01/27/13 Chapis Thomson MD PCP - General Internal Medicine 01/28/13 12/08/13 Holly Morgan DO PCP - General Internal Medicine 12/09/13 04/11/14 Ernie Ortiz MD [address] [place] [id number] PCP - General Internal Medicine 04/12/14 documented as of this encounter
--- OUTSIDE RECORDS SUMMARY | 2024-10-20 08:24 | XMS_ITS | Encounter Summary ---
Author Organization [facility] Address [address] [place] [address] Care Team Providers Care Monkey Trainer Name Role Phone Ernie Ortiz MD Primary Care Provider [phone] Encounter Details Date Type Department Care Team Description 11/30/2014 Visualizer Report Medical Records [address] [place] [address] Augustus Johnson MD Social History Tobacco Use Types Packs/Day Years [...] on filedocumented in this encounter Care Teams Monkey Trainer Relationship Specialty Start Date End Date Ernie Ortiz MD [address] [place], [place] [id number] PCP - General Internal Medicine 04/12/14 documented as of this encounter
--- OUTSIDE RECORDS SUMMARY | 2024-10-20 08:24 | XMS_ITS | Encounter Summary ---
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
[2024-10-20 11:55] LABS: Iron 89 mcg/dL (45-160); Percent Iron Saturation 33 % (15-50); Total Iron Binding Capacity 267 mcg/dL (228-428); Unsaturated Iron Binding 178 ug/dL
[2024-10-20 12:19] LABS: Folate 12.5 ng/mL (> or = 4.0); Vitamin B12 862 pg/mL (200-900)
[2024-10-20 12:20] LABS: Ferritin 130 ng/mL (20-250)
== END 2024-10-20 08:15 | disposition home or self-care (01) ==
LOC: HO.WFDLDS 08:14
PROVIDERS: Visit Provider Nurse Practitioner Family
DX: D64.9 Anemia, unspecified (principal)
CPT/HCPCS: 36415; 82607; 82728; 82746; 83540

== ENCOUNTER 2024-10-29 13:43 | Outpatient (AMB) | payer MEDICARE, MEDICAID, SELFPAY ==
--- NOTE | 2024-10-29 13:37 | A.OFFPC_ITS ---
Intake Visit Reasons: Telehealth 2-3 wks labs review Intake Note: patient here for 2-3 weeks follow up for lab review. 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 Allergies latex Allergy (Intermediate, Verified 10/29/24 13:37) Rash Penicillins Allergy (Intermediate, Verified 10/29/24 13:37) Swelling Tobacco use date assessed: 10/29/24 Fall risk assessment: No Falls in past year Last assessed Fall Risk: 10/29/24 Dental Screening Dental Screen Date: 10/29/24 Did you have a dental visit in the last 12 months?: Yes Did you have a dental problem in the last 6 months where you did not have access to dental care?: No Was dental information given to patient?: Patient has dentist HPI HPI Comments History of Present Illness Details 79-year-old male presents for a [facility] visit for review of recent lab results. He admits to taking his medications as prescribed without adverse reactions. He offers no complaints and denies acute symptoms at this time. [facility] Medical History (Updated 10/07/24 @ 15:08 by Denver Mckinley CNP) Brain aneurysm Depression Anxiety Imbalance Neuropathy Enlarged prostate Acid reflux Back disorder High cholesterol Sinusitis Surgical History (Updated 10/06/24 @ 14:10 by Denver Mckinley CNP) Status post ORIF of fracture of ankle History of repair of left rotator cuff History of repair of right rotator cuff History of laminectomy Family History (Updated 10/06/24 @ 12:55 by Erika Chicas MA) Paternal Grandfather Alcohol abuse Maternal Grandfather Suicide Social History Housing: House Patient Tobacco Use Status: Former Tobacco user Cigarette Packs Per Day: 0.5 Cigarettes Per Day: 10 Years Smoked: 15 e-Cigarette/Vaping Use: Never Used Second Hand Smoke Exposure: No service: No Current occupational status: disabled Current occupational exposures/hazards: No Cognitive needs: Yes (cane) Hearing needs: No Vision needs: Yes Questionnaire Thrive Questionnaire Date Thrive assessed: 10/05/24 I am a: Patient What is your living situation today?: I have a steady place to live Within the past 12 months, did the food you bought not last and you didn't have the money to get more?: Never true Within the past 12 months, did you worry whether your food would run out before you got money to buy more?: Never true Do you have trouble paying for medicines?: No Do you have trouble getting transportation to medical appointments?: No Do you have trouble paying your heating and electricity bill?: No Do you have trouble taking care of your child, family member or friend?: No Do you have trouble with day-to-day activities such as bathing, preparing meals, shopping, managing finances, etc.?: Yes Are you currently unemployed and looking for a job?: No Are you interested in more education?: No Please select the resources that you would like help with: None Currently or been in a relationship where the following occur: No concerns reported THRIVE Score: 0 TUAN-7 AMB Questionnaire TUAN-7 Date TUAN - 7 assessed: 10/06/24 Source: Developed by Drs. Orlando Bowen, Dorys Monae, Luan Bonilla and colleagues, with an educational josé miguel from [employer]. Review of Systems Const Details: Denies chills, Denies fatigue, Denies fever(s), Denies headache(s) and Denies weakness Cardiac Denies chest pain, Denies claudication, Denies leg edema, Denies lightheadedness, Denies palpitations, Denies dyspnea, Denies dyspnea on exertion, Denies orthopnea and Denies other (Loss of consciousness) Resp Denies cough, Denies excessive phlegm production, Denies dyspnea, Denies dyspnea on exertion, Denies snoring and Denies wheezing Physical exam (Primary Care) Tobacco/Smoking Status: Tobacco use Status Tobacco use date assessed 10/29/24 10/29/24 13:39 Patient Tobacco Use Status Former Tobacco user 10/29/24 13:39 e-Cigarette/Vaping Use Never Used 10/29/24 13:39 Thrive Assessment: Date of Thrive Assessment Date Thrive assessed 10/05/24 10/29/24 13:39 Currently or been in a relationship where the following occur: No concerns reported Const Other: Patient is alert and oriented x3. Telehealth Telehealth Telehealth Platform: Telephone Location of provider rendering services: practice address Location of patient: address on file Patient Identification confirmed using: Name, : Yes Telehealth method: voice only Patient verbally consented to treatment: Yes Patient verbally consented to billing insurance company: Yes Patient informed of any privacy concerns related to visit: Yes Coding Level of Care Code Tele Est Pt Level 3 (09494) Diagnoses High cholesterol E78.00 Normocytic anemia D64.9 Time Spent (min) 10 Assessment & Plan Assessment & Plan (1) High cholesterol: Code(s): E78.00 - Pure hypercholesterolemia, unspecified Category: Medical Plan: Recent HDL level is slightly low, 37. Triglycerides, total cholesterol, and LDL levels are normal. Continue to take atorvastatin 80 mg daily. Advised to limit foods high in saturated fat and avoid foods high in trans fat. Routine exercise encouraged. Fast for 10-12 hours, may drink water, and perform lipid panel blood work 2-3 days before next visit. Follow-up for telehealth visit in 3 months. Return sooner with symptoms or concerns. Verbalized understanding and agreed with treatment plan. (2) Normocytic anemia: Code(s): D64.9 - Anemia, unspecified Category: Medical Plan: Recent RBC and H&H are slightly low, 4.08 and 10.7/32.8 respectively, MCV is normal. Iron profile, ferritin, vitamin B12, and folate levels are normal. Likely anemia of chronic disease such as inflammation. Will monitor CBC periodically or with associated symptoms. Orders: Orders Lipid Panel 3 Months E78.00 - Pure hypercholesterolemia, unspecified
--- OUTSIDE RECORDS SUMMARY | 2024-10-29 14:04 | XMS_ITS | Continuity of Care Document ---
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 BASIC METABOLIC PANEL (fasting) CHLORIDE [MOLES/VOLU ME] IN SERUM OR PLASMA 104 mmol/L 100 - 110 05/17 Specimen Type: SERUM No comment entered. Ordering Provider: RICHARD OTOOLE Report Released Date/Time: May 11, 2024 02:17 PM Reporting Lab: [facility] [address] [address] Performing Lab: [facility] [address] [address] [place] BASIC METABOLIC PANEL (fasting) CARBON DIOXIDE, TOTAL [MOLES/VOLU ME] IN SERUM OR PLASMA 24 meq/L 20 - 30 05/17 Specimen Type: SERUM No comment entered. Ordering Provider: RICHARD OTOOLE Report Released Date/Time: May 11, 2024 02:17 PM Reporting Lab: [address] [address] Performing Lab: [facility] [address] [address] [place] BASIC METABOLIC PANEL (fasting) CREATININE [MASS/VOLUM E] IN SERUM OR PLASMA 0.92 mg/dL 0.50 - 1.40 05/17 Specimen Type: SERUM No comment entered. Ordering Provider: RICHARD OTOOLE Report Released Date/Time: May 11, 2024 02:17 PM Reporting Lab: [facility] [address] [address] Performing Lab: [facility] [address] [address] [place] BASIC METABOLIC PANEL (fasting) GLOMERULAR FILTRATION RATE/1.73 SQ M.PREDICTED [VOLUME RATE/AREA] IN SERUM, PLASMA OR BLOOD BY CREATININE- BASED FORMULA (CKD-EPI 2020) 86 mL/min 60 05/17 Specimen Type: SERUM No comment entered. Ordering Provider: RICHARD OTOOLE Report Released Date/Time: May 11, 2024 02:17 PM Reporting Lab: [facility] [address] [address] Performing Lab: [facility] [address] [facility] [address] [place] VITAMIN D (25-OH) 25-HYDROXYV ITAMIN D3 [MASS/VOLUM E] IN SERUM OR PLASMA 36 ng/mL 20 - 50 05/17 Specimen Type: SERUM No comment entered. Ordering Provider: RICHARD OTOOLE Report Released Date/Time: May 11, 2024 02:17 PM Reporting Lab: [address] [address] Performing Lab: [address] [address] [place] URIC ACID URATE [MASS/VOLUM E] IN SERUM OR PLASMA 4.1 mg/dL 3.5 - 7.2 05/17 Specimen Type: SERUM No comment entered. Ordering Provider: RICHARD OTOOLE Report Released Date/Time: May 11, 2024 02:17 PM Reporting Lab: [address] [address] Performing Lab: [address] [address] [employer] HEMOGLOBI N A1C PANEL HEMOGLOBIN A1C/HEMOGLO BIN.TOTAL [...] May 11, 2024 02:17 PM Reporting Lab: [address] [address] Performing Lab: [address] [address] [place] [employer] Vital Signs Combined list of inpatient and outpatient Vital Signs from Department of Defense and Veterans Affairs, ranging from 12 months to all on record, depending upon the facility. Vital Sign Value Date Comments Source SYSTOLIC BLOOD PRESSURE 148 08/04/2024 10:17:06 [facility] DIASTOLIC BLOOD PRESSURE 73 08/04/2024 10:17:06 [facility] PULSE OXIMETRY 97 08/04/2024 10:17:06 [place] WEIGHT 170 08/04/2024 10:17:06 [place] BMI 27 kg/m2 08/04/2024 10:17:06 [place] TEMPERATURE 97 08/04/2024 10:17:06 [place] PULSE 79 08/04/2024 10:17:06 [place] RESPIRATION 18 08/04/2024 10:17:06 [place] SYSTOLIC BLOOD PRESSURE 140 05/19/2024 13:26:31 [facility] DIASTOLIC BLOOD PRESSURE 83 05/19/2024 13:26:31 [facility] PULSE OXIMETRY 97 05/19/2024 13:26:31 [place] WEIGHT 173 05/19/2024 13:26:31 [place] BMI 27 kg/m2 05/19/2024 13:26:31 [place] PULSE 75 05/19/2024 13:26:31 [place] RESPIRATION 18 05/19/2024 13:26:31 [place] Encounters Combined list of: 1) Encounters from Department of Veterans Affairs facilities going backup to the last 18 months, not all [place] inpatient encounters are included; 2) Encounters from the Department of Defense facilities going backup to 280 months. Location Location Details Encounter Type Encounter Number Reason For Visit Attending Provider ADM Date DC Date Status Disposition Source [facility] En[facility] [id number] 05/05 [facility] Encounter [id number] 05/07 [facility] Out[facility] Encounter [id number] 05/08 [facility] Out[facility] Encounter [id number] 05/20 [facility] LD OFFICE O/P EST LOW 20-29 MIN [id number] Diagnos is: ICD-10- CM 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 JUAN DHILLON OY F 05/20 [place] [facility] EYE EXAM&TX ESTAB PT 1/>VST [id number] Diagnos is: ICD-10- CM Z96.1 Presenc e of intraoc ular lens [facility] CMPTR OPHTH IMG OPTIC NERVE [id number] Diagnos is: ICD-10- CM H40.013 Open angle with borderl ine finding s, low risk, bilater al [facility] FIT SPECTACLES MONOFOCAL [id number] Diagnos is: ICD-10- CM Z46.0 Encount er for fit/adj st of spectac les and contact lenses JONATHON,IN JOE 05/23 [facility] Out[facility] Encounter [id number] 05/26 [facility] OFFICE O/P EST LOW 20-29 MIN [id number] Diagnos is: ICD-10- CM F06.33 Mood disorde r due to known physiol cond w manic feature JUAN Antoine OPetey F 05/28 [place] [facility] Out[facility] Encounter [id number] 07/18 [facility] En[facility] [id number] 08/11 [facility] Outpatient Encounter [id number] 08/14 [facility] [place] OFFICE O/P EST LOW 20 MIN [id number] Diagnos is: ICD-10- CM 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 JACQUIEJUAN OY F 08/27 [place] [facility] Outpatient Encounter [id number] 08/27 [facility] PERIODIC ORAL EVAL EST [id number] Diagnos is: ICD-10- CM K08.199 Complet e loss of teeth due to oth cause, unspeci fied class RAGHAVENDR A,SANGEETH A 09/01 [place] OFFICE O/P EST MOD 30 MIN [id number] Diagnos is: ICD-10- CM 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 TATI OTOOLE 09/28 [place] [facility] Outpatient Encounter [id number] 11/02 [facility] [place] OFFICE O/P EST LOW 20 MIN [id number] Diagnos is: ICD-10- CM 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 Diagnos is: ICD-10- CM G47.30 Sleep apnea, unspeci fied JARMOLOWIC ZFRANC 05/06 [facility] Outpatient Encounter [id number] 1.05/11 [facility] OFFICE O/P EST MOD 30 MIN [id number] Diagnos is: ICD-10- CM N18.30 Chronic kidney disease , stage 3 unspeci fied TATI OTOOLE 05/19 [facility] LD OFFICE O/P EST LOW 20 MIN [id number] Diagnos is: ICD-10- CM F06.33 Mood disorde r due to known physiol cond w manic feature JUAN Antoine OPetey F 05[facility]26 [facility] COMPRE OPH EXAM EST PT 1/> [id number] Diagnos is: ICD-10- CM 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 FRANTZ HOLT 06/22 [facility] FIT SPECTACLES MONOFOCAL [id number] Diagnos is: ICD-10- CM Z46.0 Encount er for fit/adj st of spectac les and contact lenses FRANTZ HOLT 06/22 [facility] PT EDUCATION NOC INDIVID [id number] Diagnos is: ICD-10- CM G47.[address] AMANT,VITALY E P 06/28 [place] [facility] Outpatient Encounter [id number] 07/05 [facility] COLLJ & INTERPJ DATA EA 30 D [id number] Diagnos is: ICD-10- CM G47.30 Sleep apnea, unspeci fied ANNA DUDLEY A 07/05 [facility] OFFICE O/P EST LOW 20 MIN [id number] Diagnos is: ICD-10- CM 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 JUAN DHILLON OY F 07/07 [place] [facility] Outpatient Encounter [id number] 07/12 [facility] COLLJ & INTERPJ DATA EA 30 D [id number] Diagnos is: ICD-10- CM G47.30 Sleep apnea, unspeci fied ST AMANT,VITALY E P 07/13 [facility] Outpatient Encounter [id number] 07/30 [facility] Outpatient Encounter [id number] 08/02 [facility] OFFICE O/P EST MOD 30 MIN [id number] Diagnos is: ICD-10- CM K21.00 Gastro- esophag eal reflux dis with esophag itis, without bleed TATI OTOOLE 08/04 [place] [facility] Out[facility] Encounter [id number] 08/10 [facility] En[facility] [id number] [facility] Encounter [id number] [facility] Encounter [id number] [facility] Out[facility] Encounter [id number] 08/18 [facility] PH1 ASSMT&MGMT NQHP 11-20 [id number] Diagnos is: ICD-10- CM G47.30 Sleep apnea, unspeci fied JARMOLOWIC Z,FRANC 08/19 [facility] En[facility] [id number] 08/20 [facility] Out[facility] Encounter [id number] 08/21 [facility] PERIODIC ORAL EVAL EST [id number] Diagnos is: ICD-10- CM K08.199 Complet e loss of teeth due to oth cause, unspeci fied class RAGHAVENDR A,SANGEETH A 08/23 [place] [facility] Out[facility] Encounter [id number] 09/16 [facility] Outpatient Encounter [id number] 09/23 [facility] Outpatient Encounter [id number] 10/18 [facility] Social History Combined list of available smoking, tobacco, and other social history from Department of Defense and Veterans Affairs facilities. Social History Type Response Date Comment Source Tobacco smoking status [facility]-TOBACCO NEVER USED 05/19/2024 [facility] History of tobacco use [place] NEVER USED 05/28/2023 [facility] History of tobacco use [place]AC[place] FORMER USER 04/24/2022 [facility] History of tobacco use [place] FORMER US[place] 03/23/2021 [facility] History of tobacco use [facility]-TO[facility]AC[facility] FORMER USER 03/23/2021 [facility] History of tobacco use [place]-TO[place]AC[place] NEVER USED 04/04/2020 [facility] History of tobacco use [place]-TOBACCO QUIT 15 YRS OR MORE 04/14/2019 [facility] History of tobacco use QUIT TOBACCO USE 1-7 YEARS AGO 02/27/2018 [facility] History of tobacco use QUIT TOBACCO USE 1-7 YEARS AGO 09/22/2017 [facility] History of tobacco use QUIT TOBACCO USE > 7 YEARS AGO 10/09/2016 [facility] History of tobacco use QUIT TOBACCO USE 1-7 YEARS AGO 01/15/2016 [facility] History of tobacco use QUIT TOBACCO USE IN PAST YEAR 06/20/2015 [facility] History of tobacco use CURRENT SMOKER 07/22/2014 advise stop [facility] History of tobacco use V1-PT THINKING ABOUT QUIT TOBACCO USE 08/10/2013 [facility] History of tobacco use CURRENT SMOKER 02/22/2013 Pt. stated he smokes half a pack a day. [facility] History of tobacco use V1-PT DECLINES TOBACCO CESSATION MEDS 08/04/2012 [facility] History of tobacco use CURRENT SMOKER 02/21/2012 Pt. stated he is down to half a pack a day! [facility] History of tobacco use V1-PT DECLINES TOBACCO CESSATION MEDS 08/23/2011 [facility] History of tobacco use CURRENT SMOKER 02/04/2011 half a pack a day [facility] History of tobacco use V1-PT DECLINES TOBACCO CESSATION MEDS 06/22/2010 [facility] History of tobacco use QUIT TOBACCO USE IN PAST YEAR 10/02/2009 [facility] History of tobacco use CURRENT SMOKER 12/23/2008 Pt. smokes les then a pack a day!! [facility] History of tobacco use V1-PT DECLINES TOBACCO CESSATION MEDS 04/11/2008 [facility] History of tobacco use CURRENT SMOKER 05/22/2007 patient currently smokes 1 pk cigarettes daily. [facility] History of tobacco use V1-PT THINKING ABOUT QUIT TOBACCO USE 03/26/2007 [facility] History of tobacco use V1-PT THINKING ABOUT QUIT TOBACCO USE 08/21/2006 [facility] History of tobacco use CURRENT SMOKER 05/07/2006 pt. a smoker for 45 years. [facility] History of tobacco use CURRENT SMOKER 07/31/2004 [id number] [facility] History of tobacco use CURRENT SMOKER 03/17/2003 Less than a pack a day [facility] Plan of Care List of future care activities from Department of Veterans Affairs facilities. Additional future care activities may be listed in the Assessment and Plan section. Date/Time Care Activity Care Activity Detail Facili ty 11/09/2024 AMBULATORY - PSYCHIATRY [facility]
--- OUTSIDE RECORDS SUMMARY | 2024-10-29 14:04 | XMS_ITS | Encounter Summary ---
Author Name [facility] [facility] [place] Address [address] [place] [address] Care Team Providers Care Road Worker Name Role Phone RICHARD OTOOLE Primary Care [...] Ascencio's Name Patient's Relationship to Policy Ascencio [facility] MEDICAID MEDICAID [facility] Jul 21, 2020 [id number] MARITZA POZO PATIENT [facility] MEDICAID ID DEPT HUMAN [facility] Jul 21, 2020 [id number] MARITZA POZO PATIENT MEDICAID MEDICAID [facility] [place] Jul 21, 2012 MEDICAI D [id number] MARITZA POZO PATIENT MEDICARE (WNR) MEDICARE (M) PART A Mar 21, 1997 PART A [id number] MARITZA POZO PATIENT MEDICARE (WNR) MEDICARE (M) PART B Mar 21, 1997 PART B [id number] MARITZA POZO PATIENT MEDICARE (WNR) MEDICARE (M) PART A Mar 21, 1997 PART A [id number] MARITZA POZO PATIENT MEDICARE (WNR) MEDICARE (M) PART B Mar 21, 1997 PART B [id number] MARITZA POZO PATIENT MEDICARE (WNR) MEDICARE (M) PART A Mar 21, 1997 PART A [id number] [phone] [id number] MARITZA POZO PATIENT MEDICARE (WNR) MEDICARE (M) PART B Mar 21, 1997 PART B [id number] MARITZA POZO PATIENT MEDICARE (WNR) MEDICARE (M) PART A Mar 21, 1997 PART A [id number] MARITZA POZO PATIENT MEDICARE (WNR) MEDICARE (M) PART B Mar 21, 1997 PART B [id number] MARITZA POZO PATIENT MEDICARE (WNR) MEDICARE (M) PART B Mar 21, 1997 PART B [id number] MARITZA POZO PATIENT Selected Encounter This section includes the information on record at [place] for the Encounter. Date/Time Encounter Type Encounter Description Reason Pro vider Source Jul 30, 2024 06:17 PM Outpatient Encounter ADMIN PAT ACTIVTIES (MASNONCT) IHE Encounter Template Text not used by [place] Plan of Treatment: Future Appointments (+ 6 months) and Future Tests (+/- 45 days) The Plan of Treatment section includes future care activities for the patient from all [place] treatmentfacilities. This section includes future appointments and future orders which are active, pending or scheduled. Future Appointments This section includes appointments that were scheduled to occur 6 months from the date of the Encounter, up to a maximum of 20 appointments. The data comes from all [place] treatment facilities. Appointment Date/Time Appointment Type Appointme nt Facility Name Aug 04, 2024 10:00 AM [facility]ORY [facility]ICINE [facility] Aug 16, 2024 09:20 AM [place] [facility] Aug 23, 2024 01:00 PM AMBULATORY - NONE [facility] Nov 09, 2024 09:30 AM AMBULATORY - PSYCHIATRY [facility] December 16, 2024 01:00 PM AMBULATORY - MEDICINE [facility] Social History: Smoking Status (Most current) and Tobacco Use (All prior to encounter date) This section includes the most current, and the historical, smoking and tobacco- related health factors from the [place] facility where the Encounter took place. Current Smoking Status This section includes the most current smoking, or tobacco-related health factor, from the [place] facility where the Encounter took place. Date/Time Current Smoking Status Comment Facil ity Mar 23, 2021 09:02 AM [facility]-TOBACCO FORMER USER [facility] Tobacco Use History This section includes a history of the smoking, or tobacco-related health factors, that were collected on or before the date of the Encounter. The data comes from the [place] facility where the Encounter took place. Date/Time Smoking Status/Tobacco Use Comment F acotilio Mar 23, 2021 09:02 AM [place]-TO[place]AC[place] QUIT 5 TO < 15 YRS [facility] Encounter Notes: All associated encounter notes This section contains the clinical notes associated to the Encounter. Date/Time Encounter Note(s) Provider Source Jul 30, 2024 06:17 PM PHARMACY NOTE: LOCAL TITLE: PHARMACY CUSTOMER CARE MEDICATION RENEWAL STANDARD TITLE: PHARMACY NOTE DATE OF NOTE: JUL 30, 2024@18:17 ENTRY DATE: JUL 30, 2024@18:17:54 AUTHOR: ROSE LEHAMN EXP COSIGNER: URGENCY: STATUS: COMPLETED Date: Jul Division: [place] Pt referred by Pharmacy Call Center for medication renewal: Non-controlled/maintenanc e medication Medications requested: [id number] TAMSULOSIN HCL 0.4MG CAP Defer to primary care provider To be mailed . Please review and renew if appropriate. *This note was generated by [facility]/MD Pharmacy Customer Care. If you have any questions or need assistance, do not contact this author. Please refer all questions to your local, on-site pharmacy departments. /david/ ROSE LEHMAN Electrical Design Engineer, MD/Pharmacy Customer Care Signed: 07/30/2024 18:18 Receipt Acknowledged By: 08/02/2024 08:33 /david/ Mulu Cole RN Registered Nurse (RN) 08/02/2024 08:16 /david/ RICHARD OTOOLE PA-C STAFF PHYSICIAN ROPE TOW OPERATOR ROSE LEHMAN [facility]
--- OUTSIDE RECORDS SUMMARY | 2024-10-29 14:05 | XMS_ITS | Encounter Summary ---
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 Trailhead Construction Worker Name Role Phone RICHARD OTOOLE Primary [...] Ascencio's Name Patient's Relationship to Policy Ascencio [facility] MEDICAID MEDICAID [facility] Jul 21, 2020 [id number] MARITZA POZO PATIENT [facility] Jul 21, 2020 [id number] MARITZA POZO PATIENT MEDICAID MEDICAID [facility] Jul 21, 2012 MEDICAI D [id number] MARITZA POZO PATIENT MEDICARE (WNR) MEDICARE (M) PART A Mar 21, 1997 PART A [id number] [phone] MARITZA POZO PATIENT MEDICARE (WNR) MEDICARE (M) PART B Mar 21, 1997 PART B [id number] MARITZA POZO PATIENT MEDICARE (WNR) MEDICARE (M) PART A Mar 21, 1997 PART A [id number] [phone] [id number] MARITZA POZO PATIENT MEDICARE (WNR) MEDICARE (M) PART B Mar 21, 1997 PART B [id number] MARITZA POZO PATIENT MEDICARE (WNR) MEDICARE (M) PART A Mar 21, 1997 PART A [id number] MARITZA POZO PATIENT MEDICARE (WNR) MEDICARE (M) PART B Mar 21, 1997 PART B [id number] [phone] MARITZA POZO PATIENT MEDICARE (WNR) MEDICARE (M) PART B Mar 21, 1997 PART B [id number] MARITZA POZO PATIENT MEDICARE (WNR) MEDICARE (M) PART A Mar 21, 1997 PART A [id number] MARITZA POZO PATIENT MEDICARE (WNR) MEDICARE (M) PART B Mar 21, 1997 PART B [id number] MARITZA POZO PATIENT Selected Encounter This section includes the information on record at [place] for the Encounter. 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 This section includes future appointments and future orders which are active, pending or scheduled. Future Appointments This section includes appointments that were scheduled to occur 6 months from the date of the Encounter, up to a maximum of 20 appointments. The data comes from all [place] treatment facilities. Appointment Date/Time Appointment Type Appointme nt Facility Name Aug 04, 2024 10:00 AM AMBULATORY - MEDICINE [facility] Aug 16, 2024 09:20 AM AMBULATORY - MEDICINE [facility] WSTR[facility] IBRAH[facility] Aug 23, 2024 01:00 PM AMBULATORY - NONE [facility] Nov 09, 2024 09:30 AM AMBULATORY - PSYCHIATRY [facility] December 16, 2024 01:00 PM AMBULATORY - MEDICINE [facility] Social History: Smoking Status (Most current) and Tobacco Use (All prior to encounter date) This section includes the most current, and the historical, smoking and tobacco- related health factors from the [place] facility where the Encounter took place. Current Smoking Status This section includes the most current smoking, or tobacco-related health factor, from the [place] facility where the Encounter took place. Date/Time Current Smoking Status Comment Facil [facility] May 19, 2024 01:00 PM VA-TOBACCO NEVER USED [facility] Tobacco Use History This section includes a history of the smoking, or tobacco-related health factors, that were collected on or before the date of the Encounter. The data comes from the [place] facility where the Encounter took place. Date/Time Smoking Status/Tobacco Use Comment F acility May 28, 2023 10:00 AM VA-TOBACCO NEVER USED [facility] Apr 24, 2022 09:00 AM VA-TOBACCO FORMER USER [facility] Apr 24, 2022 09:00 AM VA-TOBACCO QUIT 15 YRS OR MORE [facility] Mar 23, 2021 09:00 AM VA-TOBACCO FORMER USER [facility] Mar 23, 2021 09:00 AM VA-TOBACCO QUIT 15 YRS OR MORE [facility] Apr 04, 2020 01:00 PM VA-TOBACCO NEVER USED [facility] Apr 14, 2019 11:41 AM VA-TOBACCO FORMER USER [facility] Apr 14, 2019 11:41 AM VA-TOBACCO QUIT 1 TO < 5 YRS [facility] Apr 14, 2019 11:41 AM VA-TOBACCO QUIT 15 YRS OR MORE [facility] Feb 27, 2018 02:04 PM QUIT TOBACCO USE 1 -7 YEARS AGO [facility] Sep 22, 2017 09:24 AM QUIT TOBACCO USE 1 -7 YEARS AGO [facility] Oct 09, 2016 10:57 AM QUIT TOBACCO USE > 7 YEARS AGO [facility] Jan 15, 2016 01:07 PM QUIT TOBACCO USE 1 -7 YEARS AGO [facility] Jun 20, 2015 02:04 PM QUIT TOBACCO USE I N PAST YEAR [facility] Jul 22, 2014 10:51 AM CURRENT SMOKER advise stop [facility] Jul 22, 2014 10:51 AM V1-PT DECLINES REF TO TOBACCO CESS [facility] Jul 22, 2014 10:51 AM V1-PT THINKING ABO [place] QUIT TOBACCO USE [facility] Aug 10, 2013 10:58 AM V1-PT DECLINES REF TO TOBACCO CESS [facility] Aug 10, 2013 10:58 AM V1-PT THINKING ABO [place] QUIT TOBACCO USE [facility] Feb 22, 2013 08:20 AM CURRENT SMOKER Pt. stated he smokes half a pack a day. [facility] Aug 04, 2012 03:41 PM V1-PT DECLINES REF TO TOBACCO CESS [facility] Aug 04, 2012 03:41 PM V1-PT DECLINES TOB ACCO CESSATION [facility] Aug 04, 2012 03:41 PM V1-PT THINKING ABO [place] QUIT TOBACCO USE [facility] Feb 21, 2012 08:52 AM CURRENT SMOKER Pt. stated he is down to half a pack a day! [facility] Feb 21, 2012 08:52 AM QUIT TOBACCO USE I N PAST YEAR [facility] Aug 23, 2011 02:42 PM V1-PT DECLINES REF TO TOBACCO CESS [facility] Aug 23, 2011 02:42 PM V1-PT DECLINES TOB ACCO CESSATION [facility] Aug 23, 2011 02:42 PM V1-PT THINKING ABO [place] QUIT TOBACCO USE [facility] Feb 04, 2011 01:41 PM CURRENT SMOKER half a pack a day [facility] Feb 04, 2011 01:41 PM V1-PT DECLINES REF TO TOBACCO CESS [facility] Feb 04, 2011 01:41 PM V1-PT DECLINES TOB ACCO CESSATION [facility] Feb 04, 2011 01:41 PM V1-PT THINKING ABO [place] QUIT TOBACCO USE [facility] Jun 22, 2010 09:51 AM V1-PT DECLINES REF TO TOBACCO CESS [facility] Jun 22, 2010 09:51 AM V1-PT DECLINES TOB ACCO CESSATION [facility] Jun 22, 2010 09:51 AM V1-PT NOT INTEREST ED IN QUIT TOBACCO USE [facility] Oct 02, 2009 02:48 PM QUIT TOBACCO USE I N PAST YEAR [facility] Dec 23, 2008 02:56 PM CURRENT SMOKER Pt. smokes les then a pack a day!! [facility] Dec 23, 2008 02:56 PM V1-PT DECLINES REF TO TOBACCO CESS [facility] Dec 23, 2008 02:56 PM V1-PT DECLINES TOB ACCO CESSATION [facility] Dec 23, 2008 02:56 PM V1-PT THINKING ABO UT QUIT TOBACCO USE [facility] Apr 11, 2008 08:04 AM V1-PT DECLINES REF TO TOBACCO CESS [facility] Apr 11, 2008 08:04 AM V1-PT DECLINES TOB ACCO CESSATION [facility] Apr 11, 2008 08:04 AM V1-PT NOT INTEREST ED IN QUIT TOBACCO USE [facility] May 22, 2007 09:25 AM CURRENT SMOKER patient currently smokes 1 pk cigarettes daily. [facility] Mar 26, 2007 08:47 AM V1-PT THINKING ABO [place] QUIT TOBACCO USE [facility] Aug 21, 2006 08:11 AM V1-PT THINKING ABO [place] QUIT TOBACCO USE [facility] May 07, 2006 10:39 AM CURRENT SMOKER pt. a smoker for 45 years. [facility] Jul 31, 2004 10:48 AM CURRENT SMOKER [email or web address] [facility] Mar 17, 2003 02:07 PM CURRENT SMOKER Less than a pack a day [facility] Encounter Notes: All associated encounter notes This section contains the clinical notes associated to the Encounter. Date/Time Encounter Note(s) Provider Source Jul 07, 2024 09:47 AM CLINICAL NURSE SPE CIALIST NOTE: LOCAL TITLE: CLINICAL NURSE SPECIALIST/MENTAL HEALTH STANDARD TITLE: CLINICAL NURSE SPECIALIST NOTE DATE OF NOTE: JUL 07, 2024@09:47 ENTRY DATE: JUL 07, 2024@09:47:14 AUTHOR: CEDRIC DHILLON EXP COSIGNER: URGENCY: STATUS: COMPLETED [facility] [employer] [facility] (VVC) Standard Documentation VVC Clinician Resources Only: E911 (Emergency Call Relay Center): [phone] National Veterans Crisis Line - 988 then press #1. [facility] Suicide Coordinator [phone], Ext. [phone]; Back-up Ext. [phone] [place] Police, Sushant SCHWAB [phone] Introduction: Visit is being conducted by [employer] Gray identified with 2 identifiers: [X] Full Name [X] Date of [ ] VA ID Card Emergency Plan: confirmed and/or provided the following information in case of emergency or technology failure. PATIENT PHONE - PHONE NUMBER [CELLULAR] - Is patient phone number correct, if not, enter below: Gray's phone number: MARITZA CURRIE [address], [address] Gray's present location and address for appointment: at home Gray's emergency contact name and phone number: as listed reported that location is private and safe: Yes Informed Consent: Gray informed of the risks and benefits of Telehealth video care. has the right to refuse video services. If refuses video visit, a [id number] visit will be scheduled. Gray verbalized consent for this video visit: Yes Gray provided consent for any other persons present for visit: N/A If yes, who and relationship to patient: Secure visit: Visit was locked for security and privacy: Yes patient was seen today for treatment of the following diagnosis/diagnoses: Video visit - Pertinent symptoms: Depression / TUAN- medication management. Depression tied to chronic pain hx of lumbar stenosis and peripheral neuropathy. Medical history: [facility] October 19 2018, spinal fusion and he states that it has relieved back pain but still coping with neuropathic pain. . He has been taking medication nightly at prescribed dosage however he stopped Duloxatine because he thought it was making him dizzy. He reports mood is stable since last visit . A light box was ordered and he states that it helps him in the morning during the winter months The following VA and Non-VA medications were reconciled with the patient: Active Outpatient Medications (including Supplies): ATORVASTATIN CALCIUM 80MG TAB TAKE ONE-HALF TABLET BY ACTIVE MOUTH ONCE DAILY FOR CHOLESTEROL CARBOXYMETHYLCELLULOSE 0.5% OPH SOLN INSTILL 1 DROP INTO ACTIVE EACH EYE THREE TIMES DAILY NEEDED FOR DRY EYES CETIRIZINE HCL 10MG TAB TAKE ONE TABLET BY MOUTH ONCE ACTIVE DAILY FOR ALLERGIES DICLOFENAC NA 1% TOP GEL APPLY 4 GRAMS TOPICALLY FOUR ACTIVE TIMES A DAY FOR OSTEOARTHRITIS - USE DOSING CARD PROVIDED IN BOX DIPHENHYDRAMINE HCL 50MG CAP TAKE ONE CAPSULE BY MOUTH ACTIVE TWICE DAILY NEEDED DULOXETINE HCL 20MG EC CAP TAKE TWO CAPSULES BY MOUTH ACTIVE EVERY MORNING FOR MOODAND NEUROPATHIC PAIN EPINEPHRINE (EQV-EPI-PEN) 0.3MG/0.3ML INJECT DIRECTED ACTIVE INTRAMUSCULARLY DIRECTED FLUOXETINE HCL 20MG CAP TAKE TWO CAPSULES BY MOUTH ONCE ACTIVE (S) DAILY FOR DEPRESSION AND ANXIETY LORAZEPAM 1MG TAB TAKE ONE TABLET BY MOUTH AT BEDTIME FOR ACTIVE (S) ANXIETY/NERVES OMEPRAZOLE 20MG CAP,EC TAKE ONE CAPSULE BY MOUTH TWICE ACTIVE (S) DAILY NEEDED TAMSULOSIN HCL 0.4MG CAP TAKE ONE CAPSULE BY MOUTH BEDTME ACTIVE (S) Non-VA ASPIRIN 81MG EC TAB 81MG BY MOUTH EVERY DAY ACTIVE Non-VA NIACIN 500MG TAB 500MG BY MOUTH ONCE DAILY ACTIVE Non-VA OMEPRAZOLE 20MG CAP,EC 20MG BY MOUTH TWICE DAILY ACTIVE Relevant mental status exam or other objective findings: Well-groomed friendly in home Thought process- goal directed Speech : normal rate and tone No a/v hallucination/ delusions. Judgement and insight -intact Orientation- x 3 Associations intact Recent and remote memory- intact Attention and concentration- good Language- intact Good fund of knowledge Mood stable today ok tied to neck pain - No S/I- Dx with sleep apnea ,on Cpap,- and sleep has improved Assessment:- family is stable- close to his grandchildren. Discussed seasonal affective disorder that is his history- Plan: Renew Lorazepam .5 mg bid for anxiety x 30 days and to help with sleep initiation- good response. Continue Prozac 40mg for anxiety/depression- He reports good benefit for mood taking Prozac to 40 mg daily x 90 days now through [facility]. D/C Duloxetine Will monitor for lizzie Labs reviewed Labs/Radiology/Tests/Consultation _x_ none ordered __ obtained: labs reviewed Rt in 12 weeks /in person by request The rationale for the psychiatric medications and the alternatives to treatment were discussed with the patient. The side effect profile of the psychiatric medications was reviewed with the patient. Patient demonstrated reasonable understanding of the medication side effects and the above issues. The benefits of psychiatric medications outweigh risks for this patient. I educated the patient about the side effect profile of the benzodiazepine, including potential for sedation, for impaired coordination, for falling, and for impaired cognition. The patient was advised not to drive after taking the benzodiazepine -- The patient was advised about the potential for excessive sedation when the benzodiazepine is taken with other medications. The patient was advised not to take the benzodiazepine with alcohol. The patient was advised about the potential for addiction to the benzodiazepine. The concepts in the benzodiazepine treatment contract were reviewed with the patient and the patient agreed. The patient demonstrated good understanding of the benzodiazepine side effect profile. The benefits of benzodiazepine treatment outweigh risks for this patient. /david/ Cedric Dhillon APRN, STAFF CLINICAL NURSE SPECIALIST Signed: 07/07/2024 09:57 CEDRIC DHILLON [facility]
--- OUTSIDE RECORDS SUMMARY | 2024-10-29 14:05 | XMS_ITS | Encounter Summary ---
Author Name [facility] [place] Address [address] [place] [address] Care Team Providers Care Anode Worker Name Role Phone RICHARD OTOOLE Primary [...] Ascencio's Name Patient's Relationship to Policy Ascencio [facility] MEDICAID MEDICAID [facility]UM[facility] Jul 21, 2020 [id number] MARITZA POZO PATIENT [facility] [place]ICAID [place] [facility] Jul 21, 2020 [id number] MARITZA POZO PATIENT MEDICAID MEDICAID [facility] Jul 21, 2012 MEDICAI D [id number] MARITZA POZO PATIENT MEDICARE (WNR) MEDICARE (M) PART A Mar 21, 1997 PART A [id number] MARITZA POZO PATIENT MEDICARE (WNR) MEDICARE (M) PART B Mar 21, 1997 PART B [id number] MARITZA POZO PATIENT MEDICARE (WNR) MEDICARE (M) PART A Mar 21, 1997 PART A [id number] MARITZA POZO PATIENT MEDICARE (WNR) MEDICARE (M) PART B Mar 21, 1997 PART B [id number] [id number] MARITZA POZO PATIENT MEDICARE (WNR) MEDICARE (M) PART A Mar 21, 1997 PART A [id number] MARITZA POZO PATIENT MEDICARE (WNR) MEDICARE (M) PART B Mar 21, 1997 PART B [id number] MARITZA POZO PATIENT MEDICARE (WNR) MEDICARE (M) PART B Mar 21, 1997 PART B [id number] MARITZA POZO PATIENT MEDICARE (WNR) MEDICARE (M) PART A Mar 21, 1997 PART A [id number] MARITZA POZO PATIENT MEDICARE (WNR) MEDICARE (M) PART B Mar 21, 1997 PART B [id number] MARITZA POZO PATIENT Selected Encounter This section includes the information on record at [place] for the Encounter. Date/Time Encounter Type Encounter Description Reason Pro vider Source Aug 21, 2024 04:45 AM Outpatient Encounter ADMIN PAT ACTIVTIES (MASNONCT) [facility] Encounter Template Text not used by [place] Plan of Treatment: Future Appointments (+ 6 months) and Future Tests (+/- 45 days) The Plan of Treatment section includes future care activities for the patient from all [place] treatmentfacilities. This section includes future appointments and future orders which are active, pending or scheduled. Future Appointments This section includes appointments that were scheduled to occur 6 months from the date of the Encounter, up to a maximum of 20 appointments. The data comes from all [place] treatment facilities. Appointment Date/Time Appointment Type Appointme nt Facility Name Aug 23, 2024 01:00 PM AMBULATORY - NONE [facility] Nov 09, 2024 09:30 AM AMBULATORY - PSYCHIATRY [facility] December 16, 2024 01:00 PM AMBULATORY - MEDICINE [facility] Social History: Smoking Status (Most current) and Tobacco Use (All prior to encounter date) This section includes the most current, and the historical, smoking and tobacco- related health factors from the [place] facility where the Encounter took place. Current Smoking Status This section includes the most current smoking, or tobacco-related health factor, from the [place] facility where the Encounter took place. Date/Time Current Smoking Status Comment Facil ity Mar 23, 2021 09:02 AM VA-TOBACCO FORMER USER [facility] Tobacco Use History This section includes a history of the smoking, or tobacco-related health factors, that were collected on or before the date of the Encounter. The data comes from the [place] facility where the Encounter took place. Date/Time Smoking Status/Tobacco Use Comment F acility Mar 23, 2021 09:02 AM [place]-TOBACCO QUIT 5 TO < 15 YRS [facility] Encounter Notes: All associated encounter notes This section contains the clinical notes associated to the Encounter. Date/Time Encounter Note(s) Provider Source Aug 21, 2024 04:45 AM PHARMACY NOTE: LOCAL TITLE: PHARMACY CUSTOMER CARE MEDICATION RENEWAL STANDARD TITLE: PHARMACY NOTE DATE OF NOTE: AUG 21, 2024@04:45 ENTRY DATE: AUG 21, 2024@04:45:35 AUTHOR: ALEX SOLORIO EXP COSIGNER: URGENCY: STATUS: COMPLETED Date: Aug Division: [facility] referred by Pharmacy Call Center for medication renewal: Non-controlled/maintenanc e medication Medications requested: [id number] ALBUTEROL 90MCG (CFC-F) 200D ORAL INHL Defer to primary care provider To be mailed . Please review and renew if appropriate. *This note was generated by [facility]/ID Pharmacy Customer Care. If you have any questions or need assistance, do not contact this author. Please refer all questions to your local, on-site pharmacy departments. /david/ ALEX SOLORIO CPhT [place] [facility] Director, ID/Pharmacy Customer Care Signed: 08/21/2024 04:45 Receipt Acknowledged By: 08/23/2024 08:07 /david/ Mulu Cole, RN Registered Nurse (RN) 08/23/2024 08:13 /david/ RICHARD OTOOLE PA-C STAFF PHYSICIAN GALVANOMETER ASSEMBLER ALEX SOLORIO [facility]
--- OUTSIDE RECORDS SUMMARY | 2024-10-29 14:05 | XMS_ITS | Encounter Summary ---
Author Name [facility] [place] Organization [place] Address [address] [place] [id number] Care Team Providers [employer] Art Teacher Name Role Phone RICHARD WATKINS Primary Care [...] Ascencio's Name Patient's Relationship to Policy Ascencio [facility] MEDICAID MEDICAID [facility] Jul 21, 2020 [id number] MARITZA POZO PATIENT [facility]ICAID [facility] Jul 21, 2020 [id number] MRAITZA POZO PATIENT MEDICAID MEDICAID [facility] Jul 21, 2012 MEDICAI D [id number] MARITZA POZO PATIENT MEDICARE (WNR) MEDICARE (M) PART A Mar 21, 1997 PART A [id number] [phone] MARITZA POZO PATIENT MEDICARE (WNR) MEDICARE (M) PART B Mar 21, 1997 PART B [id number] [phone] MARITZA POZO PATIENT MEDICARE (WNR) MEDICARE (M) PART A Mar 21, 1997 PART A [id number] MARITZA POZO PATIENT MEDICARE (WNR) MEDICARE (M) PART B Mar 21, 1997 PART B [id number] [id number] MARITZA POZO MEDICARE (WNR) MEDICARE (M) PART A Mar 21, 1997 PART A [id number] MARITZA POZO PATIENT MEDICARE (WNR) MEDICARE (M) PART B Mar 21, 1997 PART B [id number] MARITZA POZO PATIENT MEDICARE (WNR) MEDICARE (M) PART B Mar 21, 1997 PART B [id number] MARITZA POZO PATIENT MEDICARE (WNR) MEDICARE (M) PART A Mar 21, 1997 PART A [id number] MARITZA POZO MEDICARE (WNR) MEDICARE (M) PART B Mar 21, 1997 PART B [id number] MARITZA POZO PATIENT Selected Encounter This [...] dis with esophagitis, without bleed RICHARD WATKINS [place] Plan of Treatment: Future Appointments (+ 6 [...] [place]ICINE [place] [facility] Aug 23, 2024 01:00 PM AMBULATORY - NONE [place] Nov 09, 2024 09:30 AM AMB[facility]ATORY - [facility]RY [facility] December 16, 2024 01:00 PM AMBULATORY - MEDICINE [facility] Vital Signs: All taken on the encounter date This section contains inpatient and outpatient Vital Signs collected on the date of the Encounter. Date/Time Temperature Pulse Blood Pressure Respiratory Rate SP02 Pain Height Weight Body Mass Index Source Aug 04, 2024 10:17 AM 97 79 148/73 18 97 170 27 [facility] Social History: Smoking Status [...] 19, 2024 01:00 PM VA-TOBACCO NEVER USED [place] Tobacco Use History This section includes a history of the smoking, or tobacco-related health factors, that were collected on or before the date of the Encounter. The data comes from the [place] facility where the Encounter took place. Date/Time Smoking Status/Tobacco Use Comment F acility May 28, 2023 10:00 AM VA-TOBACCO NEVER USED [place] Apr 24, 2022 09:00 AM VA-TOBACCO FORMER USER [place] Apr 24, 2022 09:00 AM VA-TOBACCO QUIT 15 YRS OR MORE [place] Mar 23, 2021 09:00 AM VA-TOBACCO FORMER USER [place] Mar 23, 2021 09:00 AM VA-TOBACCO QUIT 15 YRS OR MORE [place] Apr 04, 2020 01:00 PM VA-TOBACCO NEVER USED [place] Apr 14, 2019 11:41 AM VA-TOBACCO FORMER USER [place] Apr 14, 2019 11:41 AM VA-TOBACCO QUIT 1 TO < 5 YRS [place] Apr 14, 2019 11:41 AM VA-TOBACCO QUIT 15 YRS OR MORE [place] Feb 27, 2018 02:04 PM QUIT TOBACCO USE 1 -7 YEARS AGO [place] Sep 22, 2017 09:24 AM QUIT TOBACCO USE 1 -7 YEARS AGO [place] Oct 09, 2016 10:57 AM QUIT TOBACCO USE > 7 YEARS AGO [place] Jan 15, 2016 01:07 PM QUIT TOBACCO USE 1 -7 YEARS AGO [place] Jun 20, 2015 02:04 PM QUIT TOBACCO USE I N PAST YEAR [place] Jul 22, 2014 10:51 AM CURRENT SMOKER advise stop [place] Jul 22, 2014 10:51 AM V1-PT DECLINES REF TO TOBACCO CESS [facility] Jul 22, 2014 10:51 AM V1-PT THINKING ABO UT QUIT TOBACCO USE [place] Aug 10, 2013 10:58 AM V1-PT DECLINES REF TO TOBACCO CESS [facility] Aug 10, 2013 10:58 AM V1-PT THINKING ABO UT QUIT TOBACCO USE [place] Feb 22, 2013 08:20 AM CURRENT SMOKER Pt. stated he smokes half a pack a day. [place] Aug 04, 2012 03:41 PM V1-PT DECLINES REF TO TOBACCO CESS [facility] Aug 04, 2012 03:41 PM V1-PT DECLINES TOB ACCO CESSATION [facility] Aug 04, 2012 03:41 PM V1-PT THINKING ABO UT QUIT TOBACCO USE [place] Feb 21, 2012 08:52 AM CURRENT SMOKER Pt. stated he is down to half a pack a day! [place] Feb 21, 2012 08:52 AM QUIT TOBACCO USE I N PAST YEAR [place] Aug 23, 2011 02:42 PM V1-PT DECLINES REF TO TOBACCO CESS [facility] Aug 23, 2011 02:42 PM V1-PT DECLINES TOB ACCO CESSATION [facility] Aug 23, 2011 02:42 PM V1-PT THINKING ABO UT QUIT TOBACCO USE [place] Feb 04, 2011 01:41 PM CURRENT SMOKER half a pack a day [place] Feb 04, 2011 01:41 PM V1-PT DECLINES REF TO TOBACCO CESS [facility] Feb 04, 2011 01:41 PM V1-PT DECLINES TOB ACCO CESSATION [facility] Feb 04, 2011 01:41 PM V1-PT THINKING ABO UT QUIT TOBACCO USE [place] Jun 22, 2010 09:51 AM V1-PT DECLINES REF TO TOBACCO CESS [facility] Jun 22, 2010 09:51 AM V1-PT DECLINES TOB ACCO CESSATION [facility] Jun 22, 2010 09:51 AM V1-PT NOT INTEREST ED IN QUIT TOBACCO USE [place] Oct 02, 2009 02:48 PM QUIT TOBACCO USE I N PAST YEAR [place] Dec 23, 2008 02:56 PM CURRENT SMOKER Pt. smokes les then a pack a day!! [place] Dec 23, 2008 02:56 PM V1-PT DECLINES REF TO TOBACCO CESS [facility] Dec 23, 2008 02:56 PM V1-PT DECLINES TOB ACCO CESSATION [facility] Dec 23, 2008 02:56 PM V1-PT THINKING ABO UT QUIT TOBACCO USE [place] Apr 11, 2008 08:04 AM V1-PT DECLINES REF TO TOBACCO CESS [facility] Apr 11, 2008 08:04 AM V1-PT DECLINES TOB ACCO CESSATION [facility] Apr 11, 2008 08:04 AM V1-PT NOT INTEREST ED IN QUIT TOBACCO USE [place] May 22, 2007 09:25 AM CURRENT SMOKER patient currently smokes 1 pk cigarettes daily. [place] Mar 26, 2007 08:47 AM V1-PT THINKING ABO UT QUIT TOBACCO USE [place] Aug 21, 2006 08:11 AM V1-PT THINKING ABO UT QUIT TOBACCO USE [place] May 07, 2006 10:39 AM CURRENT SMOKER pt. a smoker for 45 years. [place] Jul 31, 2004 10:48 AM CURRENT SMOKER [id number] [place] Mar 17, 2003 02:07 PM CURRENT SMOKER Less than a pack a day [place] Encounter Notes: All associated encounter notes This [...] 09:55 /es/ RICHARD WATKINS PA-C STAFF PHYSICIAN HOOKER OFF --- Original Document --- 10/05/24 ADMINISTRATIVE NOTE: [facility] contacted by patient via [place] re: (X) Preferred modality: Face 2 Face (X) Appointment Request: To go over my medications (X) Preferred dates: 10/15/2024 PM Action taken: (X) [facility] PATIENT PHONE - PHONE NUMBER [CELLULAR] - Upcoming Appointment: 11/09/2024 09:30 SPR [facility] OTHER SALES SUPPORT WORKER 1 12/16/2024 13:00 SPR PACT 3 PA WH 07/05/2025 15:30 NHM OPTOMETRY 2 PM /es/ Dagmar Rowell Lead Side Panel Hanger Signed: 10/05/2024 09:32 Receipt Acknowledged By: * AWAITING SIGNATURE * PARMENTIER,GABINO S 10/05/2024 ADDENDUM STATUS: COMPLETED [employer] Operator left voice message with daughter Michell, pt will cb to schedule appt /es/ GABINO LITTLE Advanced Side Panel Hanger Signed: 10/05/2024 10:17 10/05/2024 ADDENDUM STATUS: COMPLETED [...] scheduling an appt /es/ GABINO LITTLE Advanced Side Panel Hanger Signed: 10/05/2024 10:46 Receipt Acknowledged By: * AWAITING SIGNATURE * NATO PATRICIO 10/06/2024 ADDENDUM STATUS: COMPLETED i called spoke to pt is ok to stop empagliflozin is ok to just take tamsulosin may stop tolterodine /es/ RICHARD WATKINS PA-C STAFF PHYSICIAN HOOKER OFF Signed: 10/06/2024 09:51 NATO PATRICIO Oct 05, [...] scheduling an appt /es/ GABINO LITTLE Advanced Side Panel Hanger Signed: 10/05/2024 10:46 Receipt Acknowledged By: 10/06/2024 [...] - Upcoming Appointment: 11/09/2024 09:30 SPR [facility] OTHER SALES SUPPORT WORKER 1 12/16/2024 13:00 SPR PACT 3 PA WH 07/05/2025 15:30 NHM OPTOMETRY 2 PM /es/ Dagmar Rowell Lead Side Panel Hanger Signed: 10/05/2024 09:32 Receipt Acknowledged By: * AWAITING SIGNATURE * GABINO LITTLE 10/05/2024 ADDENDUM STATUS: COMPLETED [employer] Operator left voice message with daughter Michell, pt will cb to schedule appt /david/ GABINO LITTLE Advanced Side Panel Hanger Signed: 10/05/2024 10:17 10/06/2024 ADDENDUM STATUS: COMPLETED PCP--I do not see that this medication was previously prescribed, A1C is 5.0 on 05/17/24, no Dx of DM or CHF. Please advise. Thanks /es/ Nato Patricio, LENORA Registered Nurse (RN) Signed: 10/06/2024 08:44 Receipt Acknowledged By: 10/06/2024 09:55 /david/ RICHARD WATKINS PA-C STAFF PHYSICIAN HOOKER OFF 10/06/2024 ADDENDUM STATUS: COMPLETED i called spoke to pt is ok to stop empagliflozin is ok to just take tamsulosin may stop tolterodine /david/ RICHARD WATKINS PA-C STAFF PHYSICIAN HOOKER OFF Signed: 10/06/2024 09:51 GABINO LITTLE Oct 05, [...] 10/15/2024 PM Action taken: (X) Message to [facility] for scheduling PATIENT PHONE - PHONE NUMBER [CELLULAR] - Upcoming Appointment: 11/09/2024 09:30 SPR [facility] OTHER SALES SUPPORT WORKER 1 12/16/2024 13:00 SPR PACT 3 PA WH 07/05/2025 15:30 NHM OPTOMETRY 2 PM /david/ Dagmar Rowell Lead Side Panel Hanger Signed: 10/05/2024 09:32 Receipt Acknowledged By: 10/08/2024 14:15 /david/ GABINO LITTLE Advanced Side Panel Hanger 10/05/2024 ADDENDUM STATUS: COMPLETED [employer] Operator left voice message with daughter Michell, pt will cb to schedule appt /david/ GABINO LITTLE Advanced Side Panel Hanger Signed: 10/05/2024 10:17 10/05/2024 ADDENDUM STATUS: COMPLETED [...] scheduling an appt /es/ GABINO LITTLE Advanced Side Panel Hanger Signed: 10/05/2024 10:46 Receipt Acknowledged By: 10/06/2024 [...] 09:55 /david/ RICHARD WATKINS PA-C STAFF PHYSICIAN HOOKER OFF 10/06/2024 ADDENDUM STATUS: COMPLETED i called spoke to pt is ok to stop empagliflozin is ok to just take tamsulosin may stop tolterodine /david/ RICHARD WATKINS PA-C STAFF PHYSICIAN HOOKER OFF Signed: 10/06/2024 09:51 DAGMAR ROWELL Sep 17, [...] standard clinical care, and in accordance with [facility] policy. Patient information was shared with the PDMP Appriss [place]. The [facility] prescriber, for which I am a delegate, will be alerted of these PDMP findings through co-signature of this progress note. No prescription(s) for controlled substances outside the [facility] were found in the last 90 days. /jos Patricio RN Registered Nurse (RN) Signed: 09/17/2024 08:25 /david/ RICHARD WATKINS PA-C STAFF PHYSICIAN HOOKER OFF Cosigned: 09/17/2024 08:32 NATO PATRICIO Aug 04, [...] PRACTICAL NURSE Signed: 08/04/2024 10:15 MAGDALENA CORTEZ [place] Aug 04, 2024 10:00 AM PHYSICIAN ASSISTAN T NOTE: LOCAL TITLE: PA NOTE STANDARD TITLE: PHYSICIAN HOOKER OFF NOTE DATE OF NOTE: AUG 04, 2024@10:00 [...] provider. /david/ RICHARD WATKINS PA-C STAFF PHYSICIAN HOOKER OFF Signed: 08/04/2024 10:28 RICHARD WATKINS
--- OUTSIDE RECORDS SUMMARY | 2024-10-29 14:05 | XMS_ITS | Encounter Summary ---
Author Name [facility] [place] Address [address] [place] [address] Care Team Providers Care Pricing Coordinator Name Role Phone RICHARD OTOOLE Primary Care [...] Ascencio's Name Patient's Relationship to Policy Ascencio [facility] MEDICAID MEDICAID [facility] HUMAN [facility] Jul 21, 2020 [id number] MARITZA POZO PATIENT [facility] MEDICAID [place] DEPT HUMAN [facility] Jul 21, 2020 [id number] MARITZA POZO PATIENT MEDICAID MEDICAID [facility] [place] Jul 21, 2012 MEDICAI D [id number] MARITZA POZO PATIENT MEDICARE (WNR) MEDICARE (M) PART A Mar 21, 1997 PART A [id number] MARITZA POZO PATIENT MEDICARE (WNR) MEDICARE (M) PART B Mar 21, 1997 PART B [id number] [phone] MARITZA POZO PATIENT MEDICARE (WNR) MEDICARE (M) PART A Mar 21, 1997 PART A [id number] [id number] MARITZA POZO PATIENT MEDICARE (WNR) MEDICARE (M) PART B Mar 21, 1997 PART B [id number] MARITZA POZO PATIENT MEDICARE (WNR) MEDICARE (M) PART A Mar 21, 1997 PART A [id number] MARITZA POZO PATIENT MEDICARE (WNR) MEDICARE (M) PART B Mar 21, 1997 PART B [id number] [phone] MARITZA POZO PATIENT MEDICARE (WNR) MEDICARE (M) PART B Mar 21, 1997 PART B [id number] MARITZA POZO PATIENT MEDICARE (WNR) MEDICARE (M) PART B Mar 21, 1997 PART B [id number] MARITZA POZO PATIENT MEDICARE (WNR) MEDICARE (M) PART A Mar 21, 1997 PART A [id number] MARITZA POZO PATIENT Selected Encounter This section includes the information on record at [place] for the Encounter. Date/Time Encounter Type Encounter Description Reason Pro vider Source Sep 23, 2024 06:52 PM Outpatient Encounter ADMIN PAT ACTIVTIES (MASNONCT) IHE Encounter Template Text not used by [place] Plan of Treatment: Future Appointments (+ 6 months) and Future Tests (+/- 45 days) The Plan of Treatment section includes future care activities for the patient from all [place] treatmentfacilities. This section includes future appointments and future orders which are active, pending or scheduled. Future Appointments This section includes appointments that were scheduled to occur 6 months from the date of the Encounter, up to a maximum of 20 appointments. The data comes from all [place] treatment facilities. Appointment Date/Time Appointment Type Appointme nt Facility Name Nov 09, 2024 09:30 AM AMBULATORY - PSYCHIATRY [facility] December 16, 2024 01:00 PM AMBULATORY - MEDICINE [facility] Social History: Smoking Status (Most current) and Tobacco Use (All prior to encounter date) This section includes the most current, and the historical, smoking and tobacco- related health factors from the [place] facility where the Encounter took place. Current Smoking Status This section includes the most current smoking, or tobacco-related health factor, from the [place] facility where the Encounter took place. Date/Time Current Smoking Status Comment [place] Mar 23, 2021 09:02 AM VA-TOBACCO FORMER USER [facility] Tobacco Use History This section includes a history of the smoking, or tobacco-related health factors, that were collected on or before the date of the Encounter. The data comes from the [place] facility where the Encounter took place. Date/Time Smoking Status/Tobacco Use Comment [place] Mar 23, 2021 09:02 AM [place]-TOBACCO QUIT 5 TO < 15 YRS [facility] Encounter Notes: All associated encounter notes This section contains the clinical notes associated to the Encounter. Date/Time Encounter Note(s) Provider Source Sep 23, 2024 06:52 PM PHARMACY NOTE: LOCAL TITLE: PHARMACY CUSTOMER CARE MEDICATION RENEWAL STANDARD TITLE: PHARMACY NOTE DATE OF NOTE: SEP 23, 2024@18:52 ENTRY DATE: SEP 23, 2024@18:52:26 AUTHOR: BARRY WARREN I EXP COSIGNER: URGENCY: STATUS: COMPLETED Date: Sep Division: [place] Pt referred by Pharmacy Call Center for medication renewal: Non-controlled/maintenanc e medication Medications requested: [id number] EMPAGLIFLOZIN 10MG TAB Defer to primary care provider To be mailed . Please review and renew if appropriate. *This note was generated by [facility] Customer Care. If you have any questions or need assistance, do not contact this author. Please refer all questions to your local, on-site pharmacy departments. /david/ Barry Warren CPhT [employer], [place]/Pharmacy Customer Care Signed: 09/23/2024 18:53 Receipt Acknowledged By: 09/24/2024 08:05 /david/ Mulu Cole RN Registered Nurse (RN) 09/24/2024 08:20 /david/ RICHARD OTOOLE PA-C STAFF PHYSICIAN CERTIFIED NUTRITIONIST BARRY WARREN I [facility]
--- OUTSIDE RECORDS SUMMARY | 2024-10-29 14:05 | XMS_ITS | Clinical Summary ---
Author Organization 175 [facility] Address [address] [place] [address] Phone Care Team Providers Care Nurse Clinical Name Role Phone Jovany Watkins Primary Care Provider [phone] Allergies Active Allergy Reactions Criticality Noted Date [...] 6 Neuropathy 08/10/2015 Overview (08/03/2024): Both legs. Stites to be spinal stenosis and neuropathy Vitamin D deficiency 11/23/2014 Hypercholesteremia 09/13/2014 Spinal stenosis 12/10/2013 Overview (08/03/2024): [facility] Multilevel degenerative changes with spinal canal stenosis, most severe L4-5. Similar to 2013 Obesity, unspecified 12/11/2012 Encounters Date Type Department Care Team Description 08/18/2024 8:19 AM EST - 08/18/2024 11:59 PM EST Hospital Encounter [facility] [address] [place] [id number] Gastroesophageal reflux disease, unspecified whether esophagitis present Discharge Disposition: Home or Self Care 08/16/2024 9:20 AM EST Consult Gastroenterology - [place] 175 [facility] [address] [phone] Mishel Chang PA Gastroesophageal reflux disease, unspecified whether esophagitis present (Primary Dx) 08/11/2024 Telephone Gastroenterology [facility] 175 [facility] [address] [phone] Madiha Humphreys MD Appointment from Last 3 [...] 10:30 AM EDT Office Visit Gastroenterology - [place] [address] [place] [phone] Mishel Chang PA [address] [place] [address] Health Maintenance Due Date Last Done Comments [...] age to complete this topic Meningococcal B Vaccine Aged Out No l onger eligible based on patient's age to complete [...] Signed Date: 08/18/2024 12:02 ET Workstation ID: [id number] Transcribed By: Self Edit Transcribed Date: 08/18/2024 [...] Signed Date: 08/18/2024 12:02 ET Workstation ID: [id number] Transcribed By: Self Edit Transcribed Date: 08/18/2024 [...] Most Recently Relevant to Health Maintenance Insurance [facility] Care Teams Nurse Clinical Relationship Specialty Start Date End Date Jovany Watkins PA [address] [place] [phone] PCP - General Internal Medicine 08/11/24
== END 2024-10-29 15:07 | disposition home or self-care (01) ==
LOC: HO.HMCFM 13:44
PROVIDERS: PCP Nurse Practitioner Family; Visit Provider Nurse Practitioner Family
DX: E78.00 Pure hypercholesterolemia, unspecified (principal); D64.9 Anemia, unspecified

== ENCOUNTER → 2024-10-29 13:43 | Outpatient (BNVA) | payer MEDICARE, MEDICAID, SELFPAY | PROVIDERS: PCP Nurse Practitioner Family; Visit Provider Nurse Practitioner Family | DX: Z13.89 Encounter for screening for other disorder (principal) ==

== ENCOUNTER 2025-01-26 07:44 | Outpatient (REF) | payer MEDICARE, MEDICAID, SELFPAY ==
--- OUTSIDE RECORDS SUMMARY | 2025-01-26 07:46 | XMS_ITS | Clinical Summary ---
Author Organization 175 [facility] Address [address] [place] [address] Phone Care Team Providers Care Colon And Rectal Surgeon Name Role Phone Jovany Watkins Primary Care Provider [phone] Allergies Active Allergy Reactions Criticality Noted Date [...] Active esomeprazole (NexIUM) [address] capsule TAKE 1 CAPSULE BY MOUTH 1 TIME EACH DAY BEFORE BREAKFAST. DO NOT OPEN CAPSULE. 90 capsule 1 11/11/2024 Active Active Problems Problem Noted Date Diagnosed Date GERD (gastroesophageal reflux disease) 6 Neuropathy 08/10/2015 Overview (08/03/2024): Both legs. Zamora to be spinal stenosis and neuropathy Vitamin D deficiency 11/23/2014 Hypercholesteremia 09/13/2014 Spinal stenosis 12/10/2013 Overview (08/03/2024): [facility] Multilevel degenerative changes with spinal canal stenosis, most severe L4-5. Similar to 2013 Obesity, unspecified 12/11/2012 Social History Tobacco Use [...] 08/16/2024 9:15 AM EST Plan of Treatment Health Maintenance Due Date Last Done Comments RSV Immunization Adult Patients (1 - 1-dose 75+ series) 2022 Cholesterol Screening (Lipid Panel) 06/18/2022 08/10/2015 Depression Screening 06/18/2022 Falls Risk Assessment 06/18/2022 Hepatitis C Screening 06/18/2022 Lung Cancer Screening (Low Dose CT) 06/18/2022 Social Influencers of Health Screening 06/18/2022 COVID-19 Vaccine ( season) 2024 04/21/2024, 04/05/2023, 04/29/2022, Additional history exists Influenza Vaccine (#1) 2025 4, 04/21/2024, 04/20/2023, Additional history exists DTaP,Tdap,and Td Vaccines (4 - Td or Tdap) 03/23/2031 03/23/2021, 02/04/2011, 05/07/2006 Zoster Vaccines Completed 10/19/2021, 09/2020, 04/01/2012 Pneumococcal Vaccine: 50+ Years Completed 01/23/2022, 06/20/2015, 06/08/2013 HIB Vaccines Aged Out No longer eligi [...] Procedure Name Priority Date/Time Associated Diagnosis Comments LIPID PANEL Routine 08/10/2015 from Last 3 Months or Most Recently Relevant to Health Maintenance Results * (ABNORMAL) Lipid panel (08/10/2015) LDL/HDL Ratio 5(A) 0 - 4 Triglycerides 334(A) 0 - 150 mg/dL Cholesterol 199(A) 0 - 0 mg/dL HDL 44 >=40 mg/dL LDL Cholesterol 89 0 - 100 mg/dL Blood Venous blood specimen / Unknown Historical Provider LAB BLOOD ORDERABLES Tammy l Result from Last 3 Months or Most Recently Relevant to Health Maintenance [facility] [id number] [facility] Care Teams Colon And Rectal Surgeon Relationship Specialty Start Date End Date Jovany Watkins PA [address] [place] [phone] PCP - General Internal Medicine 08/11/24
[2025-01-26 11:52] LABS: Cholesterol 165 mg/dL (<200); HDL Cholesterol 40 mg/dL (>40); Triglycerides 212 mg/dL (<150)
== END 2025-01-26 07:45 | disposition home or self-care (01) ==
LOC: HO.WFDLDS 07:44
PROVIDERS: Visit Provider Nurse Practitioner Family
DX: E78.00 Pure hypercholesterolemia, unspecified (principal)
CPT/HCPCS: 36415; 80061

== ENCOUNTER 2025-01-31 12:39 | Outpatient (AMB) | payer MEDICARE, MEDICAID, SELFPAY ==
--- NOTE | 2025-01-31 12:34 | MHC.PC.OV ---
Intake Visit Reasons: 3 mos telehealth, HLD Intake Note: patient here for 3 month Telehealth follow up on HLD Turn Machine Operator Required: No Allergies latex Allergy (Intermediate, Verified 01/31/25 12:34) Rash Penicillins Allergy (Intermediate, Verified 01/31/25 12:34) Swelling Tobacco use date assessed: 01/31/25 Fall risk assessment: 2 + Falls in past year Last assessed Fall Risk: 01/31/25 Dental Screening Dental Screen Date: 01/31/25 Did you have a dental visit in the last 12 months?: Yes Did you have a dental problem in the last 6 months where you did not have access to dental care?: No Was dental information given to patient?: Patient has dentist HPI HPI Comments History of Present Illness Details 79-year-old male presents for telehealth visit for hyperlipidemia follow-up. He admits to taking his medications as prescribed without adverse reactions. He notes that he was told he has borderline anemia and therefore has been eating significant amount of roast beef. He notes that he has been making healthy dietary choices and exercising routinely. He offers no complaints and denies acute symptoms at this time. FORMERLY [facility], [facility] Medical History (Updated 10/07/24 @ 15:08 by Denver Mckinley CNP) Brain aneurysm Depression Anxiety Imbalance Neuropathy Enlarged prostate Acid reflux Back disorder High cholesterol Sinusitis Surgical History (Updated 10/06/24 @ 14:10 by Denver Mckinley CNP) Status post ORIF of fracture of ankle History of repair of left rotator cuff History of repair of right rotator cuff History of laminectomy Family History (Updated 10/06/24 @ 12:55 by Erika Chicas MA) Paternal Grandfather Alcohol abuse Maternal Grandfather Suicide Social History Housing: House Patient Tobacco Use Status: Former Tobacco user Cigarette Packs Per Day: 0.5 Cigarettes Per Day: 10 Years Smoked: 15 e-Cigarette/Vaping Use: Never Used Second Hand Smoke Exposure: No service: No Current occupational status: disabled Current occupational exposures/hazards: No Cognitive needs: Yes (cane) Hearing needs: No Vision needs: Yes Questionnaire Thrive Questionnaire Date Thrive assessed: 10/05/24 TUAN-7 AMB Questionnaire TUAN-7 Date TUAN - 7 assessed: 10/06/24 Source: Developed by Drs. Orlando Bowen, Dorys Monae, Luan Bonilla and colleagues, with an educational josé miguel from [employer]. Review of Systems Const Details: Denies chills, Denies fatigue, Denies fever(s), Denies headache(s) and Denies weakness Cardiac Denies chest pain, Denies claudication, Denies leg edema, Denies lightheadedness, Denies palpitations, Denies dyspnea, Denies dyspnea on exertion, Denies orthopnea and Denies other (Loss of consciousness) Resp Denies cough, Denies excessive phlegm production, Denies dyspnea, Denies dyspnea on exertion, Denies snoring and Denies wheezing Physical exam (Primary Care) Tobacco/Smoking Status: Tobacco use Status Tobacco use date assessed 01/31/25 01/31/25 12:37 Patient Tobacco Use Status Former Tobacco user 01/31/25 12:37 e-Cigarette/Vaping Use Never Used 01/31/25 12:37 Thrive Assessment: Date of Thrive Assessment Date Thrive assessed 10/05/24 01/31/25 12:37 Const Other: Patient is alert and oriented x3. Telehealth Telehealth Telehealth Platform: Telephone Location of provider rendering services: practice address Location of patient: address on file Patient Identification confirmed using: Name, : Yes Telehealth method: voice only Patient verbally consented to treatment: Yes Patient verbally consented to billing insurance company: Yes Patient informed of any privacy concerns related to visit: Yes Coding Level of Care Code Tele Est Pt Level 3 (99051) Diagnoses High cholesterol E78.00 Time Spent (min) 10 Assessment & Plan Assessment & Plan (1) High cholesterol: Code(s): E78.00 - Pure hypercholesterolemia, unspecified Category: Medical Plan: Recent triglycerides is 212, previous level was 119, HDL is 40 from 37, total cholesterol and LDL levels are normal. Continue current treatment regimen. Advised to limit foods high in saturated fat, including Zoya beef, and avoid foods high in trans fat. Routine exercise encouraged. Informed that he has mild anemia, likely due to chronic disease; recent iron studies, vitamin B12 and folate levels were normal. Fast for 10-12 hours, may drink water, and perform lipid panel blood work 2-3 days before next visit. Orders: Orders Lipid Panel 2 Months E78.00 - Pure hypercholesterolemia, unspecified
== END 2025-01-31 14:55 | disposition home or self-care (01) ==
LOC: HO.HMCFM 12:39
PROVIDERS: PCP Nurse Practitioner Family; Visit Provider Nurse Practitioner Family
DX: E78.00 Pure hypercholesterolemia, unspecified (principal)

== ENCOUNTER 2025-03-31 07:35 | Outpatient (REF) | payer MEDICARE, MEDICAID, SELFPAY ==
--- OUTSIDE RECORDS SUMMARY | 2012-12-12 | XMS_ITS | Encounter Summary ---
Author Organization [facility] Address [address] [place] [address] Phone Care Team Providers Care Drapery Counselor Name Role Phone Unavailable Primary Care Provider Unavailabl e Encounter Details Date Type Department Care Team (Late st Contact Info) Description 12/12/2012 Hospital Encounter [facility] [address] [place] [address] Jovany Bailey MD [address] [place] [address] [email or web address] Social History Tobacco Use Types Packs/Day Years [...] (No Interpretation) (12/12/2012 12:00 AM EDT) Narrative [facility] [place] [facility]G INTERFACES - 03/11/2016 2:16 PM EDT This study is for PACS storage only and not for interpretation. Procedure Note SYSTEMGENERATED, DOCUMENTATION - 03/11/2016 This study is for PACS storage only and not for interpretation. us Jovany Bailey MD IMG OUTSIDE IMAGING W/OUT INTE RPRETATION Final Result [facility] INTERFACES documented in this encounter Visit Diagnoses Not on filedocumented in this encounter Additional Source Comments The information contained in this document represents components of the legal health record. It is not the complete legal health record.[facility]
--- OUTSIDE RECORDS SUMMARY | 2013-12-11 | XMS_ITS | Encounter Summary ---
Author Organization [facility] Address [address] [place] [address] Phone Care Team Providers Care Health Systems Analyst Name Role Phone Unavailable Primary Care Provider Unavailabl e Encounter Details Date Type Department Care Team (Late st Contact Info) Description 12/11/2013 Hospital Encounter [facility] [address] [place] [address] Jovany Bailey MD [address] [place] [address] [email or web address] Social History Tobacco Use Types Packs/Day Years [...] SPINE NEUROLOGIC FOCUS OUTSIDE (NO INTERPRETATION) Routine 12/11/2013 12:00 AM EDT documented in this encounter Results * MRI Spine (Neuro) Outside (No Interpretation) (12/11/2013 12:00 AM EDT) Narrative [facility] [place] [facility]G INTERFACES - 03/11/2016 2:15 PM EDT This study is for PACS storage only and not for interpretation. Procedure Note SYSTEMGENERATED, DOCUMENTATION - 03/11/2016 This study is for PACS storage only and not for interpretation. us Jovany Bailey MD IMG OUTSIDE IMAGING W/OUT INTE RPRETATION Final Result [facility] INTERFACES documented in this encounter Visit Diagnoses Not on filedocumented in this encounter Additional Source Comments The information contained in this document represents components of the legal health record. It is not the complete legal health record.[facility]
--- OUTSIDE RECORDS SUMMARY | 2016-03-02 | XMS_ITS | Encounter Summary ---
Author Organization [facility] Address [address] [place] [phone] Phone Care Team Providers Care Fiscal Technician Name Role Phone Pcp, Not Required Primary Care Provider Unavaila ble Encounter Details Date Type Department Care Team (Late st Contact Info) Description 2016 Hospital Encounter [facility] [address] [place] [address] Jovany Bailey MD [address] [place] [address] [email or web address] Social History Tobacco Use Types [...] (No Interpretation) (2016 12:00 AM EDT) Narrative [facility] [place] [facility] INTERFACES - 04/05/2016 12:12 PM EDT This study is for PACS storage only and not for interpretation. Procedure Note SYSTEMGENERATED, DOCUMENTATION - 04/05/2016 This study is for PACS storage only and not for interpretation. us Jovany Bailey MD IMG OUTSIDE IMAGING W/OUT INTE RPRETATION Final Result [facility] INTERFACES documented in this encounter Visit Diagnoses Not on filedocumented in this encounter Care Teams Fiscal Technician Relationship Specialty Start Date End Date Pcp, Not Required [address] [place] [id number] PCP - General 01/18/14 04/19/16 documented as of this encounter Additional Source Comments The information contained in this document represents components of the legal health record. It is not the complete legal health record.[facility]
--- OUTSIDE RECORDS SUMMARY | 2025-03-31 07:38 | XMS_ITS | Encounter Summary ---
Author Organization [facility] Address [address] [facility] [address] [place] [address] Phone Care Team Providers Care Specialty Therapist Name Role Phone Jovany Watkins Primary Care Provider +1- [phone] Reason for Referral * Consultation (Elective) - Closed Specialty Diagnoses / Procedures Referred By Contbetsey t Referred To Contact Neurology Diagnoses Polyneuropathy Layla Linn DO [address] [address] Phone: tel: Referral ID Status Reason Start Date Expiration Date Visits Re quested Visits Authorized [id number] Closed 04/16/2018 04/16/2019 1 1 Encounter Details Date Type Department Care Team (Late st Contact Info) Description 04/16/2018 Transcribe Orders [facility] Department of Neurology [address] [place] [address], [address] Floor, [address] [place] [address] Layla Linn DO Polyneuropathy Social History Tobacco Use Types Packs/Day Years Used Date Smoking Tobacco: Former Cigarettes Q uit: 04/16/2013 Smokeless Tobacco: Never Alcohol Use Standard Drinks/Week Comments No 0 (1 standard drink = 0.6 oz pur e alcohol) Sex and Gender Information Value Date Recorded Sex Assigned at Not on file Legal Sex Male 8:05 PM EST Gender Identity Not on file Sexual Orientation Not on file documented as of this encounter Functional Status * Patient is deaf or has serious difficulty with hearing Answer Date of Assessment Author No 04/22/2016 6:14 PM EDT Karely Hargrove PA-C * Patient is blind or has serious difficulty with seeing, even when wearing glasses Answer Date of Assessment Author No 04/22/2016 6:14 PM Karely Hodgson PA-C * Patient has serious difficulty walking or climbing stairs (5yr old or older) Answer Date of Assessment Author No 04/22/2016 6:14 PM Karely Hodgson PA-C * Patient has serious difficulty dressing or bathing (5yr old or older) Answer Date of Assessment Author No 04/22/2016 6:14 PM Karely Hodgson PA-C * Patient has serious difficulty doing errands alone such as visiting a doctor???s office or shopping, due to physical, mental, or emotional condition (15 years old or older) Answer Date of Assessment Author No 04/22/2016 6:14 PM Karely Hodgson PA-C documented as of this encounter Mental Status * Patient has serious difficulty concentrating, remembering, or making decisions due to physical, mental, or emotional condition Answer Entry Date Author No 04/22/2016 6:14 PM Karely Hodgson PA-C documented in this encounter Plan of Treatment Scheduled Referrals Name Type Priority Associated Diagnoses Order Schedule Ambulatory referral to [facility] Neurology Outpatient Referral Routine Polyneuropathy Ordered: 04/16/2018 documented as of this encounter Visit Diagnoses Diagnosis Polyneuropathy Unspecified hereditary and idiopathic peripheral neuropathy documented in this encounter Care Teams Specialty Therapist Relationship Specialty Start Date End Date Jovany Watkins PA PCP - General 04/20/16 documented as of this encounter Additional Source Comments The information contained in this document represents components of the legal health record. It is not the complete legal health record.[facility]
--- OUTSIDE RECORDS SUMMARY | 2025-03-31 07:38 | XMS_ITS | Clinical Summary ---
Author Organization [facility] Address [address] [facility] [address] [place] [address] Phone Care Team Providers Care Order Processor Name Role Phone Jovany Watkins Primary Care Provider +1- [phone] Allergies Active Allergy Reactions Criticality Noted Date Comments Latex, Natural Rubber Itching,Rash Low 04/16/2016 Penicillins Swelling High 04/16/2016 Medications omeprazole (PRILOSEC) 20 MG capsule Take 20 mg by mouth daily. Active atorvastatin (LIPITOR) 40 MG tablet Take 40 mg by mouth daily. Active cetirizine (ZYRTEC) 10 MG tablet Take 10 mg by mouth daily. Active FLUoxetine (PROZAC) 20 MG capsule Take 20 mg by mouth daily. Active senna (SENOKOT) 8.6 mg tablet Take 2 tablets by mouth 2 (two) times a day. 60 tablet 9 Active polyethylene glycol (MIRALAX) 17 gram packet Take 17 g by mouth 2 (two) times a day. 30 each 9 Active acetaminophen (TYLENOL) 325 mg tablet Take 2 tablets (650 mg total) by mouth every 6 (six) hours as needed for mild pain or fever. 0 9 Active bisacodyl (DULCOLAX) 5 mg EC tablet Take 1 tablet (5 mg total) by mouth daily as needed. 9 Active bisacodyl (DULCOLAX) [address] 1 suppository (10 mg total) rectally daily as needed (moderate constipation). 9 Active docusate sodium (COLACE) 100 MG capsule Take 1 capsule (100 mg total) by mouth 2 (two) times a day. 60 capsule 9 Active diazePAM (VALIUM) 5 MG tablet Take 1 tablet (5 mg total) by mouth every 6 (six) hours as needed. 28 tablet 9 Active oxyCODONE 5 MG immediate release tabletIndication s:Spondylolisthe sis, lumbar region Take 1 tablet (5 mg total) by mouth every 4 (four) hours as needed for moderate pain (postop). Partial fill ok. 30 tablet 9 Active Active Problems Problem Noted Date Diagnosed Date Lumbar stenosis with neurogenic claudication 07/2018 Spinal stenosis 10/19/2018 Lumbar spinal stenosis 04/22/2016 Immunizations Immunization Administration Dates Next Due Pneumococcal conjugate PCV13 10/20/2018(Deferred : Patient Refused) Social History Tobacco Use Types Packs/Day Years [...] on file Sexual Orientation Not on file Last Filed Vital Signs Vital Sign Reading Time Taken Comments Blood Pressure 92/53 10/22/2018 11:21 AM EDT Pulse 58 10/22/2018 11:21 AM EDT Temperature 37.7 C (99.9 F) 10/22/2018 11:21 AM EDT Respiratory Rate 18 10/22/2018 11:21 AM EDT Oxygen Saturation 95% 10/22/2018 11:21 AM EDT Inhaled Oxygen Concentration - - Weight 83.5 kg (184 lb) 10/20/2018 3:58 PM EDT Height 175.3 cm (5' 9 ) 10/20/2018 3:58 PM EDT Body Mass Index 27.17 10/20/2018 3:58 PM EDT Plan of Treatment Health Maintenance Due Date Last Done Comments LIPID PANEL 1945 DEPRESSION SCREENING 1959 SMOKING Hx and SMOKELESS TOBACCO SCREENING 1960 HEPATITIS C SCREENING 1965 RSV VACCINE (1 - 1-dose 75+ series) 2022 COVID-19 VACCINE ( season) 2024 05/23/2021, 09/27/2020, 08/30/2020 INFLUENZA VACCINE (#1) 2025 , 04/06/2021, 04/20/2020, Additional history exists Adult Td,Tdap Booster 03/23/2031 03/23/2021, 006 ZOSTER VACCINES Completed 10/19/2021, 09/2020, 04/01/2012 PNEUMOCOCCAL VACCINES (50+ years) Completed 01/23/2022, 06/20/2015 HEPATITIS A VACCINES Aged Out No long er eligible based on patient's age to complete this topic HIB VACCINES Aged Out No longer eligi ble based on patient's age to complete this topic MENINGOCOCCAL VACCINES (ACWY) Aged Out No longer eligible based on patient's age to complete this topic MENINGOCOCCAL VACCINES (B) Aged Out N o longer eligible based on patient's age to complete this topic Medical Devices Implanted Type Area Biology Manager Device Identifier Shelf Expiration Date Model / Serial / Lot Modulus Tlif-O [id number] Implanted:Qty: 1 on 10/19/2018 by Jovany Bailey MD at [facility] N/A: Spine Lumbar [employer] 03/30/2023 [id number] / / [id number] Left Ankle Hardware Screw Spine Titanium Polyaxial Pk/2ea - [id number] Implanted:Qty: 2 on 10/19/2018 by Jovany Baiely MD at N/A: Spine Lumbar [employer] [id number] / / Screw Spine 6mm Reline Locking - [id number] Implanted:Qty: 4 on 10/19/2018 by Jovany Bailey MD at N/A: Spine Lumbar [employer] [id number] / / Spine Zhou 45x5.5mm Reline Titanium Lordotic - [id number] Implanted:Qty: 2 on 10/19/2018 by Jovany Bailey MD at N/A: Spine Lumbar [employer] [id number] / / [place] [facility] [place] [facility] [address] [place] [address] [place] [id number] MEDICARE RAILROAD [facility] MEDICARE RAILROAD [facility] [place] [facility] [place] [facility] [address] [place] [address] MEDICARE RAILROAD [facility] [address] [place], [place] [address]HEALTH MEDICARE RAILROAD [facility] [place] [facility] Advance Directives For more information, please contact: [phone] (9AM - 5PM 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 It is not the complete legal health record.[facility]
--- OUTSIDE RECORDS SUMMARY | 2025-03-31 07:38 | XMS_ITS | Encounter Summary ---
Author Organization [employer] [facility] Address [address] [facility] [address] [place] [address] Phone Care Team Providers Care Form Setter Supervisor Name Role Phone Jovany Watkins Primary Care Provider +1- [phone] Encounter Details Date Type Department Care Team (Late st Contact Info) Description 09/18/2017 Procedure Pass [employer] [facility] General Imaging [address] [place] [address] Social History Tobacco Use Types Packs/Day Years [...] 6:14 PM Karely Hodgson PA-C * Patient is blind or has [...] of Assessment Author No 04/22/2016 6:14 PM Rickey Hodgson PA-C documented as of this encounter Mental Status * Patient has serious difficulty concentrating, remembering, or making decisions due to physical, mental, or emotional condition Answer Entry Date Author No 04/22/2016 6:14 PM Karely Hodgson PA-C documented in this encounter Plan of Treatment Not on file documented as of this encounter Visit Diagnoses Not on filedocumented in this encounter Care Teams Form Setter Supervisor Relationship Specialty Start Date End Date Jovany Watkins PA PCP - General 04/20/16 documented as of this encounter Additional Source Comments The information contained in this document represents components of the legal health record. It is not the complete legal health record.[facility]
--- OUTSIDE RECORDS SUMMARY | 2025-03-31 07:38 | XMS_ITS | Encounter Summary ---
Author Organization [facility] Address [address] [place] [address] [place] [address] Phone Care Team Providers Care Test Facility Engineer Name Role Phone Jovany Watkins Primary Care Provider +1- [phone] Encounter Details Date Type Department Care Team (Late st Contact Info) Description 09/16/2018 Procedure Pass [facility] [address] [place] [phone] Social History Tobacco Use Types Packs/Day Years [...] on filedocumented in this encounter Care Teams Test Facility Engineer Relationship Specialty Start Date End Date Jovany Watkins PA PCP - General 04/20/16 documented as of this encounter Additional Source Comments The information contained in this document represents components of the legal health record. It is not the complete legal health record.[facility]
--- OUTSIDE RECORDS SUMMARY | 2025-03-31 07:38 | XMS_ITS | Encounter Summary ---
Author Organization [facility] Address [address] [place] [address] [place] [address] Phone Care Team Providers Care Proof Coin Collector Name Role Phone Jovany Watkins Primary Care Provider +1- [phone] Encounter Details Date Type Department Care Team (Late st Contact Info) Description 10/19/2018 Procedure Pass [facility] PER[facility]IVE DEPT [address] [place] [id number] Social History Tobacco Use Types Packs/Day Years Used Date Smoking Tobacco: Former Cigarettes Q uit: 04/16/2013 Smokeless Tobacco: Current Comments:Using E-cigarettes/ vaping Alcohol Use Standard Drinks/Week [...] on filedocumented in this encounter Care Teams Proof Coin Collector Relationship Specialty Start Date End Date Jovany Watkins PA PCP - General 04/20/16 documented as of this encounter Additional Source Comments The information contained in this document represents components of the legal health record. It is not the complete legal health record.[facility]
--- OUTSIDE RECORDS SUMMARY | 2025-03-31 07:38 | XMS_ITS | Encounter Summary ---
Author Organization [employer] [facility] Address [address] [facility] [address] [place] [address] Phone Care Team Providers Care Customer Service Advocate Name Role Phone Jovany Watkins Primary Care Provider +1- [phone] Encounter Details Date Type Department Care Team (Late st Contact Info) Description 09/01/2017 Procedure Pass [employer] General Imaging [address] [place] [address] Social History Tobacco Use Types Packs/Day Years [...] on filedocumented in this encounter Care Teams Customer Service Advocate Relationship Specialty Start Date End Date Jovany Watkins PA PCP - General 04/20/16 documented as of this encounter Additional Source Comments The information contained in this document represents components of the legal health record. It is not the complete legal health record.[facility]
--- OUTSIDE RECORDS SUMMARY | 2025-03-31 07:38 | XMS_ITS | Encounter Summary ---
Author Organization [facility] Address [address] [place] [address] [place] [address] Phone Care Team Providers Care Stove Tender Name Role Phone Jovany Watkins Primary Care Provider +1- [phone] Encounter Details Date Type Department Care Team (Late st Contact Info) Description 10/27/2017 Procedure Pass [facility] PERIOPERATIVE DEPT [address] [place] [phone] Social History Tobacco Use Types Packs/Day Years [...] on filedocumented in this encounter Care Teams Stove Tender Relationship Specialty Start Date End Date Jovany Watkins PA PCP - General 04/20/16 documented as of this encounter Additional Source Comments The information contained in this document represents components of the legal health record. It is not the complete legal health record.[facility]
--- OUTSIDE RECORDS SUMMARY | 2025-03-31 07:38 | XMS_ITS | Clinical Summary ---
Author Organization [address] [facility] Address [address] [place] [address] Phone Care Team Providers Care District Director Name Role Phone Jovany Watkins Primary Care Provider Allergies Active Allergy Reactions Criticality Noted Date Comments Latex 12/10/2012 Latex, Natural Rubber Itching,Rash Low 04/16/2016 Penicillin G 12/10/2012 Penicillin G Benzathine 09/01/2020 Penicillins Swelling High 01/28/2000 Medications omeprazole (PriLOSEC) [address] capsule [...] OPEN CAPSULE. 90 capsule 1 11/11/2024 Active predniSONE (DELTASONE) 20 mg tablet 3 tablets x 3 days; 2 tablets x 3 days; 1 tablet x 3 days 18 tablet 01/27/2025 Active Active Problems Problem Noted Date Diagnosed Date GERD (gastroesophageal reflux disease) 6 Neuropathy 08/10/2015 Overview (08/03/2024): Both legs. [place] to be spinal stenosis and neuropathy Vitamin D deficiency 11/23/2014 Hypercholesteremia 09/13/2014 Spinal stenosis 12/10/2013 Overview (08/03/2024): [facility]. Multilevel degenerative changes with spinal canal stenosis, most severe L4-5. Similar to 2013 Obesity, unspecified 12/11/2012 Encounters Date Type Department Care Team Description 01/27/2025 10:25 AM EDT - 01/27/2025 11:43 AM EDT Emergency [facility] Emergency [address] [place] [address] Allergic reaction, initial encounter (Primary Dx) Discharge Disposition: Home or Self Care from Last 3 Months Social History Tobacco Use Types Packs/Day Years Used Date Smoking Tobacco: Never Assessed Sex and Gender Information Value Date Recorded Sex Assigned at Male 08/17/2024 3:27 PM EST Legal Sex Male 1:11 PM EST Gender Identity Male 08/17/2024 3:27 PM EST Sexual Orientation Straight 08/17/2024 3: 27 PM EST Obstetrics History Last Filed Vital Signs Vital Sign Reading Time Taken Comments Blood Pressure 133/84 01/27/2025 9:50 AM EDT Pulse 57 01/27/2025 9:50 AM EDT Temperature 36.8 C (98.2 F) 01/27/2025 9:50 AM EDT Respiratory Rate 16 01/27/2025 9:50 AM EDT Oxygen Saturation 98% 01/27/2025 9:50 AM EDT Inhaled Oxygen Concentration - - Weight 83.9 kg (185 lb) 01/27/2025 9:50 AM EDT Height 175.3 cm (5' 9 ) 01/27/2025 9:50 AM EDT Body Mass Index 27.32 01/27/2025 9:50 AM EDT Plan of Treatment Health Maintenance Due Date Last Done Comments RSV Immunization Adult Patients (1 - 1-dose 75+ series) 2022 Cholesterol Screening (Lipid Panel) 06/18/2022 08/10/2015 Falls Risk Assessment 06/18/2022 Hepatitis C Screening 06/18/2022 Lung Cancer Screening (Low Dose CT) 06/18/2022 Social Influencers of Health Screening 06/18/2022 Depression Screening 07/21/2024 COVID-19 Vaccine ( season) 2025 04/21/2024, 04/05/2023, 04/29/2022, Additional history exists Influenza Vaccine (#1) 2025 , 04/21/2024, 04/20/2023, Additional history exists DTaP,Tdap,and Td Vaccines (5 - Td or Tdap) 10/11/2034 10/11/2024, 03/23/2021, 02/04/2011, Additional history exists Zoster Vaccines Completed 10/19/2021, 09/2020, 04/01/2012 Pneumococcal [...] mg/dL Blood Venous blood specimen / Unknown [facility] Provider LAB BLOOD ORDERABLES Tammy l Result from Last 3 Months or Most Recently Relevant to Health Maintenance Insurance [facility] Care Teams District Director Relationship Specialty Start Date End Date Jovany Watkins PA [address] [place] [phone] PCP - General Internal Medicine 08/11/24
--- OUTSIDE RECORDS SUMMARY | 2025-03-31 07:38 | XMS_ITS | Encounter Summary ---
Author Organization [facility] [facility] Address [address] [facility] [address] [place] [address] Phone Care Team Providers Care Timber Management Technician Name Role Phone Jovany Watkins Primary Care Provider +1- [phone] Encounter Details Date Type Department Care Team (Late st Contact Info) Description 10/07/2018 Procedure Pass [facility] General Imaging [address] [place] [address] Social History Tobacco Use Types Packs/Day Years [...] on filedocumented in this encounter Care Teams Timber Management Technician Relationship Specialty Start Date End Date Jovany Watkins PA PCP - General 04/20/16 documented as of this encounter Additional Source Comments The information contained in this document represents components of the legal health record. It is not the complete legal health record.[facility]
[2025-03-31 11:57] LABS: Cholesterol 147 mg/dL (<200); HDL Cholesterol 39 mg/dL (>40); Triglycerides 130 mg/dL (<150)
== END 2025-03-31 07:36 | disposition home or self-care (01) ==
LOC: HO.WFDLDS 07:35
PROVIDERS: Visit Provider Nurse Practitioner Family
DX: E78.00 Pure hypercholesterolemia, unspecified (principal)
CPT/HCPCS: 36415; 80061

== ENCOUNTER 2025-04-05 14:07 | Outpatient (AMB) | payer MEDICARE, MEDICAID, SELFPAY ==
--- OUTSIDE RECORDS SUMMARY | 2012-12-12 | XMS_ITS | Encounter Summary ---
Author Organization [facility] Address [address] [place] [address] Phone Care Team Providers Care Regulator Inspector Name Role Phone Unavailable Primary Care Provider Unavailabl e Encounter Details Date Type Department Care Team (Late st Contact Info) Description 12/12/2012 [facility] Encounter [facility] [address] [place] [address] Jovany Bailey MD [address] [place] [address] [email or web address] Social History Tobacco Use Types Packs/Day Years Used Date Smoking Tobacco: Former Cigarettes Q uit: 04/16/2013 Smokeless Tobacco: Former Quit: 09/19/2012 Comments:Using E-cigarettes/ vaping Alcohol Use Standard Drinks/Week Comments No 0 (1 standard drink = 0.6 oz pur e alcohol) Education Answer Date Recorded Are you interested in more education? Not on kerry e 11/14/2022 Are you concerned about learning? Not on file 11/14/2022 No 11/14/2022 No 11/14/2022 Digital Access Answer Date Recorded No 12/15/2022 No 12/15/2022 No 12/15/2022 Reliable internet access at home? Not on file 12/15/2022 Device with a working camera? Not on file Sex and Gender Information Value Date Recorded Sex Assigned at Not on file Legal Sex Male 8:05 PM EST Gender Identity Not on file Sexual Orientation Not on file documented as of this encounter Plan of Treatment Not on file documented as of this encounter Procedures Procedure Name Priority Date/Time Associated Diagnosis Comments MRI SPINE NEUROLOGIC FOCUS OUTSIDE (NO INTERPRETATION) Routine 12/12/2012 12:00 AM EDT documented in this encounter Results * MRI Spine (Neuro) Outside (No Interpretation) (12/12/2012 12:00 AM EDT) Narrative [facility] [place] - 03/11/2016 2:16 PM EDT This study is for PACS storage only and not for interpretation. Procedure Note SYSTEMGENERATED, DOCUMENTATION - 03/11/2016 This study is for PACS storage only and not for interpretation. us Jovany Bailey MD IMG OUTSIDE IMAGING W/OUT INTE RPRETATION Final Result [facility] INTERFACES documented in this encounter Visit Diagnoses Not on filedocumented in this encounter Additional Source Comments The information contained in this document represents components of the legal health record. It is not the complete legal health record.[facility]
--- OUTSIDE RECORDS SUMMARY | 2013-12-11 | XMS_ITS | Encounter Summary ---
Author Organization [facility] Address [address] [place] [address] Phone Care Team Providers Care Dental Insurance Biller Name Role Phone Unavailable Primary Care Provider Unavailabl e Encounter Details Date Type Department Care Team (Late st Contact Info) Description 12/11/2013 Hospital Encounter [facility] [address] [place] [address] Jovany Bailey MD [address] [place] [address] [email or web address] Social History Tobacco Use Types [...] (No Interpretation) (12/11/2013 12:00 AM EDT) Narrative [facility] [place] [facility] INTERFACES - 03/11/2016 2:15 PM EDT This study is for PACS storage only and not for interpretation. Procedure Note SYSTEMGENERATED, DOCUMENTATION - 03/11/2016 This study is for PACS storage only and not for interpretation. us Jovany Bailey MD IMG OUTSIDE IMAGING W/OUT INTE RPRETATION Final Result [facility] INTERFACES documented in this encounter Visit Diagnoses Not on filedocumented in this encounter Additional Source Comments The information contained in this document represents components of the legal health record. It is not the complete legal health record.[facility]
--- OUTSIDE RECORDS SUMMARY | 2016-03-02 | XMS_ITS | Encounter Summary ---
Author Organization [facility] Address [address] [place] [phone] Phone Care Team Providers Care Linen Manager Name Role Phone Pcp, Not Required Primary Care Provider Unavaila ble Encounter Details Date Type Department Care Team (Late st Contact Info) Description 2016 Hospital Encounter [facility] [address] [place] [address] Jovany Bailey MD [address] [place] [address] [email or web address] Social History Tobacco Use Types Packs/Day [...] SPINE NEUROLOGIC FOCUS OUTSIDE (NO INTERPRETATION) Routine 2016 12:00 AM EDT documented in this encounter Results * MRI Spine (Neuro) Outside (No Interpretation) (2016 12:00 AM EDT) Narrative [facility] [place] - 04/05/2016 12:12 PM EDT This study is for PACS storage only and not for interpretation. Procedure Note SYSTEMGENERATED, DOCUMENTATION - 04/05/2016 This study is for PACS storage only and not for interpretation. us Jovany Bailey MD IMG OUTSIDE IMAGING W/OUT INTE RPRETATION Final Result [facility] INTERFACES documented in this encounter Visit Diagnoses Not on filedocumented in this encounter Care Teams Linen Manager Relationship Specialty Start Date End Date Pcp, Not Required [address] [place] [id number] PCP - General 01/18/14 04/19/16 documented as of this encounter Additional Source Comments The information contained in this document represents components of the legal health record. It is not the complete legal health record.[facility]
--- NOTE | 2025-04-05 13:48 | A.OFFPC_ITS ---
Intake Visit Reasons: Telehealth 2 mos HLD Intake Note: patient here for 2 month Telehealth follow up for HLD Poly Operator Required: No Allergies latex Allergy (Intermediate, Verified 04/05/25 13:48) Rash Penicillins Allergy (Intermediate, Verified 04/05/25 13:48) Swelling Tobacco use date assessed: 04/05/25 Fall risk assessment: 2 + Falls in past year Last assessed Fall Risk: 04/05/25 Dental Screening Dental Screen Date: 04/05/25 Did you have a dental visit in the last 12 months?: No Did you have a dental problem in the last 6 months where you did not have access to dental care?: No Was dental information given to patient?: No HPI HPI Comments History of Present Illness Details 80-year-old male presents for telehealth visit for hyperlipidemia follow-up. He admits to taking his medications as prescribed without adverse reactions. He notes that he has been making healthy dietary choices and exercising ro utinely. He has significantly cut down on eating red meat. He offers no complaints and denies acute symptoms at this time. [facility] Medical History (Updated 10/07/24 @ 15:08 by Denver Mckinley CNP) Brain aneurysm Depression Anxiety Imbalance Neuropathy Enlarged prostate Acid reflux Back disorder High cholesterol Sinusitis Surgical History (Updated 10/06/24 @ 14:10 by Denver Mckinley CNP) Status post ORIF of fracture of ankle History of repair of left rotator cuff History of repair of right rotator cuff History of laminectomy Family History (Updated 10/06/24 @ 12:55 by Erika Chicas MA) Paternal Grandfather Alcohol abuse Maternal Grandfather Suicide Social History Housing: House Patient Tobacco Use Status: Former Tobacco user Cigarette Packs Per Day: 0.5 Cigarettes Per Day: 10 Years Smoked: 15 e-Cigarette/Vaping Use: Never Used Second Hand Smoke Exposure: No service: No Current occupational status: disabled Current occupational exposures/hazards: No Cognitive needs: Yes (cane) Hearing needs: No Vision needs: Yes Questionnaire Thrive Questionnaire Date Thrive assessed: 10/05/24 I am a: Patient What is your living situation today?: I have a steady place to live Within the past 12 months, did the food you bought not last and you didn't have the money to get more?: Never true Within the past 12 months, did you worry whether your food would run out before you got money to buy more?: Never true Do you have trouble paying for medicines?: No Do you have trouble getting transportation to medical appointments?: No Do you have trouble paying your heating and electricity bill?: No Do you have trouble taking care of your child, family member or friend?: No Do you have trouble with day-to-day activities such as bathing, preparing meals, shopping, managing finances, etc.?: Yes Are you currently unemployed and looking for a job?: No Are you interested in more education?: No Please select the resources that you would like help with: None Currently or been in a relationship where the following occur: No concerns reported THRIVE Score: 0 TUAN-7 AMB Questionnaire TUAN-7 Date TUAN - 7 assessed: 10/06/24 Source: Developed by Drs. Orlando Bowen, Dorys Monae, Luan Bonilla and colleagues, with an educational josé miguel from [employer]. Review of Systems Const Details: Denies chills, Denies fatigue, Denies fever(s), Denies headache(s) and Denies weakness Cardiac Denies chest pain, Denies claudication, Denies leg edema, Denies lightheadedness, Denies palpitations, Denies dyspnea, Denies dyspnea on exertion, Denies orthopnea and Denies other (Loss of consciousness) Resp Denies cough, Denies excessive phlegm production, Denies dyspnea, Denies dyspnea on exertion, Denies snoring and Denies wheezing Physical exam (Primary Care) Tobacco/Smoking Status: Tobacco use Status Tobacco use date assessed 04/05/25 04/05/25 13:50 Patient Tobacco Use Status Former Tobacco user 04/05/25 13:50 e-Cigarette/Vaping Use Never Used 04/05/25 13:50 Thrive Assessment: Date of Thrive Assessment Date Thrive assessed 10/05/24 04/05/25 13:50 Currently or been in a relationship where the following occur: No concerns reported Const Other: Patient is alert and oriented x3 Telehealth Telehealth Telehealth Platform: Telephone Location of provider rendering services: practice address Location of patient: address on file Patient Identification confirmed using: Name, : Yes Telehealth method: voice only Patient verbally consented to treatment: Yes Patient verbally consented to billing insurance company: Yes Patient informed of any privacy concerns related to visit: Yes Coding Level of Care Code Tele Est Pt Level 3 (75028) Diagnoses High cholesterol E78.00 Time Spent (min) 10 Assessment & Plan Assessment & Plan (1) High cholesterol: Code(s): E78.00 - Pure hypercholesterolemia, unspecified Category: Medical Plan: Recent triglycerides, total cholesterol, and LDL levels are normal; HDL is slightly low, 39. Continue current treatment regimen. Advised to limit foods high in saturated fat and avoid foods high in trans fat. Routine exercise encouraged. Will monitor lipid panel level annually or as needed. Advised to follow-up for an extended physical exam after 10/06/2025. Return sooner with symptoms or concerns. Verbalized understanding and agreed with the plan.
--- OUTSIDE RECORDS SUMMARY | 2025-04-05 17:57 | XMS_ITS | Encounter Summary ---
Author Organization [facility] Address [address] [facility] [address] [place] [address] Phone Care Team Providers Care Qa Automation Engineer Name Role Phone Jovany Watkins Primary Care Provider +1- [phone] Reason for Referral * Consultation (Elective) - Closed Specialty Diagnoses / Procedures Referred By Contbetsey t Referred To Contact Neurology Diagnoses Polyneuropathy Layla Linn DO [address] [address] Phone: tel: Referral ID Status Reason Start Date Expiration Date Visits Re quested Visits Authorized [id number] Closed 04/16/2018 04/16/2019 1 1 Encounter Details Date Type Department Care Team (Late st Contact Info) Description 04/16/2018 Transcribe Orders [facility] Department of Neurology [address] [place] [address], [address] Floor, [address] [place] [address] Layla Linn DO Polyneuropathy Social History Tobacco [...] Associated Diagnoses Order Schedule Ambulatory referral to [facility] Neurology Outpatient Referral Routine Polyneuropathy Ordered: 04/16/2018 documented as of this encounter Visit Diagnoses Diagnosis Polyneuropathy Unspecified hereditary and idiopathic peripheral neuropathy documented in this encounter Care Teams Qa Automation Engineer Relationship Specialty Start Date End Date Jovany Watkins PA PCP - General 04/20/16 documented as of this encounter Additional Source Comments The information contained in this document represents components of the legal health record. It is not the complete legal health record.[facility]
--- OUTSIDE RECORDS SUMMARY | 2025-04-05 17:57 | XMS_ITS | Encounter Summary ---
Author Organization [facility] Address [address] [place] [address] [place] [address] Phone Care Team Providers Care Aniline Press Worker Name Role Phone Jovany Watkins Primary Care Provider +1- [phone] Encounter Details Date Type Department Care Team (Late st Contact Info) Description 10/27/2017 Procedure Pass [facility] [address] [place] [id number] Social History Tobacco Use Types Packs/Day Years [...] on filedocumented in this encounter Care Teams Aniline Press Worker Relationship Specialty Start Date End Date Jovany Watkins PA PCP - General 04/20/16 documented as of this encounter Additional Source Comments The information contained in this document represents components of the legal health record. It is not the complete legal health record.[facility]
--- OUTSIDE RECORDS SUMMARY | 2025-04-05 17:57 | XMS_ITS | Clinical Summary ---
Author Organization [facility] Address [address] [place] [address] Phone Care Team Providers Care Digital Forensic Examiner Name Role Phone Jovany Watkins Primary Care Provider +1- [phone] Allergies Active Allergy Reactions Criticality Noted Date [...] this topic Medical Devices Implanted Type Area Crib Tender Device Identifier Shelf Expiration Date Model / Serial / Lot Modulus Tlif-O [id number] Implanted:Qty: 1 on 10/19/2018 by Jovany Bailey MD at [facility] Cage N/A: Spine Lumbar [employer] 03/30/2023 [id number] / / [id number] Left Ankle Hardware Screw Spine Titanium Polyaxial Pk/2ea - [id number] Implanted:Qty: 2 on 10/19/2018 by Jovany Bailey MD at [facility] N/A: Spine Lumbar [employer] [id number] / / Screw Spine 6mm Reline Locking - [id number] Implanted:Qty: 4 on 10/19/2018 by Jovany Bailey MD at [facility] N/A: Spine Lumbar [employer] [id number] / / Spine Zhou 45x5.5mm Reline Titanium Lordotic - [id number] Implanted:Qty: 2 on 10/19/2018 by Jovany Bailey MD at [facility] N/A: Spine Lumbar [employer] [id number] / / [place] [facility] [place] [facility] [place] [address] [place] [address] [place] [phone] MEDICARE RAILROAD [facility] MEDICARE RAILROAD [facility] [place] [facility] [place] [facility] [place] [address] [place] [address] MEDICARE [address] [facility] [address] [place] [address]HEALTH MEDICARE RAILROAD [facility] [place] [facility] Advance Directives For more information, please contact: [phone] (9AM - 5PM [facility], Friday-Friday) Documents on File Type Date Recorded Patient Medical Driver Expl anation Healthcare Proxy 10/23/2018 4:00 PM * Full Code (Presumed) (Latest Code Status on File) Date Activated Date Inactivated Comments 10/19/2018 3:43 PM 10/22/2018 4:36 PM * Full Code (Presumed) Date Activated Date Inactivated Comments 04/22/2016 4:21 PM 04/23/2016 1:42 PM Care Teams Digital Forensic Examiner Relationship Specialty Start Date End Date Jovany Watkins PA PCP - General 04/20/16 Additional Source Comments The information contained in this document represents components of the legal health record. It is not the complete legal health record.[facility]
--- OUTSIDE RECORDS SUMMARY | 2025-04-05 17:57 | XMS_ITS | Encounter Summary ---
Author Organization [facility] Address [address] [place] [address] [place] [address] Phone Care Team Providers Care Cover Cutter Machine Name Role Phone Jovany Watkins Primary Care Provider +1- [phone] Encounter Details Date Type Department Care Team (Late st Contact Info) Description 10/19/2018 Procedure Pass [facility] [address] [place] [phone] Social History Tobacco Use Types Packs/Day Years [...] of Assessment Author No 04/22/2016 6:14 PM Karley Hodgson PA-C * Patient has serious difficulty [...] on filedocumented in this encounter Care Teams Cover Cutter Machine Relationship Specialty Start Date End Date Jovany Watkins PA PCP - General 04/20/16 documented as of this encounter Additional Source Comments The information contained in this document represents components of the legal health record. It is not the complete legal health record.[facility]
--- OUTSIDE RECORDS SUMMARY | 2025-04-05 17:57 | XMS_ITS | Encounter Summary ---
Author Organization [facility] Address [address] [facility] [address] [place] [address] Phone Care Team Providers Care Chief Mechanical Officer Name Role Phone Jovany Watkins Primary Care Provider +1- [phone] Encounter Details Date Type Department Care Team (Late st Contact Info) Description 09/18/2017 Procedure Pass [facility] [address] [place] [address] Social History Tobacco Use Types Packs/Day Years [...] on filedocumented in this encounter Care Teams Chief Mechanical Officer Relationship Specialty Start Date End Date Jovany Watkins PA PCP - General 04/20/16 documented as of this encounter Additional Source Comments The information contained in this document represents components of the legal health record. It is not the complete legal health record.[facility]
--- OUTSIDE RECORDS SUMMARY | 2025-04-05 17:57 | XMS_ITS | Encounter Summary ---
Author Organization [facility] Address [address] [facility] [address] [place] [address] Phone Care Team Providers Care Xerox Machine Operator Name Role Phone Jovany Watkins Primary Care Provider +1- [phone] Encounter Details Date Type Department Care Team (Late st Contact Info) Description 09/01/2017 Procedure Pass [facility] [address] [place] [address] Social History Tobacco Use Types Packs/Day Years [...] on filedocumented in this encounter Care Teams Xerox Machine Operator Relationship Specialty Start Date End Date Jovany Watkins PA PCP - General 04/20/16 documented as of this encounter Additional Source Comments The information contained in this document represents components of the legal health record. It is not the complete legal health record.[facility]
--- OUTSIDE RECORDS SUMMARY | 2025-04-05 17:57 | XMS_ITS | Encounter Summary ---
Author Organization [facility] Address [address] [place] [address] [place] [address] Phone Care Team Providers Care Bottle Labeler Name Role Phone Jovany Watkins Primary Care Provider +1- [phone] Encounter Details Date Type Department Care Team (Late st Contact Info) Description 09/16/2018 Procedure Pass [facility] [address] [place] [phone] Social History Tobacco Use Types Packs/Day Years [...] on filedocumented in this encounter Care Teams Bottle Labeler Relationship Specialty Start Date End Date Jovany Watkins PA PCP - General 04/20/16 documented as of this encounter Additional Source Comments The information contained in this document represents components of the legal health record. It is not the complete legal health record.[facility]
--- OUTSIDE RECORDS SUMMARY | 2025-04-05 17:57 | XMS_ITS | Clinical Summary ---
Author Organization [address] [facility] Address [address] [place] [address] Phone Care Team Providers Care Computer Systems Support Specialist Name Role Phone Jovany Watkins Primary Care Provider [phone] Allergies Active Allergy Reactions Criticality Noted Date [...] 6 Neuropathy 08/10/2015 Overview (08/03/2024): Both legs. [place] to be spinal stenosis and neuropathy Vitamin D deficiency 11/23/2014 Hypercholesteremia 09/13/2014 Spinal stenosis 12/10/2013 Overview (08/03/2024): [place] [facility] 03[place]. Multilevel degenerative changes with spinal canal stenosis, most severe L4-5. Similar to 2013 Obesity, unspecified 12/11/2012 Encounters Date Type Department Care Team Description 01/27/2025 10:25 AM EDT - 01/27/2025 11:43 AM EDT Emergency [facility] Emergency [address] [place] [address] Allergic reaction, initial encounter (Primary [...] mg/dL Blood Venous blood specimen / Unknown [facility] Provider LAB BLOOD ORDERABLES Tammy l Result from Last 3 Months or Most Recently Relevant to Health Maintenance Insurance [facility] Care Teams Computer Systems Support Specialist Relationship Specialty Start Date End Date Jovany Watkins PA [address] [place] [phone] PCP - General Internal Medicine 08/11/24
--- OUTSIDE RECORDS SUMMARY | 2025-04-05 17:57 | XMS_ITS | Encounter Summary ---
Author Organization [facility] Address [address] [facility] [address] [place] [address] Phone Care Team Providers Care Senior Net Architect Name Role Phone Jovany Watkins Primary Care Provider [phone]- [phone] Encounter Details Date Type Department Care Team (Late st Contact Info) Description 10/07/2018 Procedure Pass [facility] [address] [place] [address] Social History Tobacco Use Types Packs/Day Years [...] on filedocumented in this encounter Care Teams Senior Net Architect Relationship Specialty Start Date End Date Jovany Watkins PA PCP - General 04/20/16 documented as of this encounter Additional Source Comments The information contained in this document represents components of the legal health record. It is not the complete legal health record.[facility]
== END 2025-04-05 14:25 | disposition home or self-care (01) ==
LOC: HO.HMCFM 14:07
PROVIDERS: PCP Nurse Practitioner Family; Visit Provider Nurse Practitioner Family
DX: E78.00 Pure hypercholesterolemia, unspecified (principal)